=== PATIENT | male | born 1950 | race Caucasian/White ===

== ENCOUNTER 2020-12-31 10:11 | Emergency (ER) | payer OTHER ==
[2020-12-31 12:33] LABS: Protime INR 1.15
[2020-12-31 12:42] LABS: Absolute Lymphocytes (CBC) 0.6 K/uL (0.7-4.9); Basophils % 0.8 % (0-1.3); Hematocrit 31.6 % (39.6-49.0); Lymphocytes % 12.5 % (15.3-44.8); MPV 8.3 fL (7.6-11.3); RBC Red Blood Cell Count 3.65 M/uL (4.33-5.43)
[2020-12-31 12:46] LABS: ALT/SGPT 16 U/L (12-78); AST/SGOT 12 U/L (15-37); Albumin 3.3 g/dL (3.4-5.0); Alkaline Phosphatase 45 U/L (45-117); BUN Blood Urea Nitrogen 21 mg/dL (7-18); Bicarbonate 25 mmol/L (21-32); Bilirubin Direct 0.1 mg/dL (0-0.2); Bilirubin Total 0.5 mg/dL (0.2-1.0); Glucose Level 92 mg/dL (74-106); NT PRO-BNP 280 pg/mL (<125); Potassium 5.2 mmol/L (3.5-5.1); Protein, Total 6.1 g/dL (6.4-8.2); Sodium Level 135 mmol/L (136-145); Troponin (Emerg Dept Use Only) < 0.02 ng/mL (0.0-0.045)
[2020-12-31] MEDS ORDERED: NA CHLORIDE 0.9% 1,000 ML ONE (13:29)
--- NOTE | 2020-12-31 13:40 | RAD REPORT ---
EXAM DESCRIPTION: RAD - Chest Single View - 12/31/2020 1:28 pm CLINICAL HISTORY: CHEST PAIN Chest pain. COMPARISON: Chest Single View dated 01/04/2017; CHEST SINGLE VIEW dated 09/22/2014 FINDINGS: Portable technique limits examination quality. The lungs are grossly clear. The heart is normal in size. No displaced fractures. IMPRESSION: No acute intrathoracic process suspected.
--- NOTE | 2020-12-31 14:52 | ER ---
Nurse's Notes [facility] Name: Thong Mar Age: 70 yrs Sex: Male : 1950 Arrival Date: 12/31/2020 Time: 10:14 Bed 10 Private MD: Diagnosis: Syncope Near;Bradycardia, unspecified;Hyperkalemia;Low back pain-CHRONIC Presentation: 12/31 11:05 Chief complaint: EMS states: Toned out for back pain and generalized weakness, pt was jl7 walking and laid down because his back was hurting. BP 122/78; HR 64. Coronavirus screen: Vaccine status: Patient reports receiving the 2nd dose of the covid vaccine. Ebola Screen: No symptoms or risks identified at this time. Initial Sepsis Screen: Does the patient meet any 2 criteria? No. Patient's initial sepsis screen is negative. Does the patient have a suspected source of infection? No. Patient's initial sepsis screen is negative. Risk Assessment: Do you want to hurt yourself or someone else? Patient reports no desire to harm self or others. Onset of symptoms is unknown. 11:05 Method Of Arrival: EMS: [facility] 7 11:05 Acuity: GAYATRI 3 jl7 11:05 Care prior to arrival: None. jl7 12:06 Acuity: GAYATRI 2 jl7 Triage Assessment: 11:08 General: Appears in no apparent distress. uncomfortable, Behavior is calm, cooperative, jl7 appropriate for age. Pain: Complains of pain in low back area Pain currently is 10 out of 10 on a pain scale. EENT: Oral mucosa is moist. Poor dentition noted. Neuro: Level of Consciousness is awake, alert, obeys commands, Oriented to person, place, time. Cardiovascular: Denies chest pain, Patient's skin is warm and dry. Rhythm is regular. Respiratory: Airway is patent Respiratory effort is even, unlabored, Respiratory pattern is regular, symmetrical. Derm: Skin is dry, Skin is pale, Skin temperature is cool. Historical: - Allergies: 11:08 No Known Allergies; jl7 - Home Meds: 11:08 gabapentin oral [Active]; jl7 - PMHx: 11:08 hypotension; Chronic back pain; jl7 - Immunization history:: Adult Immunizations unknown, Client reports receiving the 2nd dose of the Covid vaccine. - Social history:: Smoking status: Patient denies any tobacco usage or history of. - Family history:: not pertinent. Screenin:20 Abuse screen: Denies threats or abuse. Nutritional screening: No deficits noted. vg1 Nutritional screening: No deficits noted. Tuberculosis screening: No symptoms or risk factors identified. Fall Risk No fall in past 12 months (0 pts). No secondary diagnosis (0 pts). IV access (20 points). Ambulatory Aid- Crutches/Cane/Walker (15 pts). Gait- Weak (10 pts.). Mental Status- Oriented to own ability (0 pts). Total Alvarez Fall Scale indicates High Risk Score (45 or more points). Fall prevention measures have been instituted. Side Rails Up X 2 Placed Close to Nursing Station. Assessment: 12:18 General: Appears in no apparent distress. comfortable, Behavior is calm, cooperative. vg1 Pain: Complains of pain in right arm and left arm and back Pain currently is 10 out of 10 on a pain scale. Quality of pain is described as aching. Neuro: Level of Consciousness is awake, alert, obeys commands, Oriented to person, place, time, situation, Reports dizziness. Cardiovascular: Patient's skin is warm and dry. Respiratory: Airway is patent Respiratory effort is even, unlabored. GI: Reports constipation, bloody stool, nausea, pt states has one BM once a week and occasionally will notice blood in stool. States has to take a laxative to help go to the restroom. : No signs and/or symptoms were reported regarding the genitourinary system. EENT: Lid(s) pale. Derm: Skin is intact, Skin is pale. Musculoskeletal: Circulation, motion, and sensation intact. 13:11 Reassessment: Patient appears in no apparent distress at this time. No changes from vg1 previously documented assessment. Patient and/or family updated on plan of care and expected duration. Pain level reassessed. Patient is alert, oriented x 3, equal unlabored respirations, skin warm/dry/pink. 16:40 Reassessment: Patient appears in no apparent distress at this time. Patient and/or vg1 family updated on plan of care and expected duration. Pain level reassessed. Patient is alert, oriented x 3, equal unlabored respirations, skin warm/dry/pink. Patient denies pain at this time. 17:42 Reassessment: Patient appears in no apparent distress at this time. Patient and/or vg1 family updated on plan of care and expected duration. Pain level reassessed. Pt resting with eyes closed. Vital Signs: 11:05 BP 90 / 67; Pulse 45; Resp 17; Temp 97.8; Pulse Ox 100% on R/A; Weight 61.23 kg (R); jl7 Height 5 ft. 11 in. (180.34 cm); Pain 10/10; 12:00 BP 138 / 100; Pulse 36; Resp 14; Pulse Ox 100% ; vg1 12:06 Pulse 35; jl7 12:56 BP 129 / 70; Pulse 36; Resp 16; Pulse Ox 100% on R/A; ss 13:00 BP 125 / 69; Pulse 37; Resp 14; Pulse Ox 99% ; vg1 13:15 BP 121 / 72; Pulse 37; Resp 16; Pulse Ox 100% on R/A; vg1 13:30 BP 122 / 65; Pulse 38; Resp 16; Pulse Ox 100% on R/A; vg1 14:00 BP 130 / 58; Pulse 37; Resp 14; Pulse Ox 100% on R/A; vg1 14:30 BP 138 / 64; Pulse 37; Resp 14; Pulse Ox 100% on R/A; vg1 15:00 BP 126 / 72; Pulse 37; Resp 14; Pulse Ox 100% on R/A; vg1 15:30 BP 124 / 70; Pulse 38; Resp 14; Pulse Ox 100% on R/A; vg1 16:00 BP 117 / 54; Pulse 54; Resp 14; Pulse Ox 100% on R/A; vg1 16:30 BP 111 / 61; Pulse 53; Resp 14; Pulse Ox 98% on R/A; vg1 17:30 BP 118 / 67; Pulse 45; Resp 16; Pulse Ox 98% on R/A; vg1 11:05 Body Mass Index 18.83 (61.23 kg, 180.34 cm) jl7 ED Course: 10:14 Patient arrived in ED. rg4 11:08 Triage completed. jl7 11:08 Arm band placed on right wrist. jl7 11:20 Patient placed in waiting room, Patient notified of wait time. jl7 12:03 Initial lab(s) drawn, by me, sent to lab. Inserted saline lock: 20 gauge in right vg1 forearm, using aseptic technique. Blood collected. 12:17 Fatimah Argueta, RN is Primary Nurse. vg1 12:20 Patient has correct armband on for positive identification. Bed in low position. Call vg1 light in reach. Side rails up X2. clinical research monitor on. Pulse ox on. NIBP on. 12:20 No provider procedures requiring assistance completed. vg1 12:58 Bin Cornelius MD is Attending Physician. [facility] 13:21 Inserted saline lock: 18 gauge in left forearm, using aseptic technique. Blood ds4 collected. 13:28 XRAY Chest (1 view) In Process Unspecified. EDMS 14:49 Bernabe Kaiser DO is Hospitalizing Provider. [facility] 19:54 Patient transferred, IV remains in place. vg1 Administered Medications: 13:21 Drug: NS 0.9% 1000 ml Route: IV; Rate: 125 ml/hr; Site: right forearm; vg1 19:54 Follow up: IV Status: Infusion continued upon transfer vg1 15:25 Drug: Albuterol 5 mg Route: Inhalation; vg1 15:30 Drug: Kayexalate (polystyrene) 45 grams Route: PO; vg1 19:07 Follow up: Response: No adverse reaction vg1 Outcome: 14:51 Decision to Hospitalize by Provider. joseph 16:10 ER care complete, transfer ordered by . [facility] 19:54 Transferred by ground EMS to [facility]. vg1 19:54 Condition: stable 19:54 Instructed on the need for transfer. 20:02 Patient left the ED. vg1 Signatures: Dispatcher [employer] EDSD Bin Cornelius MD MD cha Smirch, Shelby RN RN Milton Cantu ds4 Ludy Argueta rg4 Prema Gamboa RN RN jl7 Fatimah Argueta, RN RN vg1 Corrections: (The following items were deleted from the chart) 13:45 13:10 BP 125 / 69; Pulse 37bpm; Resp 14bpm; Pulse Ox 99%; vg1 vg1
--- NOTE | 2020-12-31 14:52 | EDPHYS ---
Physician Documentation [facility] Name: Thong Mar Age: 70 yrs Sex: Male : 1950 Arrival Date: 12/31/2020 Time: 10:14 Bed 10 Private MD: ED Physician Bin Cornelius HPI: 12/31 14:36 This 70 yrs old Male presents to ER via EMS with complaints of Weakness. joseph 14:36 The patient presents with a history of irregular heart beat. Context: The symptoms joseph occur with light activity. Onset: The symptoms/episode began/occurred just prior to arrival. Duration: The patient or guardian reports multiple episodes, with no pattern. Modifying factors: The symptoms are aggravated by nothing. The symptoms are alleviated by nothing. The patient presents with pain that is acute. The symptoms are located in the low back. The pain does not radiate. Historical: - Allergies: 11:08 No Known Allergies; jl7 - Home Meds: 11:08 gabapentin oral [Active]; jl7 - PMHx: 11:08 hypotension; Chronic back pain; jl7 - Immunization history:: Adult Immunizations unknown, Client reports receiving the 2nd dose of the Covid vaccine. - Social history:: Smoking status: Patient denies any tobacco usage or history of. - Family history:: not pertinent. ROS: 14:36 Constitutional: Negative for fever, chills, and weight loss, Eyes: Negative for injury, josehp pain, redness, and discharge, ENT: Negative for injury, pain, and discharge, Neck: Negative for injury, pain, and swelling, Respiratory: Negative for shortness of breath, cough, wheezing, and pleuritic chest pain, Abdomen/GI: Negative for abdominal pain, nausea, vomiting, diarrhea, and constipation, : Negative for injury, bleeding, discharge, and swelling, MS/Extremity: Negative for injury and deformity, Skin: Negative for injury, rash, and discoloration, Neuro: Negative for headache, weakness, numbness, tingling, and seizure, Psych: Negative for depression, anxiety, suicide ideation, homicidal ideation, and hallucinations, Allergy/Immunology: Negative for hives, rash, and allergies, Endocrine: Negative for neck swelling, polydipsia, polyuria, polyphagia, and marked weight changes, Hematologic/Lymphatic: Negative for swollen nodes, abnormal bleeding, and unusual bruising. 14:36 Cardiovascular: Positive for palpitations. 14:36 Back: Positive for decreased range of motion, 3 yrs no different. Exam: 14:36 Constitutional: This is a well developed, well nourished patient who is awake, alert, joseph and in no acute distress. Head/Face: Normocephalic, atraumatic. Eyes: Pupils equal round and reactive to light, extra-ocular motions intact. Lids and lashes normal. Conjunctiva and sclera are non-icteric and not injected. Cornea within normal limits. Periorbital areas with no swelling, redness, or edema. ENT: Nares patent. No nasal discharge, no septal abnormalities noted. Tympanic membranes are normal and external auditory canals are clear. Oropharynx with no redness, swelling, or masses, exudates, or evidence of obstruction, uvula midline. Mucous membranes moist. Neck: Trachea midline, no thyromegaly or masses palpated, and no cervical lymphadenopathy. Supple, full range of motion without nuchal rigidity, or vertebral point tenderness. No Meningismus. Chest/axilla: Normal chest wall appearance and motion. Nontender with no deformity. No lesions are appreciated. Respiratory: Lungs have equal breath sounds bilaterally, clear to auscultation and percussion. No rales, rhonchi or wheezes noted. No increased work of breathing, no retractions or nasal flaring. Abdomen/GI: Soft, non-tender, with normal bowel sounds. No distension or tympany. No guarding or rebound. No evidence of tenderness throughout. Male : Normal genitalia with no discharge or lesions. Skin: Warm, dry with normal turgor. Normal color with no rashes, no lesions, and no evidence of cellulitis. MS/ Extremity: Pulses equal, no cyanosis. Neurovascular intact. Full, normal range of motion. Neuro: Awake and alert, GCS 15, oriented to person, place, time, and situation. Cranial nerves II-XII grossly intact. Motor strength 5/5 in all extremities. Sensory grossly intact. Cerebellar exam normal. Normal gait. Psych: Awake, alert, with orientation to person, place and time. Behavior, mood, and affect are within normal limits. 14:36 Cardiovascular: Rate: bradycardic, Rhythm: regular, Pulses: Pulses are 4+ in bilateral radial, brachial, femoral, popliteal, posterior tibial and and dorsalis pedis arteries.. Heart sounds: normal, murmur, rub, gallop, Edema: is not appreciated, JVD: is not appreciated, Bilateral blood pressure: is equal. 14:51 ECG was reviewed by the Attending Physician. joseph 14:51 ECG was reviewed by the Attending Physician. [facility] Vital Signs: 11:05 BP 90 / 67; Pulse 45; Resp 17; Temp 97.8; Pulse Ox 100% on R/A; Weight 61.23 kg (R); jl7 Height 5 ft. 11 in. (180.34 cm); Pain 10/10; 12:00 BP 138 / 100; Pulse 36; Resp 14; Pulse Ox 100% ; vg1 12:06 Pulse 35; jl7 12:56 BP 129 / 70; Pulse 36; Resp 16; Pulse Ox 100% on R/A; ss 13:00 BP 125 / 69; Pulse 37; Resp 14; Pulse Ox 99% ; vg1 13:15 BP 121 / 72; Pulse 37; Resp 16; Pulse Ox 100% on R/A; vg1 13:30 BP 122 / 65; Pulse 38; Resp 16; Pulse Ox 100% on R/A; vg1 14:00 BP 130 / 58; Pulse 37; Resp 14; Pulse Ox 100% on R/A; vg1 14:30 BP 138 / 64; Pulse 37; Resp 14; Pulse Ox 100% on R/A; vg1 15:00 BP 126 / 72; Pulse 37; Resp 14; Pulse Ox 100% on R/A; vg1 15:30 BP 124 / 70; Pulse 38; Resp 14; Pulse Ox 100% on R/A; vg1 16:00 BP 117 / 54; Pulse 54; Resp 14; Pulse Ox 100% on R/A; vg1 16:30 BP 111 / 61; Pulse 53; Resp 14; Pulse Ox 98% on R/A; vg1 17:30 BP 118 / 67; Pulse 45; Resp 16; Pulse Ox 98% on R/A; vg1 11:05 Body Mass Index 18.83 (61.23 kg, 180.34 cm) 7 MDM: 12:58 Patient medically screened. joseph 14:40 Differential diagnosis: arrythmia, dehydration, Cholelithiasis chronic back pain, joseph Fatigue Joint Injury Osteoarthritis Peptic Ulcer Pyelonephritis. Data reviewed: vital signs, nurses notes, EMS record, lab test result(s), EKG, radiologic studies, plain films. Data interpreted: air sampling and monitoring: rate is 38 beats/min, rhythm is regular, Pulse oximetry: on room air is 100 %. Test interpretation: by ED physician or midlevel provider: ECG, plain radiologic studies. Counseling: I had a detailed discussion with the patient and/or guardian regarding: the historical points, exam findings, and any diagnostic results supporting the discharge/admit diagnosis, lab results. 12/31 12:06 Order name: Basic Metabolic Panel; Complete Time: 12:58 ss 12/31 12:06 Order name: CBC with Diff; Complete Time: 12:58 ss 12/31 12:06 Order name: LFT's; Complete Time: 12:58 ss 12/31 12:06 Order name: Magnesium; Complete Time: 12:58 ss 12/31 12:06 Order name: NT PRO-BNP; Complete Time: 12:58 ss 12/31 12:06 Order name: PT-INR; Complete Time: 12:58 ss 12/31 12:06 Order name: Troponin (emerg Dept Use Only); Complete Time: 12:58 ss 12/31 12:06 Order name: XRAY Chest (1 view); Complete Time: 14:34 ss 12/31 12:06 Order name: Type And Screen; Complete Time: 14:41 ss 12/31 13:01 Order name: Urine Culture [facility] 12/31 14:38 Order name: ABO/RH no charge; Complete Time: 14:41 EDMS 12/31 15:44 Order name: Urine Dipstick-Ancillary; Complete Time: 16:07 EDMS 12/31 17:18 Order name: SARS-COV-2 RT PCR; Complete Time: 17:57 EDMS 12/31 12:06 Order name: EKG; Complete Time: 12:06 ss 12/31 12:06 Order name: Cardiac monitoring; Complete Time: 12:21 ss 12/31 12:06 Order name: EKG - Nurse/Tech; Complete Time: 12:06 ss 12/31 12:06 Order name: IV Saline Lock; Complete Time: 12:21 ss 12/31 12:06 Order name: Labs collected and sent; Complete Time: 12:21 ss 12/31 12:06 Order name: O2 Per Protocol; Complete Time: 12:16 ss 12/31 12:06 Order name: O2 Sat Monitoring; Complete Time: 12:17 ss 12/31 13:01 Order name: Urine Dipstick-Ancillary (obtain specimen); Complete Time: 16:20 joseph EC:51 Rate is 35 beats/min. Rhythm is regular. QRS [place] is Normal. [place] interval is normal. QRS joseph interval is normal. QT interval is normal. No Q waves. T waves are Normal. No ST changes noted. Clinical impression: Sinus bradycardia and No evidence of ischemia. Interpreted by me. Reviewed by me. 14:51 Rate is 39 beats/min. Rhythm is regular. QRS [place] is Normal. [place] interval is normal. QRS joseph interval is normal. QT interval is normal. No Q waves. T waves are Normal. No ST changes noted. Clinical impression: Sinus bradycardia and No evidence of ischemia. Interpreted by me. Reviewed by me. Administered Medications: 13:21 Drug: NS 0.9% 1000 ml Route: IV; Rate: 125 ml/hr; Site: right forearm; vg1 19:54 Follow up: IV Status: Infusion continued upon transfer vg1 15:25 Drug: Albuterol 5 mg Route: Inhalation; vg1 15:30 Drug: Kayexalate (polystyrene) 45 grams Route: PO; vg1 19:07 Follow up: Response: No adverse reaction vg1 Disposition Summary: 12/31/20 16:10 Transfer Ordered Transfer Location: [facility] joseph Reason: Higher level of care joseph Condition: Fair(12/31/20 16:10) joseph Problem: new(12/31/20 16:10) joseph Symptoms: have improved(12/31/20 16:10) joseph Accepting Physician: TO [facility](12/31/20 20:02) vg1 Diagnosis - Syncope Near(12/31/20 16:10) joseph - Bradycardia, unspecified(12/31/20 16:10) joseph - Hyperkalemia joseph - Low back pain - CHRONIC(12/31/20 16:11) joseph Forms: - Medication Reconciliation Form joseph - SBAR form joseph Signatures: Dispatcher [employer] Bin Aguiar MD MD cha Smirch, Shelby, RN RN ss Prema Gamboa RN RN jl7 Fatimah Argueta RN RN vg1 Corrections: (The following items were deleted from the chart) 16: 14:51 Observation joseph joseph 16: 14:51 PrezaBernabe johnson joseph joseph 16: 14:51 Telemetry/MedSurg (observation) joseph joseph 16: 14:51 Fair joseph joseph 16: 14:51 new joseph joseph 16: 14:51 have improved joseph joseph 16: 14:51 Standard joseph joseph 16: 14:51 joseph joseph 16: 14:51 Bradycardia, unspecified joseph joseph 16: 14:51 Low back pain - chronic joseph joseph 16: 14:51 Weakness joseph joseph 16: 14:51 Syncope Near joseph joseph 16:11 16:10 TO [facility] joseph joseph 16:18 15:01 CORONAVIRUS+MR.LAB.BRZ ordered. EDMS EDMS 20:02 16:11 TO [facility] vg1
[2020-12-31] MEDS ORDERED: SOD POLYSTYREN SUL 15 GM/60 ML UCUP ONE (15:39)
[2020-12-31] MEDS ORDERED: ALBUTEROL INHALER 60 PUFF/8 GM IH ONE (15:39)
[2020-12-31 15:44] LABS: Urine Blood Negative (Negative); Urine Glucose Negative (Negative); Urine Protein Negative (Negative); Urine pH 5.5 (5.0-7.0)
[2020-12-31 20:43] VITALS: TEMP 97.8
[2020-12-31 20:58] VITALS: O2SAT 98
[2020-12-31 20:59] VITALS: BP 118/67
--- NOTE | 2021-01-01 11:07 | EKG ---
Test Date: 2020-12-31 Test Time: 14:42:29 Motor Scooter Repairer: JEANMARIE MEASUREMENT RESULTS: Intervals: Rate: 39 [place]: QRSD: 78 QT: 502 QTc: 404 [place]: P: [place]: QRS: 37 T: 72 INTERPRETIVE STATEMENTS: Junctional bradycardia Abnormal ECG Compared to ECG 12/31/2020 12:03:04 Sinus bradycardia no longer present Electronically Signed On 01-01-21 11:05:40 CDT by Evaristo Shirley
== END 2020-12-31 20:02 | disposition short-term general hospital (02) ==
LOC: ER 10:11
DX: R00.1 Bradycardia, unspecified (principal); E87.5 Hyperkalemia; M54.5 Low back pain; I95.9 Hypotension, unspecified; Z20.822 Contact with and (suspected) exposure to COVID-19
CPT/HCPCS: 96361; 93005 ×2; 87088; 85025; 87086; 80048; 36415; 86900; 83735; 86850; 85610; 86901; 80076; 81003; 84484; 83880; 71045; 96360; 99285; U0003; J7030

== ENCOUNTER 2021-01-28 11:58 | Emergency (ER) | payer OTHER ==
[2021-01-28 12:23] LABS: Absolute Lymphocytes (CBC) 0.6 K/uL (0.7-4.9); Basophils % 0.3 % (0-1.3); Hematocrit 30.1 % (39.6-49.0); Lymphocytes % 8.7 % (15.3-44.8); MPV 7.5 fL (7.6-11.3); RBC Red Blood Cell Count 3.36 M/uL (4.33-5.43)
[2021-01-28 12:26] LABS: Protime INR 1.09
[2021-01-28 12:45] LABS: BUN Blood Urea Nitrogen 37 mg/dL (7-18); Bicarbonate 30 mmol/L (21-32); Glucose Level 111 mg/dL (74-106); Potassium 4.4 mmol/L (3.5-5.1); Sodium Level 136 mmol/L (136-145)
--- NOTE | 2021-01-28 13:24 | RAD REPORT ---
EXAM DESCRIPTION: RAD - Pelvis - 01/28/2021 1:13 pm CLINICAL HISTORY: Pelvic pain status post injury FINDINGS: A subcapital mildly to moderately displaced fracture right femur. No dislocation
--- NOTE | 2021-01-28 13:25 | RAD REPORT ---
EXAM DESCRIPTION: RAD - Hip Right 2 View - 01/28/2021 1:21 pm CLINICAL HISTORY: Right hip pain FINDINGS: A subcapital mildly to moderately displaced fracture right femur. No dislocation
[2021-01-28] MEDS ORDERED: MORPHINE 2 MG/ML SYR ONE ×3 (13:33→15:27)
[2021-01-28] MEDS ORDERED: ONDANSETRON 4 MG/2 ML VIAL ONE (13:34)
--- NOTE | 2021-01-28 14:11 | ER ---
Nurse's Notes [facility] Name: Thong Mar Age: 70 yrs Sex: Male : 1950 Arrival Date: 01/28/2021 Time: 12:02 Bed 17 Private MD: Diagnosis: Fracture of unspecified part of neck of right femur-Subcapital Presentation: 01/28 12:04 Chief complaint: EMS states: patient fell while getting mail this morning. Coronavirus es2 screen: Vaccine status:. Ebola Screen: Patient negative for fever greater than or equal to 101.5 degrees Fahrenheit, and additional compatible Ebola Virus Disease symptoms Patient denies exposure to infectious person. Patient denies travel to an Ebola-affected area in the 21 days before illness onset. No symptoms or risks identified at this time. Initial Sepsis Screen: Does the patient meet any 2 criteria? No. Patient's initial sepsis screen is negative. Does the patient have a suspected source of infection? No. Patient's initial sepsis screen is negative. Risk Assessment: Do you want to hurt yourself or someone else? Patient reports no desire to harm self or others. Onset of symptoms was January 28, 2021. 12:04 Method Of Arrival: EMS: [facility] es2 12:04 Acuity: GAYATRI 3 es2 Triage Assessment: 12:08 General: Appears well nourished, Behavior is calm, cooperative, appropriate for age. es2 Pain: Denies pain. EENT: No signs and/or symptoms were reported regarding the EENT system. Neuro: Level of Consciousness is awake, alert, obeys commands, Oriented to person, place, time, situation, Appropriate for age Speech is normal. Cardiovascular: Patient's skin is warm and dry. Respiratory: Airway is patent Respiratory effort is even, unlabored, Respiratory pattern is regular, symmetrical. GI: No signs and/or symptoms were reported involving the gastrointestinal system. : No signs and/or symptoms were reported regarding the genitourinary system. Derm: No signs and/or symptoms reported regarding the dermatologic system. Musculoskeletal: Reports discomfort and not being able to walk due to R hip. Historical: - Allergies: 12:06 No Known Allergies; es2 - Home Meds: 12:05 gabapentin 300 mg oral cap 1 cap daily [Active]; es2 12:06 indomethacin 50 mg Oral cap 1 cap as needed [Active]; Ginette Back and Body 500-32.5 mg es2 oral tab as needed [Active]; - PMHx: 12:05 chronic back pain; hypotension; pacemaker; es2 - Immunization history:: Adult Immunizations up to date. - Social history:: Smoking status: Patient denies any tobacco usage or history of. - Family history:: not pertinent. - Hospitalizations: : No recent hospitalization is reported. Screenin:12 Abuse screen: Denies threats or abuse. Denies injuries from another. Nutritional es2 screening: No deficits noted. Tuberculosis screening: No symptoms or risk factors identified. Fall Risk Fall in past 12 months (25 points). IV access (20 points). Mental Status- Oriented to own ability (0 pts). Assessment: 12:11 Reassessment: Patient is alert, oriented x 3, equal unlabored respirations, skin es2 warm/dry/pink. Patient denies pain at this time. General: Appears Behavior is calm, cooperative, appropriate for age. Pain: Denies pain. Neuro: Level of Consciousness is awake, alert, obeys commands, Oriented to person, place, time, situation, Appropriate for age Speech is normal. Cardiovascular: Patient's skin is warm and dry. Respiratory: Airway is patent Respiratory effort is even, unlabored, Respiratory pattern is regular, symmetrical. GI: No signs and/or symptoms were reported involving the gastrointestinal system. : No signs and/or symptoms were reported regarding the genitourinary system. EENT: No signs and/or symptoms were reported regarding the EENT system. Derm: No signs and/or symptoms reported regarding the dermatologic system. 14:44 Reassessment: Patient and/or family updated on plan of care and expected duration. Pain ch5 level reassessed. Patient is alert, oriented x 3, equal unlabored respirations, skin warm/dry/pink. Pt resting in room, aware of transfer, awaiting transportation. Vital Signs: 12:04 BP 108 / 73; Pulse 80; Resp 18; Temp 98.2; Pulse Ox 95% on R/A; es2 14:44 BP 152 / 84; Pulse 70; Resp 17; Pulse Ox 96% on R/A; ch5 ED Course: 12:02 Patient arrived in ED. ch5 12:02 Graf, Shahrzad, RN is Primary Nurse. es2 12:04 Emory Anna MD is Attending Physician. rn 12:05 Triage completed. es2 12:11 Arm band placed on. es2 12:12 Patient has correct armband on for positive identification. Bed in low position. Call es2 light in reach. Side rails up X2. 12:12 Basic Metabolic Panel Sent. es2 12:13 Inserted saline lock: 20 gauge in right forearm, using aseptic technique. Blood es2 collected. 13:14 XRAY Pelvis In Process Unspecified. EDMS 13:21 XRAY Hip RIGHT 2 view In Process Unspecified. EDMS 14:44 CBC with Diff Sent. ch5 Administered Medications: 13:13 Drug: morphine 2 mg Route: IVP; Site: right forearm; ch5 14:45 Follow up: Response: No adverse reaction ch5 13:14 Drug: Zofran (Ondansetron) 4 mg Route: IVP; Site: right forearm; ch5 14:45 Follow up: Response: No adverse reaction ch5 13:20 Drug: morphine 2 mg Route: IVP; Site: right forearm; ch5 14:45 Follow up: Response: No adverse reaction ch5 15:05 Drug: morphine 2 mg {Note: Rass 0.} Route: IVP; Site: right forearm; ch5 15:05 Follow up: Response: No adverse reaction ch5 Outcome: 14:10 ER care complete, transfer ordered by . rn 15:14 Patient left the ED. ch5 Signatures: Dispatcher [employer] Emory Briseno MD MD rn Heath, Christopher, RN RN ch5 Shahrzad Graf RN RN es2
--- NOTE | 2021-01-28 14:11 | EDPHYS ---
Physician Documentation [facility] Name: Thong Mar Age: 70 yrs Sex: Male : 1950 Arrival Date: 01/28/2021 Time: 12:02 Bed 17 Private MD: ED Physician Emory Anna HPI: 01/28 13:12 This 70 yrs old Male presents to ER via EMS with complaints of Fall Injury, rn Hip Pain. 13:12 Details of fall: The patient fell from an upright position, while standing. Onset: The rn symptoms/episode began/occurred just prior to arrival. Associated injuries: The patient sustained Right hip. Severity of symptoms: At their worst the symptoms were moderate, in the emergency department the symptoms are unchanged. The patient has not experienced similar symptoms in the past. The patient has not recently seen a physician. Patient reports getting mail when tripped, fell onto her right hip, reports isolated injury to right hip and thigh. Denies taking any blood thinners. No head injury or loss of consciousness. Remembers all events. Reports remained on ground until somebody came by to help him.. Historical: - Allergies: 12:06 No Known Allergies; es2 - Home Meds: 12:05 gabapentin 300 mg oral cap 1 cap daily [Active]; es2 12:06 indomethacin 50 mg Oral cap 1 cap as needed [Active]; Ginette Back and Body 500-32.5 mg es2 oral tab as needed [Active]; - PMHx: 12:05 chronic back pain; hypotension; pacemaker; es2 - Immunization history:: Adult Immunizations up to date. - Social history:: Smoking status: Patient denies any tobacco usage or history of. - Family history:: not pertinent. - Hospitalizations: : No recent hospitalization is reported. ROS: 13:12 Constitutional: Negative for fever, chills, and weight loss, Eyes: Negative for injury, rn pain, redness, and discharge, Neck: Negative for injury, pain, and swelling, Cardiovascular: Negative for chest pain, palpitations, and edema, Respiratory: Negative for shortness of breath, cough, wheezing, and pleuritic chest pain, Abdomen/GI: Negative for abdominal pain, nausea, vomiting, diarrhea, and constipation, Back: Negative for injury and pain, : Negative for injury, bleeding, discharge, and swelling, MS/Extremity: Positive for right hip injury and pain Skin: Negative for injury, rash, and discoloration, Neuro: Negative for headache, weakness, numbness, tingling, and seizure. Exam: 13:12 Constitutional: This is a well developed, well nourished patient who is awake, alert, rn and in no acute distress. Head/Face: Normocephalic, atraumatic. Eyes: Periorbital areas with no swelling, redness, or edema. Cardiovascular: Irregular rhythm, regular rate. No pulse deficits. Respiratory: No increased work of breathing, no retractions or nasal flaring. Abdomen/GI: Soft, non-tender Skin: Warm, dry, no laceration MS/ Extremity: Pulses equal, no cyanosis. Full range of motion left leg. Painful range of motion with tenderness proximal right leg near hip. Neuro: Awake and alert, GCS 15, oriented to person, place, time, and situation. Cranial nerves II-XII grossly intact. Motor strength 5/5 in all extremities. Sensory grossly intact. Vital Signs: 12:04 BP 108 / 73; Pulse 80; Resp 18; Temp 98.2; Pulse Ox 95% on R/A; es2 14:44 BP 152 / 84; Pulse 70; Resp 17; Pulse Ox 96% on R/A; ch5 MDM: 12:04 Patient medically screened. rn 14:06 Differential diagnosis: contusion, fracture, sprain, strain. Data reviewed: vital rn signs, nurses notes, lab test result(s), EKG, radiologic studies, plain films, and as a result, I will admit patient. Test interpretation: by ED physician or midlevel provider: plain radiologic studies, X-ray right hip shows a subcapital femoral fracture on the right side. Counseling: I had a detailed discussion with the patient and/or guardian regarding: the historical points, exam findings, and any diagnostic results supporting the discharge/admit diagnosis, radiology results, the need for outpatient follow up, to return to the emergency department if symptoms worsen or persist or if there are any questions or concerns that arise at home. Response to treatment: the patient's symptoms have mildly improved after treatment, and as a result, I will admit patient. 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 Will have to transfer for subcapital right femoral fracture. Patient's pain improved. Initiated transfer to [facility].. 01/28 12:04 Order name: CBC with Diff rn 01/28 12:04 Order name: Basic Metabolic Panel rn 01/28 12:04 Order name: Protime (+inr); Complete Time: 13:35 rn 01/28 12:04 Order name: Ptt, Activated; Complete Time: 13:35 rn 01/28 12:05 Order name: CBC with Automated Diff; Complete Time: 13:35 EDMS 01/28 12:05 Order name: Basic Metabolic Panel; Complete Time: 13:35 EDMS 01/28 12:04 Order name: IV Start; Complete Time: 12:12 rn 01/28 12:04 Order name: XRAY Hip RIGHT 2 view; Complete Time: 13:35 rn 01/28 12:04 Order name: EKG; Complete Time: 12:05 rn 01/28 12:04 Order name: XRAY Pelvis; Complete Time: 13:35 rn 01/28 12:04 Order name: EKG - Nurse/Tech; Complete Time: 12:23 rn Administered Medications: 13:13 Drug: morphine 2 mg Route: IVP; Site: right forearm; ch5 14:45 Follow up: Response: No adverse reaction ch5 13:14 Drug: Zofran (Ondansetron) 4 mg Route: IVP; Site: right forearm; ch5 14:45 Follow up: Response: No adverse reaction ch5 13:20 Drug: morphine 2 mg Route: IVP; Site: right forearm; ch5 14:45 Follow up: Response: No adverse reaction ch5 15:05 Drug: morphine 2 mg {Note: Rass 0.} Route: IVP; Site: right forearm; ch5 15:05 Follow up: Response: No adverse reaction ch5 Disposition Summary: 01/28/21 14:10 Transfer Ordered Transfer Location: [facility] rn Reason: Higher level of care rn Condition: Stable rn Problem: new rn Symptoms: have improved rn Accepting Physician: Dr. Saleh(01/28/21 15:14) ch5 Diagnosis - Fracture of unspecified part of neck of right femur - Subcapital rn Forms: - Medication Reconciliation Form rn - SBAR form rn Signatures: Dispatcher [employer] EDCA Emory Anna MD MD rn Heath, Christopher RN RN ch5 Shahrzad Graf RN RN es2 Corrections: (The following items were deleted from the chart) 13:15 13:12 Constitutional: Negative for fever, chills, and weight loss, Eyes: Negative for rn injury, pain, redness, and discharge, Neck: Negative for injury, pain, and swelling, Cardiovascular: Negative for chest pain, palpitations, and edema, Respiratory: Negative for shortness of breath, cough, wheezing, and pleuritic chest pain, Abdomen/GI: Negative for abdominal pain, nausea, vomiting, diarrhea, and constipation, Back: Negative for injury and pain, : Negative for injury, bleeding, discharge, and swelling, MS/Extremity: Positive for right hip injury and pain Skin: Negative for injury, rash, and discoloration, Neuro: Negative for headache, weakness, numbness, tingling, and seizure, rn 13:16 13:12 Constitutional: This is a well developed, well nourished patient who is awake, rn alert, and in no acute distress. rn 15:14 14:10 Dr. Saleh rn ch5
[2021-01-28 15:20] VITALS: TEMP 98.2
[2021-01-28 15:21] VITALS: BP 152/84; O2SAT 96
--- NOTE | 2021-01-29 10:42 | EKG ---
Test Date: 2021-01-28 Test Time: 12:19:06 Warranty Clerk: Tena Ayala MEASUREMENT RESULTS: Intervals: Rate: 82 IN: QRSD: 146 QT: 450 QTc: 525 [place]: P: IN: QRS: -81 T: 98 INTERPRETIVE STATEMENTS: Wide QRS rhythm with frequent atrial-paced complexes and premature supraventricular complexes in a pattern of bigeminy Left axis deviation Right bundle branch block Possible Lateral infarct, age undetermined Inferior infarct, age undetermined Abnormal ECG Compared to ECG 12/31/2020 14:42:29 Uncertain supraventricular rhythm now present Atrial premature complex(es) now present Left-axis deviation now present Right bundle-branch block now present Myocardial infarct finding now present Electronically Signed On 01-29-21 10:40:01 CDT by Evaristo Shirley
== END 2021-01-28 15:14 | disposition short-term general hospital (02) ==
LOC: ER 11:58
DX: S72.011A Unspecified intracapsular fracture of right femur, initial encounter for closed fracture (principal); W01.0XXA Fall on same level from slipping, tripping and stumbling without subsequent striking against object, initial encounter; I95.9 Hypotension, unspecified; Z95.0 Presence of cardiac pacemaker
CPT/HCPCS: 93005; 85025; 80048; 36415; 85610; 85730; 72170; 73502; 96375; 96374; 99284; J2270 ×3; J2405

== ENCOUNTER 2021-05-09 13:37 | Emergency (ER) | payer OTHER, SELFPAY ==
--- OUTSIDE RECORDS SUMMARY | 2021-05-09 13:48 | XMS REPORT | Continuity of Care Document ---
:1950 Author Organization [facility] t Address [address] [place] [address] Care Team Providers Name Role Phone No Primary Care Physician Unavailable LISBET Attending Clinician Unavailable JADE Attending Clinician Unavailable Lacy OJEDA Attending Clinician Unavailable Dora Sutton MD Attending Clinician Lacy Ojeda MD Attending Clinician Ernestina QUAN Attending Clinician Nara Loving MD Attending Clinician Raffi Mead MD Attending Clinician Vanessa Gupta MD Attending Clinician Poncho Esquivel MD Attending Clinician Joshua QUAN Attending Clinician Lacy OJEDA Admitting Clinician Unavailable NARA LOVING Admitting Clinician Unavailable Payers Payer Name Policy Type Policy Number Effective Date Expiration Date S clifford MEDICARE PART A [id number] 2015 2015 AND B 00:00:00 00:00:00 MEDICARE PART A [id number] 2015 00:00:00 Problems Condition Condition Condition Status Onset Resolution Last Treating Co mments Source Name Details Category Date Date Treatment Clinician Date Other Other Disease Active 2020-05 [place] fracture fracture 05-03 Health of head of head 00:00: and neck and neck 00 of right of right femur, femur, initial initial encounter encounter for closed for closed fracture fracture 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 01-11 [facility] - malnutriti malnutriti 00:00: Me dical on on Center MDT DDD MDT DDD Disease Active [facility] pacemaker pacemaker 01-05 [facility] - implant:9::00: Me dical 11/18 Center Chronic Chronic Disease Active [facility] fatigue fatigue 01-01 [facility] Anemia Anemia Disease Active [facility] Junctional Junctional Disease Active [facility] rhythm rhythm 01-01 [facility] - 00:[facility]: [facility] [place] Chronotrop Chronotrop Disease Active [facility] ic ic 01-01 [facility] - incompeten incompeten 00:00: Me dical ce [place] Cachectic Cachectic Disease Active [facility] 01[facility]01 [facility] - [facility]: [facility] [place] Bradycardi Bradycardi Disease Active [facility] a a 12-31 [facility] - 00:00: Medical 00 Center Allergies, Adverse Reactions, Alerts Allergy Allergy Status Severity Reaction(s) Onset Inactive Treating Comm ents Source Name Type Date Date Clinician NKA Allergy Active ENCCLR 01-28 11:57: 41 NO KNOWN Allergy Active [facility] Social History Social Habit Start Date Stop Date Quantity Comments Source Exposure to Not sure [facility] SARS-CoV-2 (event) Tobacco use and 2021-01-02 2021-01-[address] [facility] [facility] - exposure 00:00:00 00:00:00 Medical Center Sex Assigned At [birth year] [place] [facility] 00:[facility]:00 00:00:00 Smoking Status Start Date Stop Date Source Tobacco smoking [facility] consumption unknown Former smoker 2021-01-02 00:00:00 2021-01-[address] [facility] Medications Ordered Filled Start Stop Current Ordering Indication Dosage Frequency Signature Comments Components Source Medication Medication Date Date Medication? Clinician (SIG) Name Name folic acid 2021- 1mg QD Take [address] [facility] [address] (FOLVITE) 1 01-16 tablet (1 Nu kes - MG tablet 00:00: 23:59 mg total) Me dical 00 :00 by mouth Center daily. multivitami 2021- No 1{tbl} QD Take [address] n 01-16 tablet by [facility] - (THERAGRAN) 00:00: 23:59 mouth Medi osiel tablet 00 :00 daily. Center pantoprazol Yes 40mg Q.5D Take [address] [facility] e 01-15 tablet (40 [facility] - (PROTONIX) 00:00: mg total) Me dical 40 MG 00 by mouth 2 Center tablet (two) times daily. fludrocorti 2021- No .1mg QD Take [address] sone 01-15 tablet [facility] - (FLORINEF) 00:00: 23:59 (0.1 mg Med ical 0.1 mg 00 :00 total) by Center tablet mouth daily. midodrine 2020- No 10mg [id number] Take [address] (PROAMATINE 01-15 [id number] tablet (10 [facility] - ) 10 MG 00:00: 23:59 3D mg total) Medi osiel tablet 00 :00 by mouth 3 Center (three) times daily for 30 days. Vital Signs Vital Name Observation Time Observation Value Comments Source WEIGHT 2021-01-15 06:48:00 59.603 kg WEIGHT 2021-01-13 04:41:00 59.149 kg WEIGHT 2021-01-12 04:45:00 59.24 kg WEIGHT 2021-01-10 05:23:00 58.741 kg HEIGHT 2021-01-09 03:58:00 177 cm WEIGHT 2021-01-03 06:00:00 60.3 kg HEIGHT 2020-12-31 21:54:00 177.8 cm WEIGHT 2020-12-31 21:54:00 61.644 kg WEIGHT 2021-01-15 06:48:00 59.603 kg WEIGHT 2021-01-13 04:41:00 59.149 kg WEIGHT 2021-01-12 04:45:00 59.24 kg WEIGHT 2021-01-10 05:23:00 58.741 kg HEIGHT 2021-01-09 03:58:00 177 cm WEIGHT 2021-01-03 06:00:00 60.3 kg HEIGHT 2020-12-31 21:54:00 177.8 cm WEIGHT 2020-12-31 21:54:00 61.644 kg Systolic blood 2021-01-15 15:18:00 140 mm[Hg] [facility] Diastolic blood 2021-01-15 15:18:00 65 mm[Hg] [facility] Heart rate 2021-01-15 15:18:00 60 /min [facility] Body temperature 2021-01-15 15:18:00 36.67 Jacqueline [facility] Respiratory rate 2021-01-15 15:18:00 21 /min [facility] Oxygen saturation in 2021-01-15 15:18:00 97 /min [facility] Arterial blood by Medical Ce nter Pulse oximetry Body weight 2021-01-15 06:48:00 59.603 kg [facility] BMI 2021-01-15 06:48:00 19.02 kg/m2 [facility] Body height 2021-01-09 03:58:00 177 cm [facility] Procedures Procedure Date / Time Performing Clinician Source Performed ABORH, MANUAL 2021-01-15 06:40:00 Sheila Poe [facility] TYPE AND SCREEN, AUTOMATED 2021-01-15 05:55:00 Nasim Middleton [facility] BASIC METABOLIC PANEL (7) 2021-01-15 05:50:00 Tyler Do [facility] CALCIUM, IONIZED 2021-01-15 05:50:00 Ernestina [facility] PHOSPHORUS 2021-01-15 05:50:00 Tyler Do [facility] CBC W/PLT COUNT & AUTO 2021-01-15 05:50:00 Tyler Do CH I [facility] MAGNESIUM 2021-01-15 05:50:00 [facility] W/[facility]T [facility] & AUTO 2021-01-15 05:50:00 Tyler Do [facility] REPORT OF PROCEDURE - 2021-01-14 09:21:27 Mariela Esquivel [facility] REPORT OF PROCEDURE - 2021-01-14 09:17:52 Mariela Esquivel [facility] TISSUE EXAM 2021-01-14 08:29:00 Sheikh Mariela [facility] CBC W/PLT COUNT & AUTO 2021-01-14 08:07:00 [facility] BASIC METABOLIC PANEL (7) 2021-01-14 08:07:00 [facility] PROTHROMBIN TIME/INR 2021-01-14 08:07:00 [facility] CBC W/PLT COUNT & AUTO 2021-01-14 08:07:00 [facility] UPPER ENDOSCOPY,BIOPSY 2021-01-14 08:07:00 Mariela Esquivel [facility] COLONOSCOPY 2021-01-14 08:07:00 Mariela Esquivel [facility] ECG 12-LEAD 2021-01-12 06:47:48 Jose [facility] ECG 12-LEAD 2021-01-11 09:52:47 Jose [facility] ECG 12-LEAD 2021-01-11 09:52:47 Unknown, Hl7 [facility] BASIC METABOLIC PANEL (7) 2021-01-11 05:09:00 Ernestina [facility] CALCIUM, IONIZED 2021-01-11 05:09:00 Ernestina [facility] PHOSPHORUS 2021-01-11 05:09:00 Ernestina [facility] CBC W/PLT COUNT & AUTO 2021-01-11 05:09:00 Tyler Do [facility] MAGNESIUM 2021-01-11 05:09:00 Tyler Do [facility] PERIPHERAL BLOOD SMEAR - 2021-01-11 05:09:00 Mike [facility] - PATHOLOGIST REVIEW [facility] CBC W/PLT COUNT & AUTO 2021-01-11 05:09:00 Tyler Do [facility] BASIC METABOLIC PANEL (7) 2021-01-10 05:44:00 [facility]ED 2021-01-10 05:44:00 Tyler Do [facility] PHOSPHORUS 2021-01-10 05:44:00 [facility] W/PLT COUNT & AUTO 2021-01-10 05:44:00 Tyler Do [facility] MAGNESIUM 2021-01-10 05:44:00 [facility] CBC W/PLT COUNT & AUTO 2021-01-10 05:44:00 Tyler Do [facility] ECG 12-LEAD 2021-01-10 05:12:05 Jose [facility] ECG 12-LEAD 2021-01-10 05:12:05 Unknown, Hl7 [facility] ECG 12-LEAD 2021-01-09 07:11:44 Jose [facility] BASIC METABOLIC PANEL (7) 2021-01-09 06:58:00 [facility]ED 2021-01-09 06:58:00 [facility] 2021-01-09 06:58:00 [facility] CBC W/PLT COUNT & AUTO 2021-01-09 06:58:00 Tyler Do [facility] MAGNESIUM 2021-01-09 06:58:00 [facility] CBC W/PLT COUNT & AUTO 2021-01-09 06:58:00 Tyler Do [facility] XR CHEST 1 VIEW PORTABLE / 2021-01-09 05:34:[address] [facility] SARS-COV2/RT-PCR ([facility] & 2021-01-08 21:44:00 [facility] hospitalPonchoT[facility]St[facility] - REF [facility]) [facility] BASIC METABOLIC PANEL (7) 2021-01-08 05:27:00 [facility]CI[facility], [facility]ON[facility]ED 2021-01-08 05:27:00 [facility] PHOSPHORUS 2021-01-08 05:27:00 [facility] CBC W/PLT COUNT & AUTO 2021-01-08 05:27:00 Tyler Do [facility] MAGNESIUM 2021-01-08 05:27:00 [facility] W/[facility]T COUNT & AUTO 2021-01-08 05:27:00 Tyler Do [facility] CORTISOL 2021-01-07 11:57:00 Tyler Do [facility] ECG 12-LEAD 2021-01-07 07:05:52 Jose [facility] ECG 12-LEAD 2021-01-07 07:05:52 Unknown, Hl7 [facility] BASIC METABOLIC PANEL (7) 2021-01-07 04:26:00 Ernestina [facility] CALCIUM, IONIZED 2021-01-07 04:26:00 [facility] 2021-01-07 04:26:00 Tyler Do [facility] CBC W/PLT COUNT & AUTO 2021-01-07 04:26:00 Tyler Do [facility] MAGNESIUM 2021-01-07 04:26:00 Tyler Do [facility] CBC W/PLT COUNT & AUTO 2021-01-07 04:26:00 Tyler Do [facility] MAGNESIUM 2021-01-06 21:42:00 Laure [facility] POTASSIUM 2021-01-06 21:42:00 Laure [facility] CBC W/PLT COUNT & AUTO 2021-01-06 03:57:00 Poncho Alegre Bishnu [facility] BASIC METABOLIC PANEL (7) 2021-01-06 03:57:00 CodeyPoncho guerrero [facility] MAGNESIUM 2021-01-06 03:57:00 CodeyPoncho [facility] CBC W/PLT COUNT & AUTO 2021-01-06 03:57:00 Poncho Alegreammed [facility] PACEMAKER GENERATOR W/ 2021-01-05 11:33:00 Donald Lewis [facility] - ATRIAL & VENTRICULAR LEADS Medic al Center INSERTION ECG 12-LEAD 2021-01-05 05:45:[address] [facility] ECG 12-LEAD 2021-01-05 05:45:24 Unknown, Hl7 [facility] CBC W/PLT COUNT & AUTO 2021-01-05 02:47:00 [facility] BASIC METABOLIC PANEL (7) 2021-01-05 02:47:00 Sunil Reilly CH, I [facility] MAGNESIUM 2021-01-05 02:47:00 Sunil Reilly [facility] PT/APTT 2021-01-05 02:47:00 Sunil Reilly [facility] CBC W/PLT COUNT & AUTO 2021-01-05 02:47:00 [facility] MR ABDOMEN WITH & WITHOUT 2021-01-04 10:27:00 Tyler Do [facility] IV CONTRAST [facility] ECG 12-LEAD 2021-01-04 05:36:21 Jesusgabriel [facility] ECG 12-LEAD 2021-01-04 05:36:21 Unknown, Hl7 Doctor [facility] COMPREHENSIVE METABOLIC 2021-01-04 05:36:[address] [facility] CALCIUM, IONIZED 2021-01-04 05:36:00 Tyler Do [facility] PHOSPHORUS 2021-01-04 05:36:00 [facility] W/PLT COUNT & AUTO 2021-01-04 05:36:00 Tyler Do [facility] MAGNESIUM 2021-01-04 05:36:00 [facility] CBC W/PLT COUNT & AUTO 2021-01-04 05:36:00 Tyler Do [facility] CARCINOEMBRYONIC ANTIGEN 2021-01-03 14:11:00 Wily, [facility] (CEA) [facility] PSA 2021-01-03 14:11:00 Wily, [facility] CARBOHYDRATE ANTIGEN 19-9 2021-01-03 14:11:00 Wily, Ritodh [facility] (CA 19-9) [facility] ALPHA FETOPROTEIN (AFP), 2021-01-03 14:11:00 Wily [facility] TUMOR MARKER [facility] ECG 12-LEAD 2021-01-03 05:42:46 Jose [facility] ECG 12-LEAD 2021-01-03 05:42:46 Unknown, Hl7 [facility] COMPREHENSIVE METABOLIC 2021-01-03 02:54:[address] [facility] CALCIUM, IONIZED 2021-01-03 02:54:00 Tyler Do [facility] PHOSPHORUS 2021-01-03 02:54:00 [facility] CBC W/PLT COUNT & AUTO 2021-01-03 02:54:00 Tyler Do [facility] MAGNESIUM 2021-01-03 02:54:00 Tyler Do [facility] CBC W/PLT COUNT & AUTO 2021-01-03 02:54:00 Tyler Do [facility] CT ABDOMEN/PELVIS WITH IV 2021-01-02 17:44:00 [facility]ST [facility] IV CONTRAST 2021-01-02 17:44:00 [facility] COMPREHENSIVE METABOLIC 2021-01-02 09:02:[address] [facility] HEMOGLOBIN A1C 2021-01-02 09:02:00 Ernestina [facility] TSH/FREE T4 IF INDICATED 2021-01-02 09:02:00 [facility] CALCIUM, IONIZED 2021-01-02 09:02:00 Tyler Do [facility] PHOSPHORUS 2021-01-02 09:02:00 [facility] IRON, TIBC, % SAT. (WITHOUT 2021-01-02 09:02:00 Poncho [facility] kaushik [facility] FERRITIN) [facility] FERRITIN 2021-01-02 09:02:00 Poncho Alegre [facility] ECG 12-LEAD 2021-01-01 21:43:39 Mike [facility] ECG 12-LEAD 2021-01-01 21:43:39 Unknown, Hl7 [facility] PREALBUMIN 2021-01-01 11:07:00 Tyler Do [facility] 2D ECHO W/ DOPPLER 2021-01-01 09:31:24 Mireya Loving [facility] (CW/PW/COLOR) [facility] TSH/FREE T4 IF INDICATED 2021-01-01 06:59:00 Mireya Loving [facility] IRON, TIBC, % SAT. (WITHOUT 2021-01-01 06:59:00 Cruz Do [facility] VITAMIN B12 AND FOLATE 2021-01-01 06:59:00 Tyler Do [facility] VITAMIN D, 25-HYDROXY 2021-01-01 06:59:00 Tyler Do [facility] HIGH SENSITIVITY TROPONIN I 2021-01-01 03:46:00 [facility] BASIC METABOLIC PANEL (7) 2021-01-01 03:46:00 Mireya Loving [facility] HEPATIC FUNCTION PANEL 2021-01-01 03:46:00 Inder [facility] LIPID PANEL 2021-01-01 03:46:00 Inder [facility] MAGNESIUM 2021-01-01 03:46:00 [facility]T [facility] & AUTO 2021-01-01 03:46:00 [facility] DIFFERENTIAL [facility] CBC W/PLT COUNT & AUTO 2021-01-01 03:46:00 Inder [facility] DIFFERENTIAL [facility] HIGH SENSITIVITY TROPONIN I 2021-01-01 00:15:00 Inder [facility] ARRYTHMIA IMPLANT REPORT - 2020-12-31 00:00:00 Alessia [facility] CARDIAC CATH REPORT - SCAN 2020-12-31 00:00:00 Provider, Default [facility] REPORT OF PROCEDURE - 2020-12-31 00:00:00 Provider, Default [facility] - ENDOSCOPY SCAN Scanning [facility] Plan of Care Planned Activity Planned Date Details Comments Source Future Scheduled 2031-01-[address] [facility] - Test 00:00:00 [facility] colon (procedure) [code = [id number]] Future Scheduled 2020-12-30 INFLUENZA VACCINE (#1) [facility] Test 00:00:00 [code = INFLUENZA Medical Ce nter VACCINE (#1)] Future Scheduled 2020-05-[address] [facility] - Test 00:00:00 (12+) [code = Medical Center DEPRESSION SCREENING (12+)] Future Scheduled 2020-05-01 FALLS RISK SCREENING [facility] - Test 00:00:00 [code = FALLS RISK Medical C enter SCREENING] Future Scheduled 2015-12-26 PNEUMOCOCCAL 65+ YRS [facility] - Test 00:00:00 (1 of 1 - Medical Center [id number] PCV13) [code = PNEUMOCOCCAL 65+ YRS (1 of 1 - [id number] PCV13)] Future Scheduled 2000 SHINGLES VACCINES ([address] [facility] - Test 00:00:00 of 2) [code = SHINGLES Medic al Center VACCINES (1 of 2)] Future Scheduled 1969 DTAP/TDAP/TD VACCINES [facility] - Test 00:00:00 (1 - Tdap) [code = Medical C enter DTAP/TDAP/TD VACCINES (1 - Tdap)] Future Scheduled 1968 HEPATITIS C SCREENING [facility] - Test 00:00:00 [code = HEPATITIS C Medical Center SCREENING] Future Scheduled 1962 COVID-19 VACCINE (1) [facility] - Test 00:00:00 [code = COVID-[address] VACCINE (1)] Encounters Start End Encounter Admission Attending Care Care Encounter Source Date/Time Date/Time Type Type Clinicians Facility Department ID 2021-04-30 Outpatient [facility] [id number] [place] 01:04:18 [facility] 2021-04-01 Outpatient [facility] [id number] [place] 12:32:15 Health 2021-03-01 Outpatient [facility] [id number] [place] 08:01:28 Health 2021-02-22 Outpatient JADE [facility] [id number] [place] 15:19:54 [facility] 2021-02-07 Inpatient ER LINH OJEDA Cardiology [id number] [facility] 11:08:57 REGINA 2021-02-04 Outpatient READMISSIO ENCCLR ENCCLR [id number] ENCCLR 12:46:29 N 2021-04-01 2021-04-01 Office SONU Sutton [id number] [place] 12:15:00 14:16:16 Visit Nabor YEPEZ [id number] [facility] [id number] 2020-12-31 2021-01-15 Hospital ER Regina Ojeda Lacy [facility] [id number] 21:44:00 18:24:00 Encounter Tyler Do [facility] 2021-01-14 2021-01-14 Anesthesia Ricky Mead [facility] [id number] 08:17:00 09:16:00 Event Cora Gupta [facility] 2021-01-14 2021-01-14 Surgery , [facility] [id number] 08:00:00 09:00:00 Mariela [facility] 2021-01-05 2021-01-05 Surgery Joshua, [facility] [id number] 16:21:00 19:21:[address] [facility] 2021-01-02 2021-01-02 Travel [facility] [id number] [facility] 00[facility]:00 [facility] 2021-01-01 2021-01-01 Outpatient [facility] [id number] [facility] 00:00:00 23:59:00 Ese 2021-01-01 2021-01-01 Orders [facility] [id number] 00:00:00 00:00:[address] [facility] Results Test Description Test Time Test Comments Results Result Comments Source Tissue Exam 2021-01-20 11:01:56 Test Item Value Reference Range Interpretation Comme nts Case Report (test code = 104) Surgical Pathology Report Case: [id number] Authorizing Provider: Mariela Esquivel MD Collected: 01/14/2021 08:29 AM Ordering Location: [address] Received: 01/14/2021 11:35 AM Service Pathologist: Hue Izaguirre MD Specimens: A) - Duodenum, duodenum bx B) - Biopsy, Gastric, random gastric bx C) - Gastric, gastric lesion bx DIAGNOSIS (test code = 3220) i9ogkBEcPVUcj6gyVKRbeMNmGyHcShSpJwJuWo pc dWMxIHtccnRmMVxlcGljOTYwMVxhbnNpXHNwbHRw J1AafdgxREzrYF0jDQ3csPhjzQVigDLnYNZhAsDx w6vwc152zWObs2heSLFFueigeHt4kDhfO53es5J0 YgmiO3utVCUuWJfyvnYzjfO5JPKhwQQhBWllkqJj ORanvuShfyRlJzr4QBA5iRkgMIPaeimfTbJ6RGgi RJGkyzedOIw8XFwlGIHtbRL1UXQsdMAiU8UxAPYc ZJ6pzbh4KHP1IAhaZAUoIrG1BFJotIRyQVHqlYvj SFdjh856IRQ4OsNsYHTksoGfcYhvjW7qGfUiOSkh TQHnR8IkEIXzYAVKN0LDEyPQGKBYGX2QM2l4UDMr ugJkJQKwSIWONA6RMP7KURAYXONCA6YmJ0wEJITN GHNEXYUgPDBBQOXGNQWSNeOTBWFZHVMYP8LRRTok JSJPF8OPTySYZBJAGLkBWHOkPZFPOEkLNFUZFYFD SVLslujuBuVpfHCcHORvZDmnEqIfE7RVMCONKMay D5HcKFMpZ8UjTPFQX8PXHXItBALRWCHsCwC9JLBe tecwJgRiQLEiOUqwLuBhGDneNoMkKSjBB0CUZDUe C6dABoAKFnJDSwTbVL1RGqJOHKZWENFZEJIiVuPn OZBUX2MLMVuLMRcsYq9QQE5FYVHfDHtUELORVSUV VUReRO6LMKBPDQDSCYIJRGZKBN8PQWgwKmEfVbyw DIQyF3BdVUScPYPzC9ZcPT2wA9HwCXQcG0VkOT0G O1MNAFLXGIAQWdVIIAvWA98RRDJLVVTiLLkHR3SX SH3DK7VQVDAPZvIZULYSUPWNFPwJWOKBJNIWRIIV AQPGMnkaSsYhYvivZWLuQBUoFELoT7LeTC4yL6Xa ICBORUdBVElWRVxjZjIgIEZPUlxjZjAgIFxjZjIg PX4AQQIJIU2ZWOJNNVSNJQuIY4zMKGYjZVSkFGOw QnLwUXErSWNANbcpQhPtHFJCCPFQTHSIEKRgW4Kp WJZQGpypNmPhNW2WIMhJLtKIE9agN1EhMQ7xzZQf TMLmpuZIZaRKGTESIiaIMCsEO7sNAgSgUUFJQ4WQ RXfcVAMbUEQiCW5sC8AAMGZZNgZWNnEOSY4hABzM SLJREHMJA7HyE0uJOFKPMVDMNO6IFYGNT6HISZuQ TVsgVMHPY4WFHRQJENDMZALJLSMNVY7YWYClYJRt ftXoYXGhW5EiST1lU0SwMNYCQWyJKJbHSVhiNoZz TJUVIixfKjSiJYfoXuAkDB0OZXAVWE0ENYVXLLEH AOkWR8kLJFHyXGOnVUWkOiMmPTSpSJVBByutKbRw ULVFMEGXBGYWQWBcH8SpNIGMHinkVsRaGP0KRIjP SiFMG8ojJ6CwSF2dzTNrkZavzaGzEUrbp4BpJFgl HSImDG8naBzaIFMyHY3jEOMgE3oayO2lkyj9AoVr WELrTeF5RZDiqvP7Qdr3JEPzRZvfv9req3HsVSYm VIb5rKcaGlFeYQGya5cfcuFjDdDtHJTfFMNdVTYr gAYwI820e6kvy4hxueUrdPI5PYPsIOC9ZZlpudHa upM4KBnpcGOiXcY2USodikWzGVtajsBxtzKuNvt6 HJSbH106YMP6kWipd8cnINA2OZKsNANrZaZmAa1f sTJcU863HMYxPLDPAUGwhUr7RCNeykNzbrOdoIGU b470L623k9xvLEXcdnSuuZkXulcrw2jhX878WVNe rLCxczWiUnEcNXFuzUNivZA2IEKrHT9kekptLPob QBuyBONvvcI2VWLhjCJiC2VeJBVhWQ5hojyrWSK7 TLohLWDoFKO5HgSmLVYgw7Zgatp5LqRfbc5wvz59 HSF5y2EeoMuaMUT5SJV1KvEcOt2qfNYuNIKvLK3k MnFrqVLiTXDcgx80dCwyOLmeVZY5UVLqbmNgt5Cx q1wvYqUqqlZpV7dwV7QcWHLdTXTkBTKfHfVqlaTu x7Pbe8JbwFUvyGn1u7rfDEVkLVVlmXokx3zzKYE8 ZQFytRBeV6ewsO4eZWEhPS3goumaw7cnOTmmNSkh XWXekPC5xzJ9IWJcjBIpQ5XebD0nTUTdYIlcINDj thl6QkBsFm8xvLQvlQzfTGycComrZCtdWUTlcqJg bnRccGduZGVjXHBsYWluXHBsYWluXGYwXGZzMjRc cWxcbGFuZzEwMzNcaGljaFxmMVxkYmNoXGYxXGxv T1wzVhGaYqKhLsy8FBUchJApXLGxAjc6KVRqfJMi NVBArTkbmP2qSMDeiGwjvI1gsRN7UWEbfwUloWCO mE1fPHQPyB7wDfQ0TACdHek6QKT0ZTStrJEyhG4= COMMENT (test code = 3359) x9vtgXLmMOXbbFH5EcAoJLHmv1hhn4ZggVSatYKe OOxqzLGkfeChhe18fHP1zS44AM8cBXOqBdD2UMBw euZ2Etf0ADGaAJAgvAKpX394a0xnl3pbzrDrnHS2 uMnuRMMniousJcC3GPsuCNKcjplrAAd7GKrrQLEi dRG5YBMhaGSdA6OwOLDaOO8eaed7OXM3WOewGBBn SbK4VSVswYMrNTAivJzkHIgvp153RHK2UyYhCUGv yjRezYctbZ7lCtZpOBTQqpOkc3WqxGwdJGLceN7u dCByZXZpZXdlZFxwYXJccGFyZFxwYXJ9 CPT Code(s) (test code = 0818) d8kgwUNrDLZgiLM8KeZjAYAbo1hue7SqyRZa cGFy KOlpvARuqrWyof12uIH4sI89PK6yZXJuWcP1FIVh ghR3Ycc0GJAyHSHyrORmN033u2yqq9prkpCggJY9 rQraUWOkdyhfPsW7QOeaBEDexjjrFWm8RBjiRNJn sZG3YVSedIXoS9KoBNMnPI8uwum5NZG1WMixRTNy XbR6KJKfpNGbSJYrjJxmECbvb414DVZ8DtVwOFLg vmAofPfigC7sTnHmKIY8XGGtVOXBP2wnKWAsTDwu MTJYMlxwYXJ9 CLINICAL HISTORY (test code = 3356) s6adgEXvBUHdxYX1GcNsFSSvz0fkt7M sdHBncGFy TIedvIMciiKzqv26lQO4zZ81ZP5bIFHbCnF6CFOy aeJ1Yzt4WPNjJIBefJSlQ959i3qxr9xrcpTbtHX9 LIMjNZAwR7LlBH4nYRIfoFZiS87izZIaSNK2DXJd XGPedCFnUQAqVXV9HKRnuZWsL8ouRJNqUJ4cpyxe NQsqEBmpWIHstVR9WSJxtHNmD0TjYFNqDBvfBCEm ziq8WrMaYj2kiKEcaAkuNSypEZBaASgbZJshkWHa iEeqBAyufIZfsueyumJkKQXoQOSXty6dBXObGesd hBRlU8jtWI1zkKxrRZApqm6= SPECIMEN SOURCE (test code = 3377) i4bmcZPbZJTmpFB3ZsYnXKBxz3vse9Zs dHBncGFy NWlitEBobuLocw31aDQ3nO61HG5lWNIhCgI4WMZo ihI2Xqb4XHWpNZFdvOPnP919d2xbq6qpksJjfLG1 mNnnRXCffxmhTlL8MZaePMWofouxFPl1CCylXQOs vTS7YYLzdHKxO1ObYMXlTL0wrgz2VNX9MXhgXUNk AmY4WYQflTEfJULmgClrCLhug434VOE6EiAnWZRw ooJrpBqwbS7wUaOaWNLXHqFcOXPiHHBdmL6ytPup LGEJMqYtL3JslQTkX0sjjC7mYFNoSLXRWAR3awxg XHBhcn0= GROSS DESCRIPTION (test code = 3366) r1fppZZkOHUorUGeNrPrOMBgEFEdb8 lcZGVmbGFu [file] N8GyuUavpleuMPUpKPnEGHiYS0MBTQacFGY7 MICROSCOPIC DESCRIPTION (test code = w2nbdKUaPGRpoES7FfKxHBVug6dgl4 BsdHBncGFy 3371) RHhwvXJkkpTjvm30wPG6mQ17GQ3vKFBhTmC3ETGr mwA5Hrp5QNIqVHBlcITdX679g5fxy1qctzKnwMC4 bYtuSRUzljhcBjP9PDdjABXpitfhLQq2THqqPSFu hFP9MBTjgAAuU5DyEHTxTB8slhl4DCA7MReeVBRk DgN2FBEkfBBqKQIznUqsRRxch291OTU2RrYmNBJh ptYgaYffmY8aSiHuEQAWLRHQC0MJETUwAPVmfn2= SPECIAL STUDIES (test code = 3376) g3qmeDCsDCHho5qpLRNqyDNnVmPcOvNp ZnRuYmpc lKPrCOlflyJlZWaap6GjA5JoPmJqZOagtfFnBSDz QezkidsfQIKbCRB0wrTkZQOnYZluCIBaNMslNz0e yGNtnJezKxJbLNPmh8ucblHWpmniqNv8y4zgKCBt SnD8dMMjQSpnZ4ppomOpaQTjQ9XtcCXnuGw2g3yj KwJdDjQ5dNGpMXcqG8ixcoDskNLdZXVfCXp5hW11 UEBxrD1teKQgXHspkvGhTeI4DHrvTUDkIkU9NYIi qPIsILEzQ0abAMMzYTokSWTaCHomvBHqPFX6bUsd o8J9bCUrhJGfpTkkAlJiHhLyJgABl4MoSDe6xZft W3JtOACkZzY2cAMuNPXjWTplQRGtPUOcleE7xUjc jwKxf71lpVLsIZPcYPOiBnQtgHhsPAFwBRVMi0Tk mRmnMKJ8dLp6bPgmLiyyMPU5Thp9OX1zut60rbg7 iDjcNHTvlblcWoL4YJsySNTamzlgWDk4CTzbZHKb yRU6FNVzgXYqQ4XuGMQuFN1pgdr9TFC8WWyxURFr WnP2FJUqmVBsOPEbbXicKIavk414BQK6DwYbNI4l U8Dzx8I6mL2jcICrVKUahTHyBpObJIGaox8qcJYg YQzaz7AaVES0ahG6xTAqwXSjDZQtFO97Joyzg0Px Iuoji1XwD50skSR9SFhwl2rrVY1aMsF9oePcSRtp w6wzkC5mZpS1EVoxHO1fXR3wJYRagG8ozfogZDWa NwZyiikiUHHmbNtcxwZwZb1axGyzWZP5GMcaR6jl jN0wVoF3QUzjU3hjuN3hAAi9VSasgUC9UXKynO0h EQ1qxkaqq2weLZqhDJqxYEVsrdQ2mfL0IVVvfEQb M5JeqT3dPMLhUR0pouhjw0lyULX7IDwqTTDxBAN8 HdUkSUOlc6Lexru0RyCtl1FreAPgJXosH64oj171 TAOvevAcE3selWIbwefueCGcaparUIgygcD7GDIa XHBsYWluXGYxXGZzMjJcbGFuZzEwMzNcaGljaFxm HDrsOuTiOPYpKPjqV1vyMlVkH6GcLRRkXvUhMMfe KKgzgLXdhABdpWT0sR4xKP6rYTPfhHCaH1UcHBXk ykMyeXDkRLR8zNLgbVRfFT7tLAimqDXkb8tls4Wq A7gslYvxhBX6ND6vQBJzAMPvJGykq5IpeG3gFdch wTNxgyvrUWwllkPtNKmpethmNZKtUNrhT9ehJmFu RCBiqDjlSKcsi9EiFVAlONSrLnxkckRpJYc9hbXl MPLtzhsbVRJsxKpqyB5sZbKxEgOjQzljTH2fVVCm D1bvhIIxJXIdQYQkR2edOmCxpW8ewFobLFxxEcYy PrVxJrRXr896cx9dRGNheVSgamHVhCOxpV5mQPhu VIrbJQcmsEUkGSurb3edFXQyv1s9cOFwKQSeedOg r8kuIObybkYvCPPofMZbrZHyRPEsw86cEDifgDly hMocNBJze0FblIzaw7NeNaUbJKmqy1YsK78gdIRq iNJybQgpPOIqkvBcSJJlm58yr3zbXXOvGbW6aJWj yVG1nNGxtGFgw7PtyTlhGFOlv9nhKHYyjn2tqvqd pOTtn8QenH9ryzqmISxtfFKiwyWqAPCxj5l4wKIl KLXfVRSbRLboeYz8UXDst173eo6cimO6nBVzHMZ0 YWlsYWJsZSBhcmUgZXZhbHVhdGVkXHBsYWluXGYx XGZzMjJcbGFuZzEwMzNcaGljaFxmMVxkYmNoXGYx KZkgN0ipTfIxE5NnMQLvDxEmxQTpD0jraMNiFOBz YWluXGYxXGZzMjJcbGFuZzEwMzNcaGljaFxmMVxk NvLvEPUzIOiwD1xuArYrB3UaECFnFgPkHHmvmCDr inadWXntedYzUIbwoachIEIhEKbhG2pfPuRbJERh tZbpLHneh2WvIFRsZWPjWdwrldLvHJb7uuAvTTAc gcntkZSzgxihQNpfkkKvYLpxxbdkUQZrXIhkF8cb [file] FqiuGRS4lX== [id number] 11:01:56Surgical Pathology Report Case: [id number] Authorizing Provider: Mariela Esquivel MD Collected: 01/14/2021 08:29 AM Ordering Location: [address] Received: 01/14/2021 11:35 AM Service Pathologist: Hue Izaguirre MD Specimens: A) - Duodenum, duodenum bx B) -Biopsy, Gastric, random gastric bx C) - Gastric, gastric lesion bx A. DUODENUM, BIOPSY:- DUODENAL MUCOSA WITH PEPTIC DUODENITIS WITH FOCALLY PRESERVED VILLOUS ARCHITECTUREB. STOMACH, BIOPSY: - GASTRIC OXYNTIC AND ANTRAL- TYPE MUCOSA WITH FOVEOLAR HYPERPLASIA AND REACTIVE CHANGE. - NEGATIVE FOR HELICOBACTER PYLORI ORGANISMS BY WARTHIN STARRY STAIN. - NEGATIVE FOR INTESTINAL METAPLASIA, OR DYSPLASIA OR MALIGNANCY.C. GASTRIC LESION , BIOPSY - GASTRIC ANTRUM TYPE MUCOSA WITH SITE OF ULCER WITH MARKED REACTIVE CHANGES - NEGATIVE FOR INTESTINAL METAPLASIA, OR DYSPLASIA OR MALIGNANCY. Signing Pathologist Direct Phone Line: [phone] signed by Hue Izaguirre MD on 01/20/2021 at 11:01 AMEndoscopic report [id number] deficiency anemiaA. DuodenumB. GastricC. GastricA. Received in formalin labeled the patient's name, accession number and "duodenum" are 4 beltrán soft tissue fragments measuring up to 0.2 cm in greatest dimension which are filtered and submitted in toto in A1.B. Received in formalin labeled the patient's name, accession number and "gastric biopsy" are 2 beltrán soft tissue fragments measuring up to 0.2 cm in greatest dimension which are filtered and submitted in toto in B1.C. Received in formalin labeled the patient's name,accession number and "gastric lesion" are 2 beltrán soft tissue fragments measuring up to 0.3 cm in greatest dimension which are filtered and submitted in toto in C1.CRISSY Vo HT (ASCP)PERFORMED.The interpretation of this case included the use of immunohistochemistry or special stains.Control Slides Examined: In-house known positive controls were evaluated along with the test tissue. These control slides run alongside of the patients sample show appropriate staining. Internal positive and negative controls when available are evaluated Immunohistochemistry technical testing was performed at [facility], Pathology Laboratory where it was developed and its performance characteristics were determined. It has not been cleared or approved by the U.S. Food and Drug Administration. The FDA has determined that such clearance or approval is not necessary. The test is used forclinical purposes. It should not be regarded as investigational or for research. This laboratory is certified under the Clinical Laboratory Improvement Amendments of 1988 (CLIA-88) as qualified to perform high complexity clinical laboratory testing.[id number] 07:15:27 Test Item Value Reference Range Interpretation Comments Phosphorus (test code = 3.6 mg/dL 2.3-4.7 2777-1) TOSHIA (test code = TOSHIA) Gel Coat Sprayer ID - ZAC John Lab Interpretation (test Normal code = 56304-1) [facility] Test Item Value Reference Range Interpretation Comments PHOSPHORUS (BEAKER) (test code = 3.6 mg/dL 2.3-4.7 604) Gel Coat Sprayer ID - ZAC [id number] 07:15:26 Test Item Value Reference Range Interpretation Comments Magnesium (test code = 2.1 mg/dL 1.6-2.6 15365-1) TOSHIA (test code = TOSHIA) Gel Coat Sprayer ID - ZAC John Lab Interpretation (test Normal code = 27083-1) [facility] 07:15:26 Test Item Value Reference Range Interpretation Comments MAGNESIUM (BEAKER) (test code = 2.1 mg/dL 1.6-2.6 627) Gel Coat Sprayer ID - ZAC GBasic Metabolic [id number] 07:15:25 Test Item Value Reference Range Interpretation Comments Sodium (test code = 140 meq/L 801-032 1656-2) Potassium (test 4.2 meq/L 3.5-5.1 code = 2823-3) Chloride (test code 106 meq/L 98-107 = 2075-0) CO2 (test code = 27 meq/L 22-29 2027-9) BUN (test code = 18 mg/dL 7- 3094-0) Creatinine (test 0.83 mg/dL 0.57-1.25 code = 2160-0) Glucose (test code 88 mg/dL 70-105 = 2345-7) Calcium (test code 9.1 mg/dL 8.4-10.2 = 34950-3) EGFR (test code = 92 mL/min/1.73 [place] [address]-9) NOT ACCURATE CREATININE CLEARANCE IN PREDICTING GLOMERULAR FILTRATION RATE . ESTIMATED GFR I S NOT APPLICABLE FOR DIALYSIS PATIEN TS. TOSHIA (test code = Gel Coat Sprayer ID - TOSHIA) ZAC [facility] [id number] 07:15:25 Test Item Value Reference Range Interpretation Comments SODIUM (BEAKER) 140 meq/L 136-145 (test code = 381) POTASSIUM (BEAKER) 4.2 meq/L 3.5-5.1 (test code = 379) CHLORIDE (BEAKER) 106 meq/L 98-107 (test code = 382) CO2 (BEAKER) (test 27 meq/L 22-29 code = 355) BLOOD UREA NITROGEN 18 mg/dL 7-21 (BEAKER) (test code = 354) CREATININE (BEAKER) 0.83 mg/dL 0.57-1.25 (test code = 358) GLUCOSE RANDOM 88 mg/dL 70-105 (BEAKER) (test code = 652) CALCIUM (BEAKER) 9.1 mg/dL 8.4-10.2 (test code = 697) EGFR (BEAKER) (test 92 mL/min/1.73 ESTIMA CHRYSTAL GFR IS code = 1092) sq m NOT ACCURATE CREATININE CLEARANCE IN PREDICTING GLOMERULAR FILTRATION RATE . ESTIMATED GFR I S NOT APPLICABLE FOR DIALYSIS PATIEN TS. Gel Coat Sprayer ID - ZAC CHAMBERLAIN, [id number] 07:07:00 Test Item Value Reference Range Interpretation Comments ABO Grouping (test code = 2588) A Rh Factor (test code = 2589) NEG [facility] screen, [id number] 06:42:00 Test Item Value Reference Range Interpretation Comments ABO/RH AUTOMATED (BEAKER) (test A NEGATIVE code = 2260) Ab Scrn (test code = 890-4) NEGATIVE [facility] count + automated [id number] 06:31:53 Test Item Value Reference Range Interpretation Comments WBC (test code = 6690-2) 11.0 See_Comment H [A utomated message] The system [employer] generated this result transmitted ref erence range: 3.5 - 10 .5 K/L. The refe rence range was not u sed to interpret this result as normal/abnor mal. RBC (test code = 789-8) 3.07 See_Comment L [Au tomated message] The system [employer] generated this result transmitted ref erence range: 4.63 - 6 .08 M/L. The refe rence range was not u sed to interpret this result as normal/abnor mal. MCHC (test code = 786-4) 32.5 See_Comment L [A utomated message] The system [employer] generated this result transmitted ref erence range: 32.3 - 3 6.5 GM/DL. The refe rence range was not u sed to interpret this result as normal/abnor mal. Hematocrit (test code = 28.0 % 40.1-51.0 L 4544-3) MCV (test code = 787-2) 91.2 fL 79.0-92.2 MCH (test code = 785-6) 29.6 pg 25.7-32.2 RDW (test code = 788-0) 14.0 % 11.6-14.4 Platelets (test code = 156 See_Comment [Aut omated message] 777-3) The system [employer] generated this result transmitted ref erence range: 150 - 45 0 K/CU MM. The referen ce range was not u sed to interpret this result as normal/abnor mal. MPV (test code = 9.4 fL 9.4-12.4 74037-3) nRBC (test code = 413) 0 See_Comment [Aut omated message] The system [employer] generated this result transmitted ref erence range: 0 - 0 /1 00 WBC. The refere nce range was not u sed to interpret this result as normal/abnor mal. % Neutros (test code = 82 % 429) % Lymphs (test code = 10 % 430) % Monos (test code = 7 % 431) % Eos (test code = 432) 0 % % Baso (test code = 437) 0 % # Neutros (test code = 9.04 See_Comment H [Aut omated message] 670) The system [employer] generated this result transmitted ref erence range: 1.78 - 5 .38 K/L. The refe rence range was not u sed to interpret this result as normal/abnor mal. # Lymphs (test code = 1.04 See_Comment L [Auto mated message] 414) The system [employer] generated this result transmitted ref erence range: 1.32 - 3 .57 K/L. The refe rence range was not u sed to interpret this result as normal/abnor mal. # Monos (test code = 0.77 See_Comment [Autom ated message] 415) The system [employer] generated this result transmitted ref erence range: 0.30 - 0 .82 K/L. The refe rence range was not u sed to interpret this result as normal/abnor mal. # Eos (test code = 416) 0.04 See_Comment [Au tomated message] The system [employer] generated this result transmitted ref erence range: 0.04 - 0 .54 K/L. The refe rence range was not u sed to interpret this result as normal/abnor mal. # Baso (test code = 417) 0.03 See_Comment [A utomated message] The system [employer] generated this result transmitted ref erence range: 0.01 - 0 .08 K/L. The refe rence range was not u sed to interpret this result as normal/abnor mal. Immature 1 % 0-1 Granulocytes-Relative (test code = 2801) Lab Interpretation (test Abnormal code = 70158-9) [facility] W/PLT COUNT & AUTO [id number] 06:31:53 Test Item Value Reference Range Interpretation Comments WHITE BLOOD CELL COUNT (BEAKER) 11.0 K/ L 3.5-10.5 H (test code = 775) RED BLOOD CELL COUNT (BEAKER) 3.07 M/ L 4.63-6.08 L (test code = 761) HEMOGLOBIN (BEAKER) (test code = 9.1 GM/DL 13.7-17.5 L 410) HEMATOCRIT (BEAKER) (test code = 28.0 % 40.1-51.0 L 411) MEAN CORPUSCULAR VOLUME (BEAKER) 91.2 fL 79.0-92.2 (test code = 753) MEAN CORPUSCULAR HEMOGLOBIN 29.6 pg 25.7-32.2 (BEAKER) (test code = 751) MEAN CORPUSCULAR HEMOGLOBIN CONC 32.5 GM/DL 32.3-36.5 (BEAKER) (test code = 752) RED CELL DISTRIBUTION WIDTH 14.0 % 11.6-14.4 (BEAKER) (test code = 412) PLATELET COUNT (BEAKER) (test 156 K/CU MM 150-450 code = 756) MEAN PLATELET VOLUME (BEAKER) 9.4 fL 9.4-12.4 (test code = 754) NUCLEATED RED BLOOD CELLS 0 /100 WBC 0-0 (BEAKER) (test code = 413) NEUTROPHILS RELATIVE PERCENT 82 % (BEAKER) (test code = 429) LYMPHOCYTES RELATIVE PERCENT 10 % (BEAKER) (test code = 430) MONOCYTES RELATIVE PERCENT 7 % (BEAKER) (test code = 431) EOSINOPHILS RELATIVE PERCENT 0 % (BEAKER) (test code = 432) BASOPHILS RELATIVE PERCENT 0 % (BEAKER) (test code = 437) NEUTROPHILS ABSOLUTE COUNT 9.04 K/ L 1.78-5.38 H (BEAKER) (test code = 670) LYMPHOCYTES ABSOLUTE COUNT 1.04 K/ L 1.32-3.57 L (BEAKER) (test code = 414) MONOCYTES ABSOLUTE COUNT (BEAKER) 0.77 K/ L 0.30-0.82 (test code = 415) EOSINOPHILS ABSOLUTE COUNT 0.04 K/ L 0.04-0.54 (BEAKER) (test code = 416) BASOPHILS ABSOLUTE COUNT (BEAKER) 0.03 K/ L 0.01-0.08 (test code = 417) IMMATURE GRANULOCYTES-RELATIVE 1 % 0-1 PERCENT (BEAKER) (test code = 2801) Calcium, [id number] 06:13:10 Test Item Value Reference Range Interpretation Comments Calcium, Ion (test code = 1993-) 1.22 mmol/L 1.12-1.27 pH, Blood (test code = 67382-7) 7.43 [facility] [id number] 06:13:10 Test Item Value Reference Range Interpretation Comments CALCIUM IONIZED (BEAKER) (test 1.22 mmol/L 1.12-1.27 code = 698) PH, BLOOD (BEAKER) (test code = 7.43 1810) BASIC METABOLIC [id number] 08:44:41 Test Item Value Reference Range Interpretation Comments SODIUM (BEAKER) 138 meq/L 136-145 (test code = 381) POTASSIUM (BEAKER) 4.0 meq/L 3.5-5.1 (test code = 379) CHLORIDE (BEAKER) 104 meq/L 98-107 (test code = 382) CO2 (BEAKER) (test 27 meq/L 22-29 code = 355) BLOOD UREA NITROGEN 13 mg/dL 7-21 (BEAKER) (test code = 354) CREATININE (BEAKER) 0.76 mg/dL 0.57-1.25 (test code = 358) GLUCOSE RANDOM 85 mg/dL 70-105 (BEAKER) (test code = 652) CALCIUM (BEAKER) 9.1 mg/dL 8.4-10.2 (test code = 697) EGFR (BEAKER) (test 101 mL/min/1.73 ESTIM ATED GFR IS code = 1092) sq m NOT ACCURATE CREATININE CLEARANCE IN PREDICTING GLOMERULAR FILTRATION RATE . ESTIMATED GFR I S NOT APPLICABLE FOR DIALYSIS PATISANGEETHA TS. Gel Coat Sprayer ID - BSProthrombin time/[id number] 08:31:17 Test Item Value Reference Interpretation Comments Range Protime (test code = 13.9 See_Comment [Autom ated 5902-2) message] The system which generated this result transmitted reference range : 11.9 - 14.2 seconds. The reference range was not used to interpret this result as normal/abnormal . INR (test code = 1.09 See_Comment [Automated 9751-6) message] The system which generated this result transmitted reference range : <=5.90. The reference range was not used to interpret this result as normal/abnormal . TOSHIA (test code = RECOMMENDED TOSHIA) COUMADIN/WARFARIN INR THERAPY RANGESSTANDARD DOSE: 2.0 - 3.0 Includes: PROPHYLAXIS for venous thrombosis, systemic embolization; TREATMENT for venous thrombosis and/or pulmonary embolus.HIGH RISK: Target INR is 2.5-3.5 for patients with mechanical heart valves. Lab Interpretation Normal (test code = 08759-8) [facility]/[id number] 08:31:17 Test Item Value Reference Range Interpretation Comments PROTIME (BEAKER) 13.9 seconds 11.9-14.2 (test code = 759) INR (BEAKER) (test 1.09 See_Comment [Automat ed message] code = 370) The system [employer] generated this result transmitted ref erence range: <=5.90. The reference range was not used to int erpret this result as normal/abnormal . RECOMMENDED COUMADIN/WARFARIN INR THERAPY RANGESSTANDARD DOSE: 2.0 - 3.0 Includes: PROPHYLAXIS forvenous thrombosis, systemic embolization; TREATMENT for venous thrombosis and/or pulmonary embolus.HIGH RISK: Target INR is 2.5-3.5 for patients with mechanical heart valves.CBC W/PLT COUNT & AUTO DIFFERENTIAL 2021-01-14 08:24:36 Test Item Value Reference Range Interpretation Comments WHITE BLOOD CELL COUNT (BEAKER) 3.3 K/ L 3.5-10.5 L (test code = 775) RED BLOOD CELL COUNT (BEAKER) 3.10 M/ L 4.63-6.08 L (test code = 761) HEMOGLOBIN (BEAKER) (test code = 8.9 GM/DL 13.7-17.5 L 410) HEMATOCRIT (BEAKER) (test code = 27.9 % 40.1-51.0 L 411) MEAN CORPUSCULAR VOLUME (BEAKER) 90.0 fL 79.0-92.2 (test code = 753) MEAN CORPUSCULAR HEMOGLOBIN 28.7 pg 25.7-32.2 (BEAKER) (test code = 751) MEAN CORPUSCULAR HEMOGLOBIN CONC 31.9 GM/DL 32.3-36.5 L (BEAKER) (test code = 752) RED CELL DISTRIBUTION WIDTH 13.8 % 11.6-14.4 (BEAKER) (test code = 412) PLATELET COUNT (BEAKER) (test 156 K/CU MM 150-450 code = 756) MEAN PLATELET VOLUME (BEAKER) 9.3 fL 9.4-12.4 L (test code = 754) NUCLEATED RED BLOOD CELLS 0 /100 WBC 0-0 (BEAKER) (test code = 413) NEUTROPHILS RELATIVE PERCENT 60 % (BEAKER) (test code = 429) LYMPHOCYTES RELATIVE PERCENT 26 % (BEAKER) (test code = 430) MONOCYTES RELATIVE PERCENT 10 % (BEAKER) (test code = 431) EOSINOPHILS RELATIVE PERCENT 3 % (BEAKER) (test code = 432) BASOPHILS RELATIVE PERCENT 0 % (BEAKER) (test code = 437) NEUTROPHILS ABSOLUTE COUNT 1.98 K/ L 1.78-5.38 (BEAKER) (test code = 670) LYMPHOCYTES ABSOLUTE COUNT 0.87 K/ L 1.32-3.57 L (BEAKER) (test code = 414) MONOCYTES ABSOLUTE COUNT (BEAKER) 0.33 K/ L 0.30-0.82 (test code = 415) EOSINOPHILS ABSOLUTE COUNT 0.10 K/ L 0.04-0.54 (BEAKER) (test code = 416) BASOPHILS ABSOLUTE COUNT (BEAKER) 0.01 K/ L 0.01-0.08 (test code = 417) IMMATURE GRANULOCYTES-RELATIVE 1 % 0-1 PERCENT (BEAKER) (test code = 2801) Peripheral Blood Smear - Path [id number] 15:02:56 Test Item Value Reference Range Interpretation Comments Pathologist Review Normocytic normochromic (test code = 2640) anemia. WBCs include predominantly mature granulocytes. No blasts seen. Platelets are adequate with unremarkable morphologic features, no clumping/satellitism seen. Pathologist: (test Paty Peña code = 2849) Terry Nuñez [facility] - PATHOLOGIST REVIEW 2021-01-11 15:02:56 Test Item Value Reference Range Interpretation Comments PERIPHERAL SMR REVIEW Normocytic normochromic (BEAKER) (test code = anemia. WBCs include 2640) predominantly mature granulocytes. No blasts seen. Platelets are adequate with unremarkable morphologic features, no clumping/satellitism seen. [id number] Paty Peña (BEAKER) (test code = Terry Nuñez 6359) [id number] 06:14:56 Test Item Value Reference Range Interpretation Comments PHOSPHORUS (BEAKER) (test code = 3.3 mg/dL 2.3-4.7 604) Gel Coat Sprayer ID - PILINK [id number] 06:14:55 Test Item Value Reference Range Interpretation Comments MAGNESIUM (BEAKER) (test code = 2.4 mg/dL 1.6-2.6 627) Gel Coat Sprayer ID - PIAYA LBASIC METABOLIC [id number] 06:14:54 Test Item Value Reference Range Interpretation Comments SODIUM (BEAKER) 136 meq/L 136-145 (test code = 381) POTASSIUM (BEAKER) 4.2 meq/L 3.5-5.1 (test code = 379) CHLORIDE (BEAKER) 103 meq/L 98-107 (test code = 382) CO2 (BEAKER) (test 26 meq/L 22-29 code = 355) BLOOD UREA NITROGEN 22 mg/dL 7-21 H (BEAKER) (test code = 354) CREATININE (BEAKER) 0.77 mg/dL 0.57-1.25 (test code = 358) GLUCOSE RANDOM 87 mg/dL 70-105 (BEAKER) (test code = 652) CALCIUM (BEAKER) 9.1 mg/dL 8.4-10.2 (test code = 697) EGFR (BEAKER) (test 100 mL/min/1.73 ESTIM ATED GFR IS code = 1092) sq m NOT ACCURATE CREATININE CLEARANCE IN PREDICTING GLOMERULAR FILTRATION RATE . ESTIMATED GFR I S NOT APPLICABLE FOR DIALYSIS PATIEN TS. Gel Coat Sprayer ID - PIAYA LCBC W/PLT COUNT & AUTO [id number] 05:59:49 Test Item Value Reference Range Interpretation Comments WHITE BLOOD CELL COUNT (BEAKER) 4.2 K/ L 3.5-10.5 (test code = 775) RED BLOOD CELL COUNT (BEAKER) 3.15 M/ L 4.63-6.08 L (test code = 761) HEMOGLOBIN (BEAKER) (test code = 9.0 GM/DL 13.7-17.5 L 410) HEMATOCRIT (BEAKER) (test code = 28.5 % 40.1-51.0 L 411) MEAN CORPUSCULAR VOLUME (BEAKER) 90.5 fL 79.0-92.2 (test code = 753) MEAN CORPUSCULAR HEMOGLOBIN 28.6 pg 25.7-32.2 (BEAKER) (test code = 751) MEAN CORPUSCULAR HEMOGLOBIN CONC 31.6 GM/DL 32.3-36.5 L (BEAKER) (test code = 752) RED CELL DISTRIBUTION WIDTH 13.2 % 11.6-14.4 (BEAKER) (test code = 412) PLATELET COUNT (BEAKER) (test 163 K/CU MM 150-450 code = 756) MEAN PLATELET VOLUME (BEAKER) 9.6 fL 9.4-12.4 (test code = 754) NUCLEATED RED BLOOD CELLS 0 /100 WBC 0-0 (BEAKER) (test code = 413) NEUTROPHILS RELATIVE PERCENT 55 % (BEAKER) (test code = 429) LYMPHOCYTES RELATIVE PERCENT 28 % (BEAKER) (test code = 430) MONOCYTES RELATIVE PERCENT 13 % (BEAKER) (test code = 431) EOSINOPHILS RELATIVE PERCENT 3 % (BEAKER) (test code = 432) BASOPHILS RELATIVE PERCENT 1 % (BEAKER) (test code = 437) NEUTROPHILS ABSOLUTE COUNT 2.28 K/ L 1.78-5.38 (BEAKER) (test code = 670) LYMPHOCYTES ABSOLUTE COUNT 1.18 K/ L 1.32-3.57 L (BEAKER) (test code = 414) MONOCYTES ABSOLUTE COUNT (BEAKER) 0.53 K/ L 0.30-0.82 (test code = 415) EOSINOPHILS ABSOLUTE COUNT 0.12 K/ L 0.04-0.54 (BEAKER) (test code = 416) BASOPHILS ABSOLUTE COUNT (BEAKER) 0.04 K/ L 0.01-0.08 (test code = 417) IMMATURE GRANULOCYTES-RELATIVE 1 % 0-1 PERCENT (BEAKER) (test code = 2801) CALCIUM, [id number] 05:38:55 Test Item Value Reference Range Interpretation Comments CALCIUM IONIZED (BEAKER) (test 1.20 mmol/L 1.12-1.27 code = 698) PH, BLOOD (BEAKER) (test code = 7.41 1810) CALCIUM, [id number] 08:14:24 Test Item Value Reference Range Interpretation Comments CALCIUM IONIZED (BEAKER) (test 1.17 mmol/L 1.12-1.27 code = 698) PH, BLOOD (BEAKER) (test code = 7.39 1810) [id number] 07:26:57 Test Item Value Reference Range Interpretation Comments MAGNESIUM (BEAKER) (test code = 2.3 mg/dL 1.6-2.6 627) Gel Coat Sprayer MAGDALENE CANALES [id number] 07:26:57 Test Item Value Reference Range Interpretation Comments PHOSPHORUS (BEAKER) (test code = 2.6 mg/dL 2.3-4.7 604) Gel Coat Sprayer MAGDALENE CANALES FBASIC METABOLIC [id number] 07:26:56 Test Item Value Reference Range Interpretation Comments SODIUM (BEAKER) 136 meq/L 136-145 (test code = 381) POTASSIUM (BEAKER) 4.2 meq/L 3.5-5.1 (test code = 379) CHLORIDE (BEAKER) 101 meq/L 98-107 (test code = 382) CO2 (BEAKER) (test 26 meq/L 22-29 code = 355) BLOOD UREA NITROGEN 23 mg/dL 7-21 H (BEAKER) (test code = 354) CREATININE (BEAKER) 0.75 mg/dL 0.57-1.25 (test code = 358) GLUCOSE RANDOM 80 mg/dL 70-105 (BEAKER) (test code = 652) CALCIUM (BEAKER) 9.0 mg/dL 8.4-10.2 (test code = 697) EGFR (BEAKER) (test 103 mL/min/1.73 ESTIM ATED GFR IS code = 1092) sq m NOT ACCURATE CREATININE CLEARANCE IN PREDICTING GLOMERULAR FILTRATION RATE . ESTIMATED GFR I S NOT APPLICABLE FOR DIALYSIS PATIEN TS. Gel Coat Sprayer ID - [place] [facility] W/PLT COUNT & AUTO [id number] 06:33:08 Test Item Value Reference Range Interpretation Comments WHITE BLOOD CELL COUNT (BEAKER) 4.9 K/ L 3.5-10.5 (test code = 775) RED BLOOD CELL COUNT (BEAKER) 3.17 M/ L 4.63-6.08 L (test code = 761) HEMOGLOBIN (BEAKER) (test code = 9.3 GM/DL 13.7-17.5 L 410) HEMATOCRIT (BEAKER) (test code = 28.1 % 40.1-51.0 L 411) MEAN CORPUSCULAR VOLUME (BEAKER) 88.6 fL 79.0-92.2 (test code = 753) MEAN CORPUSCULAR HEMOGLOBIN 29.3 pg 25.7-32.2 (BEAKER) (test code = 751) MEAN CORPUSCULAR HEMOGLOBIN CONC 33.1 GM/DL 32.3-36.5 (BEAKER) (test code = 752) RED CELL DISTRIBUTION WIDTH 12.9 % 11.6-14.4 (BEAKER) (test code = 412) PLATELET COUNT (BEAKER) (test 159 K/CU MM 150-450 code = 756) MEAN PLATELET VOLUME (BEAKER) 9.8 fL 9.4-12.4 (test code = 754) NUCLEATED RED BLOOD CELLS 0 /100 WBC 0-0 (BEAKER) (test code = 413) NEUTROPHILS RELATIVE PERCENT 63 % (BEAKER) (test code = 429) LYMPHOCYTES RELATIVE PERCENT 20 % (BEAKER) (test code = 430) MONOCYTES RELATIVE PERCENT 14 % (BEAKER) (test code = 431) EOSINOPHILS RELATIVE PERCENT 2 % (BEAKER) (test code = 432) BASOPHILS RELATIVE PERCENT 1 % (BEAKER) (test code = 437) NEUTROPHILS ABSOLUTE COUNT 3.09 K/ L 1.78-5.38 (BEAKER) (test code = 670) LYMPHOCYTES ABSOLUTE COUNT 0.97 K/ L 1.32-3.57 L (BEAKER) (test code = 414) MONOCYTES ABSOLUTE COUNT (BEAKER) 0.68 K/ L 0.30-0.82 (test code = 415) EOSINOPHILS ABSOLUTE COUNT 0.10 K/ L 0.04-0.54 (BEAKER) (test code = 416) BASOPHILS ABSOLUTE COUNT (BEAKER) 0.04 K/ L 0.01-0.08 (test code = 417) IMMATURE GRANULOCYTES-RELATIVE 0 % 0-1 PERCENT (BEAKER) (test code = 2801) BASIC METABOLIC [id number] 08:10:33 Test Item Value Reference Range Interpretation Comments SODIUM (BEAKER) 136 meq/L 136-145 (test code = 381) POTASSIUM (BEAKER) 3.9 meq/L 3.5-5.1 (test code = 379) CHLORIDE (BEAKER) 101 meq/L 98-107 (test code = 382) CO2 (BEAKER) (test 28 meq/L 22-29 code = 355) BLOOD UREA NITROGEN 21 mg/dL 7-21 (BEAKER) (test code = 354) CREATININE (BEAKER) 0.77 mg/dL 0.57-1.25 (test code = 358) GLUCOSE RANDOM 86 mg/dL 70-105 (BEAKER) (test code = 652) CALCIUM (BEAKER) 9.3 mg/dL 8.4-10.2 (test code = 697) EGFR (BEAKER) (test 100 mL/min/1.73 ESTIM ATED GFR IS code = 1092) sq m NOT ACCURATE CREATININE CLEARANCE IN PREDICTING GLOMERULAR FILTRATION RATE . ESTIMATED GFR I S NOT APPLICABLE FOR DIALYSIS PATIEN TS. Gel Coat Sprayer ID - EMERSONOperator ID - SELVIN MSARS-CoV2/RT-PCR (Asymptomatic ONLY) 2021-01-09 07:58:02 Test Item Value Reference Range Interpretation Comments SARS-COV2/RT-PCR Negative Not Detected, (test code = Negative, See 07811-0) external report for linked test SARS[place]COV-2 [place] [facility] (test code = 56551-9) TOSHIA (test code = Negative result for this TOSHIA) test determines that SARS-CoV-2 RNA was not present in the specimen above the Limit of Detection (LOD). However, Negative results do not preclude SARS-CoV-2 infection and should not be used as the sole basis for treatment or patient management decisions. Negative results must be combined with clinical observations, patient history, and epidemiological information. A false negative result may occur if a specimen is improperly collected, transported or handled. A false negative result should be considered if patient's recent exposures or clinical presentation indicate that COVID-19 (SARS-CoV-2) is likely and diagnostic tests for other causes of illness are negative. Re-testing should be considered in cases of suspected false negatives. The limit of detection for this assay is 800 copies/mL. This SARS CoV-2 test is a real-time RT-PCR test intended for the qualitative detection of nucleic acid from SARS-CoV-2 in a nasopharyngeal swab specimen collected from individuals suspected of COVID-19 by their healthcare provider. This test has not been Food and Drug Administration (FDA) cleared or approved. This is a modified version of an approved Emergency Use Authorization (EUA) and is in the process of review by the FDA. Once authorized by the FDA, the issued EUA will be effective until the declaration that circumstances exist justifying the authorization of the emergency use of in vitro diagnostic tests for detection and/or diagnosis of COVID-19 is terminated under Section 564(b)(2) of the Act or the EUA is revoked under Section 564(g) of the Act. Fact Sheet for Healthcare Providers:https://www.[employer] idel[employer]/sites/default/f ying/product/documents/F act_Sheet_HC_Providers_L rdt_BWNN-MuS-4.pdf Fact Sheet for Healthcare Patients:https://www.frederick del.com/sites/default/fi les/product/documents/Fa ct_Sheet_Patients_Lyra_S ARS-CoV-2.pdf Performing Laboratory:[facility], [place] [address] [place], [place] [address]COV2/RT-PCR ([facility])2021-01-09 07:58:02 Test Item Value Reference Range Interpretation Comments SARS-COV2/RT-PCR (test Negative Not Detected, Negative, code = 3276457) See external report for linked test SARS-COV-[address] [facility] (test code = 6435214) Negative result for this test determines that SARS-CoV-2 RNA was not present in the specimen above the Limit of Detection (LOD). However, Negative results do not preclude SARS-CoV-2 infection and should not be used as the sole basis for treatment or patient management decisions. Negative results mustbe combined with clinical observations, patient history, and epidemiological information. A false negative result may occur if a specimen is improperly collected, transported or handled. A false negative result should be considered if patient's recent exposures or clinical presentation indicate that COVID-19 (SARS-CoV-2) is likely and diagnostic tests for other causes of illness are negative. Re-testing should be considered in cases of suspected false negatives.The limit of detection for this assay is 800 copies/mL.This SARS CoV-2 test is a real-time RT-PCR test intended for the qualitative detection of nucleic acid from SARS-CoV-2 in a nasopharyngeal swab specimen collected from individuals susp ected of COVID-19 by their healthcare provider.This test has not been Food and Drug Administration (FDA) cleared or approved. This is a modified version of an approved Emergency Use Authorization (EUA) and is in the process of review by the FDA. Once authorized by the FDA, the issued EUA will be effective until the declaration that circumstances exist justifying the authorization of the emergency use of in vitro diagnostic tests for detection and/or diagnosis of COVID-19 is terminated under Section 564(b)(2) of the Act or the EUA is revoked under Section 564(g) of the Act.Fact Sheet for Healthcare Providers:https://www.[employer]/sites/default/files/product/documents/Fact_Shee c_XM_Wiekgelbi_Qanv_KHEC-KkK-8.pdfFact Sheet for Healthcare Patients:https://www.[employer].com/sites/default/files/product/ documents/Dxyz_Gksky_Wloowovu_Rbes_FLJP-KaV-8.pdfPerforming Laboratory:[facility], [place] [id number] 07:35:51 Test Item Value Reference Range Interpretation Comments PHOSPHORUS (BEAKER) (test code = 3.2 mg/dL 2.3-4.7 604) Gel Coat Sprayer ID - [id number] 07:35:50 Test Item Value Reference Range Interpretation Comments MAGNESIUM (BEAKER) (test code = 2.5 mg/dL 1.6-2.6 627) Gel Coat Sprayer ID - EMERSONCBC W/PLT COUNT & AUTO [id number] 07:18:03 Test Item Value Reference Range Interpretation Comments WHITE BLOOD CELL COUNT (BEAKER) 4.6 K/ L 3.5-10.5 (test code = 775) RED BLOOD CELL COUNT (BEAKER) 3.66 M/ L 4.63-6.08 L (test code = 761) HEMOGLOBIN (BEAKER) (test code = 10.5 GM/DL 13.7-17.5 L 410) HEMATOCRIT (BEAKER) (test code = 32.6 % 40.1-51.0 L 411) MEAN CORPUSCULAR VOLUME (BEAKER) 89.1 fL 79.0-92.2 (test code = 753) MEAN CORPUSCULAR HEMOGLOBIN 28.7 pg 25.7-32.2 (BEAKER) (test code = 751) MEAN CORPUSCULAR HEMOGLOBIN CONC 32.2 GM/DL 32.3-36.5 L (BEAKER) (test code = 752) RED CELL DISTRIBUTION WIDTH 12.7 % 11.6-14.4 (BEAKER) (test code = 412) PLATELET COUNT (BEAKER) (test 147 K/CU MM 150-450 L code = 756) MEAN PLATELET VOLUME (BEAKER) 9.8 fL 9.4-12.4 (test code = 754) NUCLEATED RED BLOOD CELLS 0 /100 WBC 0-0 (BEAKER) (test code = 413) NEUTROPHILS RELATIVE PERCENT 58 % (BEAKER) (test code = 429) LYMPHOCYTES RELATIVE PERCENT 27 % (BEAKER) (test code = 430) MONOCYTES RELATIVE PERCENT 12 % (BEAKER) (test code = 431) EOSINOPHILS RELATIVE PERCENT 3 % (BEAKER) (test code = 432) BASOPHILS RELATIVE PERCENT 1 % (BEAKER) (test code = 437) NEUTROPHILS ABSOLUTE COUNT 2.64 K/ L 1.78-5.38 (BEAKER) (test code = 670) LYMPHOCYTES ABSOLUTE COUNT 1.21 K/ L 1.32-3.57 L (BEAKER) (test code = 414) MONOCYTES ABSOLUTE COUNT (BEAKER) 0.53 K/ L 0.30-0.82 (test code = 415) EOSINOPHILS ABSOLUTE COUNT 0.12 K/ L 0.04-0.54 (BEAKER) (test code = 416) BASOPHILS ABSOLUTE COUNT (BEAKER) 0.04 K/ L 0.01-0.08 (test code = 417) IMMATURE GRANULOCYTES-RELATIVE 0 % 0-1 PERCENT (BEAKER) (test code = 2801) CALCIUM, [id number] 07:16:42 Test Item Value Reference Range Interpretation Comments CALCIUM IONIZED (BEAKER) (test 1.21 mmol/L 1.12-1.27 code = 698) PH, BLOOD (BEAKER) (test code = 7.36 1810) RAD, CHEST, 1 VIEW, NON [id number] 06:23:00Reason for exam:->CIED ImplantationShould this be performed at the bedside?->Yes [facility] 1950 Sex: MFINAL REPORT RAD, CHEST, 1 VIEW, NON DEPT INDICATION: CIED Implantat ion COMPARISON: None FINDINGS: Portable frontal view of the chest. IMPRESSION: Support Lines: Pacer device Lungs and pleura: Lungs are predominantly clear. No significant pneumothorax. Heart and mediastinum: Normal contours. Additional findings: None. Signed: Yesy [place] Verified Date/Time: 01/09/2021 06:23:09 CALCIUM, [id number] 06:37:00 Test Item Value Reference Range Interpretation Comments CALCIUM IONIZED (BEAKER) (test 1.21 mmol/L 1.12-1.27 code = 698) PH, BLOOD (BEAKER) (test code = 7.42 1810) BASIC METABOLIC [id number] 06:26:00 Test Item Value Reference Range Interpretation Comments SODIUM (BEAKER) 136 meq/L 136-145 (test code = 381) POTASSIUM (BEAKER) 4.1 meq/L 3.5-5.1 (test code = 379) CHLORIDE (BEAKER) 102 meq/L 98-107 (test code = 382) CO2 (BEAKER) (test 28 meq/L 22-29 code = 355) BLOOD UREA NITROGEN 18 mg/dL 7-21 (BEAKER) (test code = 354) CREATININE (BEAKER) 0.81 mg/dL 0.57-1.25 (test code = 358) GLUCOSE RANDOM 94 mg/dL 70-105 (BEAKER) (test code = 652) CALCIUM (BEAKER) 8.9 mg/dL 8.4-10.2 (test code = 697) EGFR (BEAKER) (test 94 mL/min/1.73 ESTIMA CHRYSTAL GFR IS code = 1092) sq m NOT ACCURATE CREATININE CLEARANCE IN PREDICTING GLOMERULAR FILTRATION RATE . ESTIMATED GFR I S NOT APPLICABLE FOR DIALYSIS PATIEN TS. Gel Coat Sprayer ID - YA [id number] 06:26:00 Test Item Value Reference Range Interpretation Comments MAGNESIUM (BEAKER) (test code = 2.6 mg/dL 1.6-2.6 627) Gel Coat Sprayer ID - YA [id number] 06:26:00 Test Item Value Reference Range Interpretation Comments PHOSPHORUS (BEAKER) (test code = 2.9 mg/dL 2.3-4.7 604) Gel Coat Sprayer ID - YA LCBC W/PLT COUNT & AUTO [id number] 06:01:00 Test Item Value Reference Range Interpretation Comments WHITE BLOOD CELL COUNT (BEAKER) 4.6 K/ L 3.5-10.5 (test code = 775) RED BLOOD CELL COUNT (BEAKER) 3.43 M/ L 4.63-6.08 L (test code = 761) HEMOGLOBIN (BEAKER) (test code = 9.9 GM/DL 13.7-17.5 L 410) HEMATOCRIT (BEAKER) (test code = 29.9 % 40.1-51.0 L 411) MEAN CORPUSCULAR VOLUME (BEAKER) 87.2 fL 79.0-92.2 (test code = 753) MEAN CORPUSCULAR HEMOGLOBIN 28.9 pg 25.7-32.2 (BEAKER) (test code = 751) MEAN CORPUSCULAR HEMOGLOBIN CONC 33.1 GM/DL 32.3-36.5 (BEAKER) (test code = 752) RED CELL DISTRIBUTION WIDTH 12.5 % 11.6-14.4 (BEAKER) (test code = 412) PLATELET COUNT (BEAKER) (test 137 K/CU MM 150-450 L code = 756) MEAN PLATELET VOLUME (BEAKER) 10.0 fL 9.4-12.4 (test code = 754) NUCLEATED RED BLOOD CELLS 0 /100 WBC 0-0 (BEAKER) (test code = 413) NEUTROPHILS RELATIVE PERCENT 62 % (BEAKER) (test code = 429) LYMPHOCYTES RELATIVE PERCENT 22 % (BEAKER) (test code = 430) MONOCYTES RELATIVE PERCENT 14 % (BEAKER) (test code = 431) EOSINOPHILS RELATIVE PERCENT 1 % (BEAKER) (test code = 432) BASOPHILS RELATIVE PERCENT 0 % (BEAKER) (test code = 437) NEUTROPHILS ABSOLUTE COUNT 2.83 K/ L 1.78-5.38 (BEAKER) (test code = 670) LYMPHOCYTES ABSOLUTE COUNT 0.99 K/ L 1.32-3.57 L (BEAKER) (test code = 414) MONOCYTES ABSOLUTE COUNT (BEAKER) 0.63 K/ L 0.30-0.82 (test code = 415) EOSINOPHILS ABSOLUTE COUNT 0.06 K/ L 0.04-0.54 (BEAKER) (test code = 416) BASOPHILS ABSOLUTE COUNT (BEAKER) 0.02 K/ L 0.01-0.08 (test code = 417) IMMATURE GRANULOCYTES-RELATIVE 0 % 0-1 PERCENT (BEAKER) (test code = 2801) [id number] 12:55:00 Test Item Value Reference Range Interpretation Comments Cortisol, Total (test code 22.8 ug/dL 3.7-19.4 H = 2755) TOSHIA (test code = TOSHIA) Gel Coat Sprayer ID Lety CANALES F Lab Interpretation (test Abnormal code = 83358-8) [facility] Test Item Value Reference Range Interpretation Comments CORTISOL, TOTAL (BEAKER) (test 22.8 ug/dL 3.7-19.4 H code = 2755) Gel Coat Sprayer ID Lety CANALES FCALCIUM, [id number] 05:22:00 Test Item Value Reference Range Interpretation Comments CALCIUM IONIZED (BEAKER) (test 1.22 mmol/L 1.12-1.27 code = 698) PH, BLOOD (BEAKER) (test code = 7.39 1810) [id number] 05:08:00 Test Item Value Reference Range Interpretation Comments MAGNESIUM (BEAKER) 1.9 mg/dL 1.6-2.6 Specimen moderately (test code = 627) hemolyzed Gel Coat Sprayer ID Lety MONTALVO [id number] 05:08:00 Test Item Value Reference Range Interpretation Comments PHOSPHORUS (BEAKER) 2.8 mg/dL 2.3-4.7 Specimen moderately (test code = 604) hemolyzed Gel Coat Sprayer ID Lety MONTALVO MBASIC METABOLIC [id number] 05:08:00 Test Item Value Reference Range Interpretation Comments SODIUM (BEAKER) 133 meq/L 136-145 L (test code = 381) POTASSIUM (BEAKER) 4.5 meq/L 3.5-5.1 Specimen moderately (test code = 379) hemolyzed CHLORIDE (BEAKER) 101 meq/L 98-107 (test code = 382) CO2 (BEAKER) (test 24 meq/L 22-29 code = 355) BLOOD UREA NITROGEN 18 mg/dL 7-21 (BEAKER) (test code = 354) CREATININE (BEAKER) 0.80 mg/dL 0.57-1.25 Specimen moderately (test code = 358) hemolyzed GLUCOSE RANDOM 93 mg/dL 70-105 (BEAKER) (test code = 652) CALCIUM (BEAKER) 9.0 mg/dL 8.4-10.2 (test code = 697) EGFR (BEAKER) (test 96 mL/min/1.73 ESTIMA CHRYSTAL GFR IS code = 1092) sq m NOT ACCURATE CREATININE CLEARANCE IN PREDICTING GLOMERULAR FILTRATION RATE . ESTIMATED GFR I S NOT APPLICABLE FOR DIALYSIS PATIEN TS. Gel Coat Sprayer ID - SELVIN MCBC W/PLT COUNT & AUTO [id number] 04:40:00 Test Item Value Reference Range Interpretation Comments WHITE BLOOD CELL COUNT (BEAKER) 4.8 K/ L 3.5-10.5 (test code = 775) RED BLOOD CELL COUNT (BEAKER) 3.71 M/ L 4.63-6.08 L (test code = 761) HEMOGLOBIN (BEAKER) (test code = 10.8 GM/DL 13.7-17.5 L 410) HEMATOCRIT (BEAKER) (test code = 32.4 % 40.1-51.0 L 411) MEAN CORPUSCULAR VOLUME (BEAKER) 87.3 fL 79.0-92.2 (test code = 753) MEAN CORPUSCULAR HEMOGLOBIN 29.1 pg 25.7-32.2 (BEAKER) (test code = 751) MEAN CORPUSCULAR HEMOGLOBIN CONC 33.3 GM/DL 32.3-36.5 (BEAKER) (test code = 752) RED CELL DISTRIBUTION WIDTH 12.4 % 11.6-14.4 (BEAKER) (test code = 412) PLATELET COUNT (BEAKER) (test 179 K/CU MM 150-450 code = 756) MEAN PLATELET VOLUME (BEAKER) 9.8 fL 9.4-12.4 (test code = 754) NUCLEATED RED BLOOD CELLS 0 /100 WBC 0-0 (BEAKER) (test code = 413) NEUTROPHILS RELATIVE PERCENT 68 % (BEAKER) (test code = 429) LYMPHOCYTES RELATIVE PERCENT 19 % (BEAKER) (test code = 430) MONOCYTES RELATIVE PERCENT 12 % (BEAKER) (test code = 431) EOSINOPHILS RELATIVE PERCENT 1 % (BEAKER) (test code = 432) BASOPHILS RELATIVE PERCENT 1 % (BEAKER) (test code = 437) NEUTROPHILS ABSOLUTE COUNT 3.22 K/ L 1.78-5.38 (BEAKER) (test code = 670) LYMPHOCYTES ABSOLUTE COUNT 0.91 K/ L 1.32-3.57 L (BEAKER) (test code = 414) MONOCYTES ABSOLUTE COUNT (BEAKER) 0.55 K/ L 0.30-0.82 (test code = 415) EOSINOPHILS ABSOLUTE COUNT 0.05 K/ L 0.04-0.54 (BEAKER) (test code = 416) BASOPHILS ABSOLUTE COUNT (BEAKER) 0.03 K/ L 0.01-0.08 (test code = 417) IMMATURE GRANULOCYTES-RELATIVE 0 % 0-1 PERCENT (BEAKER) (test code = 2801) [id number] 22:14:00 Test Item Value Reference Range Interpretation Comments Potassium (test code = 4.2 meq/L 3.5-5.1 2823-3) TOSHIA (test code = TOSHIA) Gel Coat Sprayer ID - CDP Lab Interpretation (test Normal code = 18671-3) [facility]:14:00 Test Item Value Reference Range Interpretation Comments MAGNESIUM (BEAKER) (test code = 1.9 mg/dL 1.6-2.6 627) Gel Coat Sprayer ID - [id number] 22:14:00 Test Item Value Reference Range Interpretation Comments POTASSIUM (BEAKER) (test code = 4.2 meq/L 3.5-5.1 379) Gel Coat Sprayer ID - CDPCarbohydrate antigen 19-9 (CA 19-9)2021-01-06 14:01:00 Test Item Value Reference Range Interpretation Comments CA 19-9 12 U/mL <34 This test was (test code = performed using the 25070-8) Siemens Chemiluminescen t method.Values o btained from different assay methods cannot be used interchangeably .CA19-9 levels, regardl ess of value, should n ot be interpreted as absoluteevidenc e of the presence or abs ence of disease. TOSHIA (test Performing Lab code = TOSHIA) [facility] [address] [place] [address] Atul Iyer MD, PhD, WILFREDO [facility]ABOLIC [id number] 04:48:00 Test Item Value Reference Range Interpretation Comments SODIUM (BEAKER) 134 meq/L 136-145 L (test code = 381) POTASSIUM (BEAKER) 4.5 meq/L 3.5-5.1 (test code = 379) CHLORIDE (BEAKER) 104 meq/L 98-107 (test code = 382) CO2 (BEAKER) (test 24 meq/L 22-29 code = 355) BLOOD UREA NITROGEN 19 mg/dL 7-21 (BEAKER) (test code = 354) CREATININE (BEAKER) 0.72 mg/dL 0.57-1.25 (test code = 358) GLUCOSE RANDOM 83 mg/dL 70-105 (BEAKER) (test code = 652) CALCIUM (BEAKER) 9.0 mg/dL 8.4-10.2 (test code = 697) EGFR (BEAKER) (test 108 mL/min/1.73 ESTIM ATED GFR IS code = 1092) sq m NOT ACCURATE CREATININE CLEARANCE IN PREDICTING GLOMERULAR FILTRATION RATE . ESTIMATED GFR I S NOT APPLICABLE FOR DIALYSIS PATIEN TS. Gel Coat Sprayer ID - PIAYA [id number] 04:48:00 Test Item Value Reference Range Interpretation Comments MAGNESIUM (BEAKER) (test code = 2.1 mg/dL 1.6-2.6 627) Gel Coat Sprayer ID - PIAYA LCBC W/PLT COUNT & AUTO [id number] 04:20:00 Test Item Value Reference Range Interpretation Comments WHITE BLOOD CELL COUNT (BEAKER) 5.3 K/ L 3.5-10.5 (test code = 775) RED BLOOD CELL COUNT (BEAKER) 3.75 M/ L 4.63-6.08 L (test code = 761) HEMOGLOBIN (BEAKER) (test code = 10.7 GM/DL 13.7-17.5 L 410) HEMATOCRIT (BEAKER) (test code = 32.7 % 40.1-51.0 L 411) MEAN CORPUSCULAR VOLUME (BEAKER) 87.2 fL 79.0-92.2 (test code = 753) MEAN CORPUSCULAR HEMOGLOBIN 28.5 pg 25.7-32.2 (BEAKER) (test code = 751) MEAN CORPUSCULAR HEMOGLOBIN CONC 32.7 GM/DL 32.3-36.5 (BEAKER) (test code = 752) RED CELL DISTRIBUTION WIDTH 12.6 % 11.6-14.4 (BEAKER) (test code = 412) PLATELET COUNT (BEAKER) (test 150 K/CU MM 150-450 code = 756) MEAN PLATELET VOLUME (BEAKER) 9.4 fL 9.4-12.4 (test code = 754) NUCLEATED RED BLOOD CELLS 0 /100 WBC 0-0 (BEAKER) (test code = 413) NEUTROPHILS RELATIVE PERCENT 71 % (BEAKER) (test code = 429) LYMPHOCYTES RELATIVE PERCENT 17 % (BEAKER) (test code = 430) MONOCYTES RELATIVE PERCENT 10 % (BEAKER) (test code = 431) EOSINOPHILS RELATIVE PERCENT 1 % (BEAKER) (test code = 432) BASOPHILS RELATIVE PERCENT 0 % (BEAKER) (test code = 437) NEUTROPHILS ABSOLUTE COUNT 3.74 K/ L 1.78-5.38 (BEAKER) (test code = 670) LYMPHOCYTES ABSOLUTE COUNT 0.90 K/ L 1.32-3.57 L (BEAKER) (test code = 414) MONOCYTES ABSOLUTE COUNT (BEAKER) 0.55 K/ L 0.30-0.82 (test code = 415) EOSINOPHILS ABSOLUTE COUNT 0.05 K/ L 0.04-0.54 (BEAKER) (test code = 416) BASOPHILS ABSOLUTE COUNT (BEAKER) 0.02 K/ L 0.01-0.08 (test code = 417) IMMATURE GRANULOCYTES-RELATIVE 0 % 0-1 PERCENT (BEAKER) (test code = 2801) BASIC METABOLIC [id number] 03:41:00 Test Item Value Reference Range Interpretation Comments SODIUM (BEAKER) 138 meq/L 136-145 (test code = 381) POTASSIUM (BEAKER) 4.8 meq/L 3.5-5.1 (test code = 379) CHLORIDE (BEAKER) 102 meq/L 98-107 (test code = 382) CO2 (BEAKER) (test 26 meq/L 22-29 code = 355) BLOOD UREA NITROGEN 21 mg/dL 7-21 (BEAKER) (test code = 354) CREATININE (BEAKER) 0.91 mg/dL 0.57-1.25 (test code = 358) GLUCOSE RANDOM 99 mg/dL 70-105 (BEAKER) (test code = 652) CALCIUM (BEAKER) 9.3 mg/dL 8.4-10.2 (test code = 697) EGFR (BEAKER) (test 82 mL/min/1.73 ESTIMA CHRYSTAL GFR IS code = 1092) sq m NOT ACCURATE CREATININE CLEARANCE IN PREDICTING GLOMERULAR FILTRATION RATE . ESTIMATED GFR I S NOT APPLICABLE FOR DIALYSIS PATIEN TS. Gel Coat Sprayer ID - PILINK [id number] 03:41:00 Test Item Value Reference Range Interpretation Comments MAGNESIUM (BEAKER) (test code = 1.8 mg/dL 1.6-2.6 627) Gel Coat Sprayer ID - YA [id number] 03:21:00 Test Item Value Reference Interpretation Comments Range Protime (test code = 14.4 See_Comment H [Autom ated 5902-2) message] The system which generated this result transmitted reference range : 11.9 - 14.2 seconds. The reference range was not used to interpret this result as normal/abnormal . INR (test code = 1.14 See_Comment [Automated 6021-6) message] The system which generated this result transmitted reference range : <=5.90. The reference range was not used to interpret this result as normal/abnormal . PTT (test code = 51.9 See_Comment H [Automated 86224-8) message] The system which generated this result transmitted reference range : 22.5 - 36.0 seconds. The reference range was not used to interpret this result as normal/abnormal . TOSHIA (test code = RECOMMENDED TOSHIA) COUMADIN/WARFARIN INR THERAPY RANGESSTANDARD DOSE: 2.0 - 3.0 Includes: PROPHYLAXIS for venous thrombosis, systemic embolization; TREATMENT for venous thrombosis and/or pulmonary embolus.HIGH RISK: Target INR is 2.5-3.5 for patients with mechanical heart valves. Lab Interpretation Abnormal (test code = 70628-7) [id number] 03:21:00 Test Item Value Reference Range Interpretation Comments PROTIME (BEAKER) (test 14.4 seconds 11.9-14.2 H code = 759) INR (BEAKER) (test 1.14 See_Comment [Automat ed code = 370) message] The sy stem which generated this result transmitted reference range : <=5.90. The reference range was not used to interpret this result as normal/abnormal . PARTIAL THROMBOPLASTIN 51.9 seconds 22.5-36.0 H TIME (BEAKER) (test code = 760) RECOMMENDED COUMADIN/WARFARIN INR THERAPY RANGESSTANDARD DOSE: 2.0 - 3.0 Includes: PROPHYLAXIS forvenous thrombosis, systemic embolization; TREATMENT for venous thrombosis and/or pulmonary embolus.HIGH RISK: Target INR is 2.5-3.5 for patients with mechanical heart valves.CBC W/PLT COUNT & AUTO DIFFERENTIAL 2021-01-05 02:58:00 Test Item Value Reference Range Interpretation Comments WHITE BLOOD CELL COUNT (BEAKER) 5.1 K/ L 3.5-10.5 (test code = 775) RED BLOOD CELL COUNT (BEAKER) 3.93 M/ L 4.63-6.08 L (test code = 761) HEMOGLOBIN (BEAKER) (test code = 11.2 GM/DL 13.7-17.5 L 410) HEMATOCRIT (BEAKER) (test code = 34.5 % 40.1-51.0 L 411) MEAN CORPUSCULAR VOLUME (BEAKER) 87.8 fL 79.0-92.2 (test code = 753) MEAN CORPUSCULAR HEMOGLOBIN 28.5 pg 25.7-32.2 (BEAKER) (test code = 751) MEAN CORPUSCULAR HEMOGLOBIN CONC 32.5 GM/DL 32.3-36.5 (BEAKER) (test code = 752) RED CELL DISTRIBUTION WIDTH 12.5 % 11.6-14.4 (BEAKER) (test code = 412) PLATELET COUNT (BEAKER) (test 175 K/CU MM 150-450 code = 756) MEAN PLATELET VOLUME (BEAKER) 9.4 fL 9.4-12.4 (test code = 754) NUCLEATED RED BLOOD CELLS 0 /100 WBC 0-0 (BEAKER) (test code = 413) NEUTROPHILS RELATIVE PERCENT 71 % (BEAKER) (test code = 429) LYMPHOCYTES RELATIVE PERCENT 19 % (BEAKER) (test code = 430) MONOCYTES RELATIVE PERCENT 8 % (BEAKER) (test code = 431) EOSINOPHILS RELATIVE PERCENT 1 % (BEAKER) (test code = 432) BASOPHILS RELATIVE PERCENT 1 % (BEAKER) (test code = 437) NEUTROPHILS ABSOLUTE COUNT 3.61 K/ L 1.78-5.38 (BEAKER) (test code = 670) LYMPHOCYTES ABSOLUTE COUNT 0.99 K/ L 1.32-3.57 L (BEAKER) (test code = 414) MONOCYTES ABSOLUTE COUNT (BEAKER) 0.40 K/ L 0.30-0.82 (test code = 415) EOSINOPHILS ABSOLUTE COUNT 0.06 K/ L 0.04-0.54 (BEAKER) (test code = 416) BASOPHILS ABSOLUTE COUNT (BEAKER) 0.03 K/ L 0.01-0.08 (test code = 417) IMMATURE GRANULOCYTES-RELATIVE 0 % 0-1 PERCENT (BEAKER) (test code = 2801) MR, ABDOMEN, [id number] 13:16:00Unlisted Reason for Exam - Click Yes and Enter Reason Below->No [facility]ADILL[facility] : 1950 Sex: MFINAL REPORT TECHNIQUE: MRI of the abdomen WITHOUT and WITH intraven ous contrast. INDICATION: Liver mass. COMPARISON: CT 01/02/2021. FINDINGS: LOWER THORAX: Unremarkable. LIVER: No hepatic signal abnormality. 2 cm T2 hyperintense mass in the dome of the liver which demonstrates discontinuous peripheral nodular enhancement which continues to fill centrally on the delayed images.. No additional hepatic masses are identified.. BILIARY: Gallbladder is unremarkable. No biliary ductal dilatation or filling defect.SPLEEN: No splenomegaly.PANCREAS: No focal masses or ductal dilatation. ADRENALS: No adrenal nodules.KIDNEYS/URETERS: No hydronephrosis or solid mass lesions. PER ITONEUM/RETROPERITONEUM: Trace free fluid..LYMPH NODES: No lymphadenopathy.VESSELS: Atherosclerotic changes in the abdominal aorta. No evidence of aneurysmal dilation. Portal vein, splenic vein and superior mesenteric vein are patent.. GI TRACT: No distention or wall thickening. BONES AND SOFT TISSUES: Unremarkable. IMPRESSION:2 cm benign hepatic hemangioma in the dome of the liver. Trace ascites. Signed: Gerard Chiort Verified Date/Time: 01/04/2021 13:16:41 Reading Location: [facility] C013Y CT Body Reading Room Comprehensive metabolic [id number] 06:54:00 Test Item Value Reference Range Interpretation Comments Protein, Total (test 5.6 See_Comment L Specime n slightly code = 2885-2) hemolyzed [Automated message] The system which generated this result transmit chrystal reference range : 6.0 - 8.3 gm/dL . The reference range was not u sed to interpret th is result as normal/abnormal . Albumin (test code = 3.2 g/dL 3.5-5.0 L Specime n slightly 59778-2) hemolyzed Alkaline Phosphatase 41 U/L 40-150 (test code = 6768-6) Total Bilirubin (test 0.4 mg/dL 0.2-1.2 Specim en slightly code = 1975-2) hemolyzed Sodium (test code = 136 meq/L 406-848 7848-2) Potassium (test code 4.4 meq/L 3.5-5.1 Specime n slightly = 2823-3) hemolyzed Chloride (test code = 104 meq/L 98-107 5-0) CO2 (test code = 26 meq/L 22-29 2027-9) BUN (test code = 17 mg/dL 7-21 3094-0) Creatinine (test code 0.70 mg/dL 0.57-1.25 Specim en slightly = 2160-0) hemolyzed Glucose (test code = 91 mg/dL 70-105 2345-7) Calcium (test code = 9.0 mg/dL 8.4-10.2 69970-4) AST (test code = 19 U/L 5-34 Specimen sl ightly 1920-8) hemolyzed ALT (test code = 10 U/L 6-55 Specimen sl ightly 1742-6) hemolyzed EGFR (test code = 111 mL/min/1.73 [place] [address]-2) NOT ACCURATE CREATININE CLEARANCE IN PREDICTING GLOMERULAR FILTRATION RATE . ESTIMATED GFR I S NOT APPLICABLE FOR DIALYSIS PATIEN TS. TOSHIA (test code = TOSHIA) Gel Coat Sprayer ID - COREY W Lab Interpretation Abnormal (test code = 58983-2) [facility] 06[facility]54:00 Test Item Value Reference Range Interpretation Comments MAGNESIUM (BEAKER) 1.9 mg/dL 1.6-2.6 Specimen slightly (test code = 627) hemolyzed Gel Coat Sprayer ID - COREY [id number] 06:54:00 Test Item Value Reference Range Interpretation Comments PHOSPHORUS (BEAKER) 2.9 mg/dL 2.3-4.7 Specimen slightly (test code = 604) hemolyzed Gel Coat Sprayer ID - COREY WCOMPREHENSIVE METABOLIC [id number] 06:54:00 Test Item Value Reference Range Interpretation Comments TOTAL PROTEIN 5.6 gm/dL 6.0-8.3 L Specimen sligh tly (BEAKER) (test code = hemoly zed 770) ALBUMIN (BEAKER) 3.2 g/dL 3.5-5.0 L Specimen sl ightly (test code = 1145) hemolyzed ALKALINE PHOSPHATASE 41 U/L 40-150 (BEAKER) (test code = 346) BILIRUBIN TOTAL 0.4 mg/dL 0.2-1.2 Specimen sli ghtly (BEAKER) (test code = hemoly zed 377) SODIUM (BEAKER) (test 136 meq/L 136-145 code = 381) POTASSIUM (BEAKER) 4.4 meq/L 3.5-5.1 Specimen slightly (test code = 379) hemolyzed CHLORIDE (BEAKER) 104 meq/L 98-107 (test code = 382) CO2 (BEAKER) (test 26 meq/L 22-29 code = 355) BLOOD UREA NITROGEN 17 mg/dL 7-21 (BEAKER) (test code = 354) CREATININE (BEAKER) 0.70 mg/dL 0.57-1.25 Specimen slightly (test code = 358) hemolyzed GLUCOSE RANDOM 91 mg/dL 70-105 (BEAKER) (test code = 652) CALCIUM (BEAKER) 9.0 mg/dL 8.4-10.2 (test code = 697) AST (SGOT) (BEAKER) 19 U/L 5-34 Specimen slightly (test code = 353) hemolyzed ALT (SGPT) (BEAKER) 10 U/L 6-55 Specimen slightly (test code = 347) hemolyzed EGFR (BEAKER) (test 111 ESTIMATE D GFR IS code = 1092) mL/min/1.73 sq NOT ACCURA TE m CREATININE CLEARANCE IN PREDICTING GLOMERULAR FILTRATION RATE . ESTIMATED GFR I S NOT APPLICABLE FOR DIALYSIS PATIEN TS. Gel Coat Sprayer ID - COREY WCALCIUM, [id number] 06:05:00 Test Item Value Reference Range Interpretation Comments CALCIUM IONIZED (BEAKER) (test 1.20 mmol/L 1.12-1.27 code = 698) PH, BLOOD (BEAKER) (test code = 7.38 1810) CBC W/PLT COUNT & AUTO [id number] 05:59:00 Test Item Value Reference Range Interpretation Comments WHITE BLOOD CELL COUNT (BEAKER) 4.8 K/ L 3.5-10.5 (test code = 775) RED BLOOD CELL COUNT (BEAKER) 3.68 M/ L 4.63-6.08 L (test code = 761) HEMOGLOBIN (BEAKER) (test code = 10.5 GM/DL 13.7-17.5 L 410) HEMATOCRIT (BEAKER) (test code = 32.6 % 40.1-51.0 L 411) MEAN CORPUSCULAR VOLUME (BEAKER) 88.6 fL 79.0-92.2 (test code = 753) MEAN CORPUSCULAR HEMOGLOBIN 28.5 pg 25.7-32.2 (BEAKER) (test code = 751) MEAN CORPUSCULAR HEMOGLOBIN CONC 32.2 GM/DL 32.3-36.5 L (BEAKER) (test code = 752) RED CELL DISTRIBUTION WIDTH 12.5 % 11.6-14.4 (BEAKER) (test code = 412) PLATELET COUNT (BEAKER) (test 170 K/CU MM 150-450 code = 756) MEAN PLATELET VOLUME (BEAKER) 9.6 fL 9.4-12.4 (test code = 754) NUCLEATED RED BLOOD CELLS 0 /100 WBC 0-0 (BEAKER) (test code = 413) NEUTROPHILS RELATIVE PERCENT 68 % (BEAKER) (test code = 429) LYMPHOCYTES RELATIVE PERCENT 20 % (BEAKER) (test code = 430) MONOCYTES RELATIVE PERCENT 9 % (BEAKER) (test code = 431) EOSINOPHILS RELATIVE PERCENT 2 % (BEAKER) (test code = 432) BASOPHILS RELATIVE PERCENT 0 % (BEAKER) (test code = 437) NEUTROPHILS ABSOLUTE COUNT 3.23 K/ L 1.78-5.38 (BEAKER) (test code = 670) LYMPHOCYTES ABSOLUTE COUNT 0.95 K/ L 1.32-3.57 L (BEAKER) (test code = 414) MONOCYTES ABSOLUTE COUNT (BEAKER) 0.44 K/ L 0.30-0.82 (test code = 415) EOSINOPHILS ABSOLUTE COUNT 0.11 K/ L 0.04-0.54 (BEAKER) (test code = 416) BASOPHILS ABSOLUTE COUNT (BEAKER) 0.02 K/ L 0.01-0.08 (test code = 417) IMMATURE GRANULOCYTES-RELATIVE 0 % 0-1 PERCENT (BEAKER) (test code = 2801) Carcinoembryonic Antigen (CEA)2021-01-03 15:05:00 Test Item Value Reference Range Interpretation Comments CEA, SERUM (test code = 1.3 ng/mL 0.0-5.0 2038-09) TOSHIA (test code = TOSHIA) Gel Coat Sprayer ID - AAHAMID Lab Interpretation (test Normal code = 34620-7) [facility] Test Item Value Reference Range Interpretation Comments PSA (test code = 2857-1) 2.4 ng/mL 0.0-4.0 TOSHIA (test code = TOSHIA) Gel Coat Sprayer ID - AAHAMID Lab Interpretation (test Normal code = 39197-2) [facility] tumor [id number] 15:05:00 Test Item Value Reference Range Interpretation Comments Alpha-Fetoprotein (test 2.7 ng/mL <10.0 code = 1834-1) TOSHIA (test code = TOSHIA) Gel Coat Sprayer ID - AAHAMID Lab Interpretation (test Normal code = 32613-1) [facility] 15:05:00 Test Item Value Reference Range Interpretation Comments PROSTATE SPECIFIC ANTIGEN (BEAKER) 2.4 ng/mL 0.0-4.0 (test code = 844) Gel Coat Sprayer ID - AAHAMIDCARCINOEMBRYONIC ANTIGEN (CEA)2021-01-03 15:05:00 Test Item Value Reference Range Interpretation Comments CARCINOEMBRYONIC ANTIGEN (BEAKER) 1.3 ng/mL 0.0-5.0 (test code = 685) Gel Coat Sprayer ID - ALHAJIIDALPHA FETOPROTEIN (AFP), TUMOR [id number] 15:05:00 Test Item Value Reference Range Interpretation Comments ALPHA-FETOPROTEIN (BEAKER) (test 2.7 ng/mL <10.0 code = 1094) Gel Coat Sprayer ID - AAVINICIUSIDCOMPREHENSIVE METABOLIC [id number] 03:30:00 Test Item Value Reference Range Interpretation Comments TOTAL PROTEIN 5.7 gm/dL 6.0-8.3 L (BEAKER) (test code = 770) ALBUMIN (BEAKER) 3.3 g/dL 3.5-5.0 L (test code = 1145) ALKALINE PHOSPHATASE 44 U/L 40-150 (BEAKER) (test code = 346) BILIRUBIN TOTAL 0.5 mg/dL 0.2-1.2 (BEAKER) (test code = 377) SODIUM (BEAKER) (test 138 meq/L 136-145 code = 381) POTASSIUM (BEAKER) 4.3 meq/L 3.5-5.1 (test code = 379) CHLORIDE (BEAKER) 103 meq/L 98-107 (test code = 382) CO2 (BEAKER) (test 26 meq/L 22-29 code = 355) BLOOD UREA NITROGEN 21 mg/dL 7-21 (BEAKER) (test code = 354) CREATININE (BEAKER) 0.84 mg/dL 0.57-1.25 (test code = 358) GLUCOSE RANDOM 144 mg/dL 70-105 H (BEAKER) (test code = 652) CALCIUM (BEAKER) 8.9 mg/dL 8.4-10.2 (test code = 697) AST (SGOT) (BEAKER) 18 U/L 5-34 (test code = 353) ALT (SGPT) (BEAKER) 11 U/L 6-55 (test code = 347) EGFR (BEAKER) (test 90 mL/min/1.73 ESTIMA CHRYSTAL GFR IS code = 1092) sq m NOT ACCURATE CREATININE CLEARANCE IN PREDICTING GLOMERULAR FILTRATION RATE . ESTIMATED GFR I S NOT APPLICABLE FOR DIALYSIS PATIEN TS. Gel Coat Sprayer ID - COREY [id number] 03:30:00 Test Item Value Reference Range Interpretation Comments MAGNESIUM (BEAKER) (test code = 2.2 mg/dL 1.6-2.6 627) Gel Coat Sprayer ID Lety NICOLE [id number] 03:30:00 Test Item Value Reference Range Interpretation Comments PHOSPHORUS (BEAKER) (test code = 3.1 mg/dL 2.3-4.7 604) Gel Coat Sprayer ID Lety NICOLE WCBC W/PLT COUNT & AUTO [id number] 03:05:00 Test Item Value Reference Range Interpretation Comments WHITE BLOOD CELL COUNT (BEAKER) 5.2 K/ L 3.5-10.5 (test code = 775) RED BLOOD CELL COUNT (BEAKER) 3.60 M/ L 4.63-6.08 L (test code = 761) HEMOGLOBIN (BEAKER) (test code = 10.4 GM/DL 13.7-17.5 L 410) HEMATOCRIT (BEAKER) (test code = 32.1 % 40.1-51.0 L 411) MEAN CORPUSCULAR VOLUME (BEAKER) 89.2 fL 79.0-92.2 (test code = 753) MEAN CORPUSCULAR HEMOGLOBIN 28.9 pg 25.7-32.2 (BEAKER) (test code = 751) MEAN CORPUSCULAR HEMOGLOBIN CONC 32.4 GM/DL 32.3-36.5 (BEAKER) (test code = 752) RED CELL DISTRIBUTION WIDTH 12.7 % 11.6-14.4 (BEAKER) (test code = 412) PLATELET COUNT (BEAKER) (test 166 K/CU MM 150-450 code = 756) MEAN PLATELET VOLUME (BEAKER) 10.0 fL 9.4-12.4 (test code = 754) NUCLEATED RED BLOOD CELLS 0 /100 WBC 0-0 (BEAKER) (test code = 413) NEUTROPHILS RELATIVE PERCENT 73 % (BEAKER) (test code = 429) LYMPHOCYTES RELATIVE PERCENT 16 % (BEAKER) (test code = 430) MONOCYTES RELATIVE PERCENT 9 % (BEAKER) (test code = 431) EOSINOPHILS RELATIVE PERCENT 2 % (BEAKER) (test code = 432) BASOPHILS RELATIVE PERCENT 0 % (BEAKER) (test code = 437) NEUTROPHILS ABSOLUTE COUNT 3.78 K/ L 1.78-5.38 (BEAKER) (test code = 670) LYMPHOCYTES ABSOLUTE COUNT 0.83 K/ L 1.32-3.57 L (BEAKER) (test code = 414) MONOCYTES ABSOLUTE COUNT (BEAKER) 0.46 K/ L 0.30-0.82 (test code = 415) EOSINOPHILS ABSOLUTE COUNT 0.09 K/ L 0.04-0.54 (BEAKER) (test code = 416) BASOPHILS ABSOLUTE COUNT (BEAKER) 0.02 K/ L 0.01-0.08 (test code = 417) IMMATURE GRANULOCYTES-RELATIVE 0 % 0-1 PERCENT (BEAKER) (test code = 2801) CALCIUM, [id number] 03:02:00 Test Item Value Reference Range Interpretation Comments CALCIUM IONIZED (BEAKER) (test 1.15 mmol/L 1.12-1.27 code = 698) PH, BLOOD (BEAKER) (test code = 7.42 1810) CT, [id number] 18:18:00Unlisted Reason for Exam - Click Yes and Enter Reason Below->YesUnlisted Reason for Exam->unexplained weight lossWill this procedure require oral contrast?->Yes [facility] 1950 Sex: MFINAL REPORT TECHNIQUE: CT of the chest, abdomen, and pelvis WITH in travenous contrast and WITH oral contrast. Dose modulation, iterative reconstruction, and/or weight-based adjustment of the mA/kV was utilized to reduce the radiation dose to as low as reasonably achievable. INDICATION: Unlisted Reason for Examunexplained weight loss COMPARISON: None. FINDINGS: LINES/TUBES: None. LUNGS AND AIRWAYS: Central airways are patent. There is bibasilar atelectasis..PLEURA: The pleural spaces are clear.HEART AND MEDIASTINUM: The visualized thyroid gland is normal. No significant mediastinal, hilar, or axillary lymphadenopathy. The heart and pericardium are within normal limits. HEPATOBILIARY: 1.8 cm hypoattenuating mass in the dome of the liver.. Gallbladder is unremarkable. No biliary ductal dilatation.SPLEEN: No splenomegaly.PANCREAS: No focal masses or ductal dilatation. ADRENALS: No adrenal nodules.KIDNEYS/URETERS: No hydronephrosis, stones, or solid mass lesions.PELVIC ORGANS/BLADDER: Dependent hyperdense material layering within the urinary bladder. PERITONEUM/RETROPERITONEUM: Small volume free intraperitoneal fluid. No focal fluid collection to.LYMPH NODES: No lymphadenopathy.VESSELS: Atherosclerotic changes throughout the abdominal aorta and branch vessels. No evidence of aneurysmal dilation.. GI TRACT: No distention or wall thickening. Appendix is normal. BONES AND SOFT TISSUES: Degenerative changes in the spine. No suspicious osseous lesion.. IMPRESSION:Indeterminate hypodense mass in the dome of the right hepatic lobe. Further evaluation with liver mass protocol MRI is suggested for characterization. Small volume ascites. Numerous layering bladder calculi. No acute intrathoracic abnormality. Signed: Gerard Chi MDReport Verified Date/Time: 01/02/2021 18:18:23 Reading Location: [facility] C013Y CT Body Reading Room CT, CHEST, WITH [id number] 18:18:00 Unlisted Reason for Exam - Click Yes and Enter Reason Below->YesUnlisted Reason for Exam->unexplained weight loss [facility] : 1950 Sex: MFINAL REPORT TECHNIQUE: CT of the chest, abdomen, and pelvis WITH in travenous contrast and WITH oral contrast. Dose modulation, iterative reconstruction, and/or weight-based adjustment of the mA/kV was utilized to reduce the radiation dose to as low as reasonably achievable. INDICATION: Unlisted Reason for Examunexplained weight loss COMPARISON: None. FINDINGS: LINES/TUBES: None. LUNGS AND AIRWAYS: Central airways are patent. There is bibasilar atelectasis..PLEURA: The pleural spaces are clear.HEART AND MEDIASTINUM: The visualized thyroid gland is normal. No significant mediastinal, hilar, or axillary lymphadenopathy. The heart and pericardium are within normal limits. HEPATOBILIARY: 1.8 cm hypoattenuating mass in the dome of the liver.. Gallbladder is unremarkable. No biliary ductal dilatation.SPLEEN: No splenomegaly.PANCREAS: No focal masses or ductal dilatation. ADRENALS: No adrenal nodules.KIDNEYS/URETERS: No hydronephrosis, stones, or solid mass lesions.PELVIC ORGANS/BLADDER: Dependent hyperdense material layering within the urinary bladder. PERITONEUM/RETROPERITONEUM: Small volume free intraperitoneal fluid. No focal fluid collection to.LYMPH NODES: No lymphadenopathy.VESSELS: Atherosclerotic changes throughout the abdominal aorta and branch vessels. No evidence of aneurysmal dilation.. GI TRACT: No distention or wall thickening. Appendix is normal. BONES AND SOFT TISSUES: Degenerative changes in the spine. No suspicious osseous lesion.. IMPRESSION:Indeterminate hypodense mass in the dome of the right hepatic lobe. Further evaluation with liver mass protocol MRI is suggested for characterization. Small volume ascites. Numerous layering bladder calculi. No acute intrathoracic abnormality. Signed: Gerard Chi MDReport Verified Date/Time: 01/02/2021 18:18:23 Reading Location: [facility] B1 C013Y CT Body Reading Room Hemoglobin [id number] 10:43:00 Test Item Value Reference Range Interpretation Comments Hemoglobin A1C (test code = 4548-4) 6.0 % 4.3-6.1 Lab Interpretation (test code = Normal 31693-3) [facility] [id number] 10:43:00 Test Item Value Reference Range Interpretation Comments HEMOGLOBIN A1C (BEAKER) (test code = 6.0 % 4.3-6.1 368) [id number] 09:48:00 Test Item Value Reference Range Interpretation Comments Ferritin (test code = 47.27 ng/mL 5.00-275.00 2276-4) TOSHIA (test code = TOSHIA) Gel Coat Sprayer ID - SELVIN M Lab Interpretation (test Normal code = 16448-0) [facility] T4 If [id number] 09:48:00 Test Item Value Reference Range Interpretation Comments TSH (test code = 0.509 See_Comment [Automated 21858-9) message] The system which generated this result transmit chrystal reference range : 0.350 - 4.940 uIU/mL. The reference range was not used to interpret this result as normal/abnormal . TOSHIA (test code = TOSHIA) Gel Coat Sprayer ID Lety Meeks Lab Interpretation Normal (test code = 07134-9) [facility]ERR[facility]IN2021-[facility] 09:48:00 Test Item Value Reference Range Interpretation Comments FERRITIN (BEAKER) (test code = 47.27 ng/mL 5.00-275.00 361) Gel Coat Sprayer ID - SELVIN MTSH/FREE T4 IF [id number] 09:48:00 Test Item Value Reference Range Interpretation Comments THYROID STIMULATING HORMONE 0.509 uIU/mL 0.350-4.940 (BEAKER) (test code = 772) Gel Coat Sprayer ID - SELVIN MCOMPREHENSIVE METABOLIC [id number] 09:28:00 Test Item Value Reference Range Interpretation Comments TOTAL PROTEIN 5.4 gm/dL 6.0-8.3 L Specimen sligh tly (BEAKER) (test code = hemoly zed 770) ALBUMIN (BEAKER) 3.1 g/dL 3.5-5.0 L Specimen sl ightly (test code = 1145) hemolyzed ALKALINE PHOSPHATASE 40 U/L 40-150 (BEAKER) (test code = 346) BILIRUBIN TOTAL 0.4 mg/dL 0.2-1.2 Specimen sli ghtly (BEAKER) (test code = hemoly zed 377) SODIUM (BEAKER) (test 140 meq/L 136-145 code = 381) POTASSIUM (BEAKER) 4.5 meq/L 3.5-5.1 Specimen slightly (test code = 379) hemolyzed CHLORIDE (BEAKER) 105 meq/L 98-107 (test code = 382) CO2 (BEAKER) (test 28 meq/L 22-29 code = 355) BLOOD UREA NITROGEN 25 mg/dL 7-21 H (BEAKER) (test code = 354) CREATININE (BEAKER) 0.86 mg/dL 0.57-1.25 Specimen slightly (test code = 358) hemolyzed GLUCOSE RANDOM 117 mg/dL 70-105 H (BEAKER) (test code = 652) CALCIUM (BEAKER) 8.6 mg/dL 8.4-10.2 (test code = 697) AST (SGOT) (BEAKER) 19 U/L 5-34 Specimen slightly (test code = 353) hemolyzed ALT (SGPT) (BEAKER) 12 U/L 6-55 Specimen slightly (test code = 347) hemolyzed EGFR (BEAKER) (test 88 mL/min/1.73 ESTIMA CHRYSTAL GFR IS code = 1092) sq m NOT ACCURATE CREATININE CLEARANCE IN PREDICTING GLOMERULAR FILTRATION RATE . ESTIMATED GFR I S NOT APPLICABLE FOR DIALYSIS PATIEN TS. Gel Coat Sprayer ID - SELVIN [id number] 09:28:00 Test Item Value Reference Range Interpretation Comments PHOSPHORUS (BEAKER) 3.7 mg/dL 2.3-4.7 Specimen slightly (test code = 604) hemolyzed Gel Coat Sprayer ID Lety Thompson, TIBC, % sat. (without ferritin)2021-01-02 09:27:00 Test Item Value Reference Range Interpretation Comments Iron (test code = 2498-4) 32.0 ug/dL 40.0-160.0 L TIBC (test code = 2500-7) 270 ug/dL 250-450 Iron % Saturation (test 12 % 20-55 L code = 2502-3) TOSHIA (test code = TOSHIA) Gel Coat Sprayer ID - SELVIN Meeks Lab Interpretation (test Abnormal code = 55218-4) [facility], TIBC, % SAT. (WITHOUT FERRITIN)2021-01-02 09:27:00 Test Item Value Reference Range Interpretation Comments IRON (BEAKER) (test code = 547) 32.0 ug/dL 40.0-160.0 L TOTAL IRON BINDING CAPACITY 270 ug/dL 250-450 (BEAKER) (test code = 769) IRON % SATURATION (2) (BEAKER) 12 % 20-55 L (test code = 2590) Gel Coat Sprayer ID - SELVIN MCALCIUM, [id number] 09:10:00 Test Item Value Reference Range Interpretation Comments CALCIUM IONIZED (BEAKER) (test 1.12 mmol/L 1.12-1.27 code = 698) PH, BLOOD (BEAKER) (test code = 7.39 1810) Vitamin D, 25-[id number] 17:52:00 Test Item Value Reference Range Interpretation Comments Vitamin D 25-Hydroxy 7.7 ng/mL 6.6-49.9 (test code = 2764) TOSHIA (test code = TOSHIA) Effective 02/08/2017: Reference Range ChangeNew: 6.6-49.9 ng/mL Previous: 13.0-47.8 ng/mL Recommended Vitamin D Target Range: 30.0-40.0 ng/mLOperator ID - DB Lab Interpretation (test Normal code = 72681-4) [facility]IT[facility]IN D, [id number] 17:52:00 Test Item Value Reference Range Interpretation Comments VITAMIN D 25-OH (BEAKER) (test code 7.7 ng/mL 6.6-49.9 = 2764) Effective 02/08/2017: Reference Range ChangeNew: 6.6-49.9 ng/mL Previous: 13.0-47.8 ng/mLRecommended Vitamin D Target Range: 30.0-40.0 ng/mLOperator ID - DBVitamin B12 and [id number] 16:56:00 Test Item Value Reference Range Interpretation Comments Vitamin B12 (test 280 pg/mL 213-816 code = 2132-9) Folate (test code = 5.90 ng/mL See_Comment L [Automa chrystal 2284-8) message] The system which generated this result transmit chrystal reference range : >=7.00. The reference range was not used to interpret this result as normal/abnormal . TOSHIA (test code = TOSHIA) Gel Coat Sprayer ID - DB Lab Interpretation Abnormal (test code = 43621-0) [facility]IT[facility]IN B12 AND [id number] 16:56:00 Test Item Value Reference Range Interpretation Comments VITAMIN B12 (BEAKER) 280 pg/mL 213-816 (test code = 774) FOLATE (BEAKER) 5.90 ng/mL See_Comment L [Automated message] (test code = 362) The system which generated this result transmitted ref erence range: >=7.00. The reference range was not used to interpr et this result as normal/abnormal . Gel Coat Sprayer ID - DBIRON, TIBC, % SAT. (WITHOUT FERRITIN)2021-01-01 16:21:00 Test Item Value Reference Range Interpretation Comments IRON (BEAKER) (test code = 547) 44.0 ug/dL 40.0-160.0 TOTAL IRON BINDING CAPACITY 264 ug/dL 250-450 (BEAKER) (test code = 769) IRON % SATURATION (2) (BEAKER) 17 % 20-55 L (test code = 2590) Gel Coat Sprayer ID - DB2D Echo W/Doppler(CW/PW/Color)2021-01-01 14:05:43Ejection FractionSLEH ECHO HEARTLAB MKCKESSON [facility] [id number] 11:50:00 Test Item Value Reference Range Interpretation Comments Prealbumin (test code = 20 mg/dL 14-45 08955-8) TOSHIA (test code = TOSHIA) Gel Coat Sprayer ID - DB Lab Interpretation (test Normal code = 52569-1) [facility] HospitalPREALBUMIN2021-09-03 11:50:00 Test Item Value Reference Range Interpretation Comments PREALBUMIN (BEAKER) (test code = 20 mg/dL 1445 586) Gel Coat Sprayer ID - DBTSH/FREE T4 IF [id number] 09:00:00 Test Item Value Reference Range Interpretation Comments THYROID STIMULATING HORMONE 0.479 uIU/mL 0.350-4.940 (BEAKER) (test code = 772) Gel Coat Sprayer ID - DBLipid [id number] 05:59:00 Test Item Value Reference Range Interpretation Comments Triglycerides (test 70 mg/dL code = 2571-8) Cholesterol (test code 160 mg/dL = 2093-3) HDL (test code = 44 mg/dL 2084-9) LDL Calculated (test 102 mg/dL code = 84728-9) TOSHIA (test code = TOSHIA) Triglyceride Reference Range: Low Risk <150 Borderline 150-199 High Risk 200-499 Very High Risk >=500 Cholesterol Reference Range: Low Risk <200 Borderline 200-239 High Risk >240 HDL Cholesterol Reference Range: Low Risk >=60 High Risk <40 LDL Cholesterol Reference Range: Optimal <100 Near Optimal 100-129 Borderline 130-159 High 160-189 Very High >=190 Gel Coat Sprayer ID - COREY Ware [facility] HospitalHepatic function [id number] 05:59:00 Test Item Value Reference Range Interpretation Comments Protein, Total (test 5.1 See_Comment L [Autom ated code = 2885-2) message] The system which generated this result transmit chrystal reference range : 6.0 - 8.3 gm/dL . The reference range was not u sed to interpret th is result as normal/abnormal . Albumin (test code = 3.0 g/dL 3.5-5.0 L 23752-5) Total Bilirubin (test 0.4 mg/dL 0.2-1.2 code = 1974-2) Bilirubin, Direct 0.2 mg/dL 0.1-0.5 (test code = 1968-7) Alkaline Phosphatase 39 U/L 40-150 L (test code = 6768-6) AST (test code = 14 U/L 5-34 1920-8) ALT (test code = 8 U/L 6-55 1742-6) TOSHIA (test code = TOSHIA) Gel Coat Sprayer ID Lety Ware Lab Interpretation Abnormal (test code = 74007-4) [facility] HospitalBASIC METABOLIC [id number] 05:59:00 Test Item Value Reference Range Interpretation Comments SODIUM (BEAKER) 137 meq/L 136-145 (test code = 381) POTASSIUM (BEAKER) 4.3 meq/L 3.5-5.1 (test code = 379) CHLORIDE (BEAKER) 105 meq/L 98-107 (test code = 382) CO2 (BEAKER) (test 25 meq/L 22-29 code = 355) BLOOD UREA NITROGEN 21 mg/dL 7-21 (BEAKER) (test code = 354) CREATININE (BEAKER) 0.93 mg/dL 0.57-1.25 (test code = 358) GLUCOSE RANDOM 80 mg/dL 70-105 (BEAKER) (test code = 652) CALCIUM (BEAKER) 8.4 mg/dL 8.4-10.2 (test code = 697) EGFR (BEAKER) (test 80 mL/min/1.73 ESTIMA CHRYSTAL GFR IS code = 1092) sq m NOT ACCURATE CREATININE CLEARANCE IN PREDICTING GLOMERULAR FILTRATION RATE . ESTIMATED GFR I S NOT APPLICABLE FOR DIALYSIS PATIEN TS. Gel Coat Sprayer ID - COREY [id number] 05:59:00 Test Item Value Reference Range Interpretation Comments MAGNESIUM (BEAKER) (test code = 2.7 mg/dL 1.6-2.6 H 627) Gel Coat Sprayer ID - COREY WLIPID [id number] 05:59:00 Test Item Value Reference Range Interpretation Comments TRIGLYCERIDES (BEAKER) (test code = 70 mg/dL 540) CHOLESTEROL (BEAKER) (test code = 160 mg/dL 631) HDL CHOLESTEROL (BEAKER) (test code 44 mg/dL = 976) LDL CHOLESTEROL CALCULATED (BEAKER) 102 mg/dL (test code = 633) Triglyceride Reference Range: Low Risk <150 Borderline 150-199 High Risk 200-499 Very High Risk >=500Cholesterol Reference Range: Low Risk <200 Borderline 200-239 High Risk >240HDL Cholesterol Reference Range: Low Risk >=60 High Risk <40LDL Cholesterol Reference Range: Optimal <100 Near Optimal 100-129 Borderline 130-159 High 160-189 Very High >=190 Gel Coat Sprayer ID Lety NICOLEWHEPATIC FUNCTION [id number] 05:59:00 Test Item Value Reference Range Interpretation Comments TOTAL PROTEIN (BEAKER) (test code = 5.1 gm/dL 6.0-8.3 L 770) ALBUMIN (BEAKER) (test code = 1145) 3.0 g/dL 3.5-5.0 L BILIRUBIN TOTAL (BEAKER) (test code 0.4 mg/dL 0.2-1.2 = 377) BILIRUBIN DIRECT (BEAKER) (test 0.2 mg/dL 0.1-0.5 code = 706) ALKALINE PHOSPHATASE (BEAKER) (test 39 U/L 40-150 L code = 346) AST (SGOT) (BEAKER) (test code = 14 U/L 5-34 353) ALT (SGPT) (BEAKER) (test code = 8 U/L 6-55 347) Gel Coat Sprayer ID - COREY FOURNIERigh Sensitivity Troponin [id number] 05:34:00 Test Item Value Reference Range Interpretation Comments Troponin I HS 5 pg/ml See_Comment [Automated (test code = message] The 36051-4) system which generated this result transmitted reference range : <=35. The reference range was not used to interpret this result as normal/abnormal . TOSHIA (test code = Gel Coat Sprayer ID - TOSHIA) COREY [email or web address] MOLDER WAX BALL STAT High Sensitivity Troponin-I results should be used in conjunction with other diagnostic information such as ECG, clinical observations and information, and patient symptoms to aid in the diagnosis of [place]. Lab Interpretation Normal (test code = 31460-8) [facility] TROPONIN [id number] 05:34:00 Test Item Value Reference Range Interpretation Comments HIGH SENSITIVITY 5 pg/ml See_Comment [Automated message] TROPONIN I (test code = The system which [id number]) generated this result transmitted ref erence range: <=35. Th e reference range was not used to interpr et this result as normal/abnormal . Gel Coat Sprayer ID - [email or web address] MOLDER WAX BALL STAT High Sensitivity Troponin-I results should be used in conjunction with other diagnostic information such as ECG, clinical observations and information, and patient symptoms to aid in the diagnosis of [place].CBC W/PLT COUNT & AUTO [id number] 05:16:00 Test Item Value Reference Range Interpretation Comments WHITE BLOOD CELL COUNT (BEAKER) 4.5 K/ L 3.5-10.5 (test code = 775) RED BLOOD CELL COUNT (BEAKER) 3.32 M/ L 4.63-6.08 L (test code = 761) HEMOGLOBIN (BEAKER) (test code = 9.5 GM/DL 13.7-17.5 L 410) HEMATOCRIT (BEAKER) (test code = 29.0 % 40.1-51.0 L 411) MEAN CORPUSCULAR VOLUME (BEAKER) 87.3 fL 79.0-92.2 (test code = 753) MEAN CORPUSCULAR HEMOGLOBIN 28.6 pg 25.7-32.2 (BEAKER) (test code = 751) MEAN CORPUSCULAR HEMOGLOBIN CONC 32.8 GM/DL 32.3-36.5 (BEAKER) (test code = 752) RED CELL DISTRIBUTION WIDTH 12.8 % 11.6-14.4 (BEAKER) (test code = 412) PLATELET COUNT (BEAKER) (test 151 K/CU MM 150-450 code = 756) MEAN PLATELET VOLUME (BEAKER) 10.2 fL 9.4-12.4 (test code = 754) NUCLEATED RED BLOOD CELLS 0 /100 WBC 0-0 (BEAKER) (test code = 413) NEUTROPHILS RELATIVE PERCENT 66 % (BEAKER) (test code = 429) LYMPHOCYTES RELATIVE PERCENT 20 % (BEAKER) (test code = 430) MONOCYTES RELATIVE PERCENT 11 % (BEAKER) (test code = 431) EOSINOPHILS RELATIVE PERCENT 3 % (BEAKER) (test code = 432) BASOPHILS RELATIVE PERCENT 0 % (BEAKER) (test code = 437) NEUTROPHILS ABSOLUTE COUNT 2.92 K/ L 1.78-5.38 (BEAKER) (test code = 670) LYMPHOCYTES ABSOLUTE COUNT 0.88 K/ L 1.32-3.57 L (BEAKER) (test code = 414) MONOCYTES ABSOLUTE COUNT (BEAKER) 0.47 K/ L 0.30-0.82 (test code = 415) EOSINOPHILS ABSOLUTE COUNT 0.15 K/ L 0.04-0.54 (BEAKER) (test code = 416) BASOPHILS ABSOLUTE COUNT (BEAKER) 0.02 K/ L 0.01-0.08 (test code = 417) IMMATURE GRANULOCYTES-RELATIVE 0 % 0-1 PERCENT (BEAKER) (test code = 2801) HIGH SENSITIVITY TROPONIN [id number] 00:46:00 Test Item Value Reference Range Interpretation Comments HIGH SENSITIVITY 11 pg/ml See_Comment [Automated message] TROPONIN I (test code = The system which [id number]) generated this result transmitted ref erence range: <=35. Th e reference range was not used to int erpret this result as normal/abnormal . Gel Coat Sprayer ID - [email or web address] MOLDER WAX BALL STAT High Sensitivity Troponin-I results should be used in conjunctionwith other diagnostic information such as ECG, clinical observations and information, and patient symptoms to aid in the diagnosis of [place].
[2021-05-09] MEDS ORDERED: NA CHLORIDE 0.9% 1,000 ML ONE (14:22)
[2021-05-09 14:23] LABS: Absolute Lymphocytes (CBC) 0.3 K/uL (0.7-4.9); Hematocrit 32.1 % (39.6-49.0); Lymphocytes % 5.1 % (15.3-44.8); MPV 7.4 fL (7.6-11.3)
[2021-05-09 14:36] LABS: Protime INR 1.17
[2021-05-09 14:42] LABS: ALT/SGPT 20 U/L (12-78); AST/SGOT 20 U/L (15-37); Albumin 3.5 g/dL (3.4-5.0); Alkaline Phosphatase 57 U/L (45-117); Amylase 26 U/L (25-115); BUN Blood Urea Nitrogen 31 mg/dL (7-18); Bicarbonate 27 mmol/L (21-32); Bilirubin Direct 0.1 mg/dL (0-0.2); Bilirubin Total 0.4 mg/dL (0.2-1.0); Creatine Phosphokinase 108 U/L (39-308); Glucose Level 91 mg/dL (74-106); Lipase 45 U/L (73-393); Potassium 4.2 mmol/L (3.5-5.1); Protein, Total 7.2 g/dL (6.4-8.2); Sodium Level 138 mmol/L (136-145); Troponin (Emerg Dept Use Only) < 0.02 ng/mL (0.0-0.045)
--- NOTE | 2021-05-09 14:46 | RAD REPORT ---
EXAM DESCRIPTION: CT - Head C Spine Mpr Wo Con - 05/09/2021 2:34 pm CLINICAL HISTORY: Numbness COMPARISON: 2017 TECHNIQUE: Computed axial tomography of the head and cervical spine was obtained. Sagittal and coronal reconstruction was performed. All CT scans are performed using dose optimization technique as appropriate and may include automated exposure control or mA/KV adjustment according to patient size. FINDINGS: An intracranial bleed is not seen. The ventricles are normal in caliber. An extra-axial fl uid collection is not noted.Fluid within the visualized sinuses and mastoids is not seen A cervical fracture is not visualized. No dislocation is noted. Mild posterior subluxation C3 on C4 without significant change. Broad-based central osteophyte result s in moderate narrowing of the thecal sac. Additional spondylosis results in moderate narrowing of th e neural foramina bilaterally. IMPRESSION: No acute intracranial abnormality is seen. A cervical fracture is not visualized. 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 If the patient continues to have symptoms to suggest intracranial /spinal cord/ spinal canal patholog y then MRI would be recommended
--- NOTE | 2021-05-09 16:08 | RAD REPORT ---
EXAM DESCRIPTION: Scotty Single View05/09/2021 3:57 pm CLINICAL HISTORY: Congestion COMPARISON: December 2020 FINDINGS: The lungs appear clear of acute infiltrate. The heart is mildly enlarged. Pacemaker leads are in place. IMPRESSION: No acute abnormalities displayed
--- NOTE | 2021-05-09 17:04 | ER ---
Nurse's Notes [facility] Name: Thong Mar Age: 70 yrs Sex: Male : 1950 Arrival Date: 05/09/2021 Time: 13:42 Bed 13 Private MD: Diagnosis: Hypotension, unspecified-RESOLVED Presentation: 05/09 13:42 Chief complaint: EMS states: Pt brought in by EMS for near syncopal episode. States pt ic1 fell d/t low bp. Denies hitting his head. Pt stated, "I always fall, I fell 3 months ago and broke my hip" Pt currently denies pain. AAOx2. GCS 15. Coronavirus screen: Client denies travel out of the [place] in the last 14 days. Ebola Screen: No symptoms or risks identified at this time. Initial Sepsis Screen: Does the patient meet any 2 criteria? No. Patient's initial sepsis screen is negative. Initial Sepsis Screen: Does the patient have a suspected source of infection? No. Patient's initial sepsis screen is negative. Risk Assessment: Do you want to hurt yourself or someone else? Patient reports no desire to harm self or others. Onset of symptoms was May 09, 2021. 13:42 Method Of Arrival: EMS: [facility] ic1 13:42 Acuity: GAYATRI 3 ic1 Triage Assessment: 13:42 General: Appears in no apparent distress. comfortable. Pain: Complains of pain in neck. ic1 EENT: No deficits noted. Neuro: No deficits noted. Cardiovascular: No deficits noted. Respiratory: No deficits noted. GI: No deficits noted. : No deficits noted. Derm: No deficits noted. Musculoskeletal: No deficits noted. - Immunization history:: Client reports receiving the 2nd dose of the Covid vaccine, Last tetanus immunization: Flu vaccine is up to date. - Social history:: Smoking status: unknown. - Family history:: not pertinent. Screenin:50 Abuse screen: Denies threats or abuse. Denies injuries from another. Nutritional ic1 screening: No deficits noted. Tuberculosis screening: No symptoms or risk factors identified. Fall Risk Fall in past 12 months (25 points). Exposure risk/Travel Screening: None identified. Assessment: 14:16 Reassessment:. General: Appears in no apparent distress. comfortable, Behavior is calm, ic1 cooperative. Pain: Complains of pain in neck. Neuro: No deficits noted. Cardiovascular: No deficits noted. Respiratory: No deficits noted. GI: No deficits noted. : No deficits noted. EENT: No deficits noted. Derm: No deficits noted. Musculoskeletal: Weakness. 15:39 Reassessment: EKG completed by this RN and given to provider. ic1 Vital Signs: 13:42 BP 127 / 78; Pulse 71; Resp 18; Temp 98.3(O); Pulse Ox 99% on R/A; Weight 56.7 kg; ic1 Height 72 in. (182.88 cm); 13:50 BP 127 / 78; Pulse 71; Resp 18; Temp 98.3(O); Pulse Ox 99% on R/A; ic1 15:18 BP 129 / 70; Pulse 70; Resp 18; Pulse Ox 99% on R/A; ic1 17:26 BP 136 / 81; Pulse 71; Resp 18; Pulse Ox 99% on R/A; ic1 18:09 BP 149 / 81; Pulse 70; Resp 18; Pulse Ox 96% on R/A; ic1 13:42 Body Mass Index 16.95 (56.70 kg, 182.88 cm) ic1 Vitals: 13:50 Cardiac Rhythm Assessment Paced. ic1 [place] Coma Score: 13:50 Eye Response: spontaneous(4). Verbal Response: oriented(5). Motor Response: obeys ic1 commands(6). Total: 15. ED Course: 13:42 Patient arrived in ED. eb 13:42 Donald Ramos MD is Attending Physician. ma2 13:42 Arm band placed on right wrist. ic1 13:46 Triage completed. ic1 13:50 Patient has correct armband on for positive identification. Bed in low position. Call ic1 light in reach. Side rails up X2. 14:16 Noise minimized. Lights dimmed. Warm blanket given. ic1 14:16 Inserted saline lock: 20 gauge in right upper arm, using aseptic technique. ic1 14:19 Blood Culture Sent. ic1 14:19 Creatine Phosphokinase Sent. ic1 14:19 CBC with Automated Diff Sent. ic1 14:19 Amylase Sent. ic1 14:19 Basic Metabolic Panel Sent. ic1 14:23 Ckmb Sent. ic1 14:23 LFT's Sent. ic1 14:23 Lactate Sent. ic1 14:23 Lipase Sent. ic1 14:23 Procalcitonin Sent. ic1 14:23 Protime (+inr) Sent. ic1 14:23 Ptt, Activated Sent. ic1 14:23 Troponin (emerg Dept Use Only) Sent. ic1 14:24 SARS-COV-2 RT PCR (Document "Date of Onset" if Symptomatic) Sent. ic1 14:34 CT Head C Spine In Process Unspecified. EDMS 15:57 Chest Single View XRAY In Process Unspecified. EDMS 19:57 Joao Jimenez, RN is Primary Nurse. sv1 19:59 No provider procedures requiring assistance completed. IV discontinued. sv1 Administered Medications: 14:24 Drug: NS 0.9% 1000 ml Route: IV; Rate: 1 bolus; Site: right upper arm; Delivery: ic1 Primary tubing; 15:15 Follow up: IV Status: Completed infusion; IV Intake: 1000ml ic1 Intake: 15:15 IV: 1000ml; Total: 1000ml. ic1 Outcome: 17:03 Discharge ordered by . la2 19:59 Discharged to home via wheelchair. sv1 19:59 Condition: stable 19:59 Discharge instructions given to patient. 20:17 Patient left the ED. cg Signatures: Dispatcher [employer] Megan Garza, RN RN Donald Ramos MD MD ma2 Botello, Elizabeth eb Villicano, Steven, RN RN sv1 Bridget Brown RN RN ic1
--- NOTE | 2021-05-09 17:05 | EDPHYS ---
Physician Documentation [facility] Name: Thong Mar Age: 70 yrs Sex: Male : 1950 Arrival Date: 05/09/2021 Time: 13:42 Bed 13 Private MD: ED Physician Donald Ramos HPI: 05/09 14:09 This 70 yrs old Male presents to ER via EMS with complaints of Syncope,. ma2 14:09 Onset: The symptoms/episode began/occurred suddenly, gradually, 1 hour(s) ago. ma2 Associated signs and symptoms: Pertinent negatives: ataxia, combativeness, diaphoresis, palpitations, , seizure, tingling. Severity of symptoms: At their worst the symptoms were mild in the emergency department the symptoms are unchanged. The patient has not recently seen a physician. Patient takes midodrine for low blood pressure chronically, he started cutting down midodrine dose because he noticed blood pressure being high over the last 3 days, this morning he has been lightheaded, and thinks he might have passed out, family called EMS because they found him on the floor, when EMS arrived systolic blood pressure was 90. At this time blood pressure is 127/78, patient is awake alert with no symptom or complaint at this time. No. - Immunization history:: Client reports receiving the 2nd dose of the Covid vaccine, Last tetanus immunization: Flu vaccine is up to date. - Social history:: Smoking status: unknown. - Family history:: not pertinent. ROS: 14:09 Constitutional: Negative for fever, chills, and weight loss. ma2 14:09 All other systems are negative. Exam: 14:09 Constitutional: This is a well developed, well nourished patient who is awake, alert, ma2 and in no acute distress. Head/Face: Normocephalic, atraumatic. Eyes: Pupils equal round and reactive to light, extra-ocular motions intact. Lids and lashes normal. Conjunctiva and sclera are non-icteric and not injected. Cornea within normal limits. Periorbital areas with no swelling, redness, or edema. ENT: Nares patent. No nasal discharge, no septal abnormalities noted. Tympanic membranes are normal and external auditory canals are clear. Oropharynx with no redness, swelling, or masses, exudates, or evidence of obstruction, uvula midline. Mucous membranes moist. Neck: Trachea midline, no thyromegaly or masses palpated, and no cervical lymphadenopathy. Supple, full range of motion without nuchal rigidity, or vertebral point tenderness. No Meningismus. Chest/axilla: Normal chest wall appearance and motion. Nontender with no deformity. No lesions are appreciated. Cardiovascular: Regular rate and rhythm with a normal S1 and S2. No gallops, murmurs, or rubs. Normal PMI, no JVD. No pulse deficits. Respiratory: Lungs have equal breath sounds bilaterally, clear to auscultation and percussion. No rales, rhonchi or wheezes noted. No increased work of breathing, no retractions or nasal flaring. Abdomen/GI: Soft, non-tender, with normal bowel sounds. No distension or tympany. No guarding or rebound. No evidence of tenderness throughout. Skin: Warm, dry with normal turgor. Normal color with no rashes, no lesions, and no evidence of cellulitis. MS/ Extremity: Pulses equal, no cyanosis. Neurovascular intact. Full, normal range of motion. Neuro: Awake and alert, GCS 15, oriented to person, place, time, and situation. Cranial nerves II-XII grossly intact. Motor strength 5/5 in all extremities. Sensory grossly intact. Cerebellar exam normal. Normal gait. Vital Signs: 13:42 BP 127 / 78; Pulse 71; Resp 18; Temp 98.3(O); Pulse Ox 99% on R/A; Weight 56.7 kg; ic1 Height 72 in. (182.88 cm); 13:50 BP 127 / 78; Pulse 71; Resp 18; Temp 98.3(O); Pulse Ox 99% on R/A; ic1 15:18 BP 129 / 70; Pulse 70; Resp 18; Pulse Ox 99% on R/A; ic1 17:26 BP 136 / 81; Pulse 71; Resp 18; Pulse Ox 99% on R/A; ic1 18:09 BP 149 / 81; Pulse 70; Resp 18; Pulse Ox 96% on R/A; ic1 13:42 Body Mass Index 16.95 (56.70 kg, 182.88 cm) ic1 [place] Coma Score: 13:50 Eye Response: spontaneous(4). Verbal Response: oriented(5). Motor Response: obeys ic1 commands(6). Total: 15. MDM: 13:42 Patient medically screened. 2 14:09 Differential diagnosis: cardiac arrhythmia, generalized weakness, hypovolemia, ma2 idiopathic dizziness, near-syncope, vertigo. 17:01 Data reviewed: vital signs, nurses notes, EMS record, alf records, diagnostic ma2 data from outside facility, old medical records, lab test result(s). Counseling: I had a detailed discussion with the patient and/or guardian regarding: the historical points, exam findings, and any diagnostic results supporting the discharge/admit diagnosis, the presence of at least one elevated blood pressure reading (>120/80) during this emergency department visit, lab results, radiology results, the need for outpatient follow up. Response to treatment: the patient's symptoms have resolved after treatment. ED course: Work-up is unremarkable to include CBC syncope work-up troponin EKG, chest x-ray and CT head all came back with no acute abnormalities. Blood pressure has been above 120s over 70s throughout his stay in the ER, patient does not have any symptoms. Low blood pressure at home is likely due to medication down-regulation which patient has been doing over the last 2 days as states in hpi . 05/09 13:43 Order name: Amylase, Serum [facility] 05/09 13:43 Order name: Basic Metabolic Panel [facility] 05/09 13:43 Order name: Blood Culture Adult (2) ok05/09 13:43 Order name: CBC with Diff [facility] 05/09 13:43 Order name: CPK [facility] 05/09 13:43 Order name: Ckmb; Complete Time: 16:12 [facility] 05/09 13:43 Order name: LFT's; Complete Time: 16:12 [facility] 05/09 13:43 Order name: Lactate; Complete Time: 16:12 [facility] 05/09 13:43 Order name: Lipase; Complete Time: 16:12 [facility] 05/09 13:43 Order name: Procalcitonin; Complete Time: 16:12 [facility] 05/09 13:43 Order name: Protime (+inr); Complete Time: 16:12 [facility] 05/09 13:43 Order name: Ptt, Activated; Complete Time: 16:12 [facility] 05/09 13:43 Order name: Troponin (emerg Dept Use Only); Complete Time: 16:12 ok2 05/09 13:43 Order name: Chest Single View XRAY; Complete Time: 16:12 ok2 05/09 13:43 Order name: Accucheck ok2 05/09 13:43 Order name: Cardiac monitoring ok2 05/09 13:43 Order name: EKG - Nurse/Tech; Complete Time: 15:16 ok2 05/09 13:43 Order name: IV Saline Lock - Large Bore; Complete Time: 14:23 [facility] 05/09 13:43 Order name: Labs collected and sent; Complete Time: 14:23 ok2 05/09 13:43 Order name: O2 Per Protocol; Complete Time: 14:23 [facility] 05/09 13:43 Order name: O2 Sat Monitoring; Complete Time: 14:23 [facility] 05/09 13:43 Order name: SARS-COV-2 RT PCR (Document "Date of Onset" if Symptomatic) [facility] 05/09 13:43 Order name: Amylase; Complete Time: 16:12 [facility] 05/09 13:43 Order name: Basic Metabolic Panel; Complete Time: 16:12 [facility] 05/09 13:43 Order name: Blood Culture [facility] 05/09 13:43 Order name: CBC with Automated Diff; Complete Time: 16:12 [facility] 05/09 13:43 Order name: Creatine Phosphokinase; Complete Time: 16:12 [facility] 05/09 14:11 Order name: CT Head C Spine; Complete Time: 16:12 ok2 05/09 13:43 Order name: Urine Dipstick-Ancillary (obtain specimen) ma2 Administered Medications: 14:24 Drug: NS 0.9% 1000 ml Route: IV; Rate: 1 bolus; Site: right upper arm; Delivery: ic1 Primary tubing; 15:15 Follow up: IV Status: Completed infusion; IV Intake: 1000ml ic1 Disposition Summary: 05/09/21 17:03 Discharge Ordered Location: Home ma2 Condition: Stable ma2 Diagnosis - Hypotension, unspecified - RESOLVED ma2 Followup: ma2 - With: Private Physician - When: Tomorrow - Reason: If symptoms return Discharge Instructions: - Discharge Summary Sheet ma2 - Hypotension, [id number] ma2 Forms: - Medication Reconciliation Form ma2 - Thank You Letter ma2 - Antibiotic Education ma2 - Prescription Opioid Use ma2 Signatures: Dispatcher [employer] EDMS Alzahri, Mohammad, MD MD ma2 Bridget Brown, UBALDO RN ic1
[2021-05-09 20:25] VITALS: TEMP 98.3
[2021-05-09 20:31] VITALS: BP 149/81; O2SAT 96
== END 2021-05-09 20:17 | disposition home or self-care (01) ==
LOC: ER 13:37
DX: U07.1 COVID-19 (principal)
CPT/HCPCS: 93005; 87040; 85025; 80048; 36415; 82150; 82550; 85610; 80076; 83605; 85730; 84484; 82553; 83690; 84145; 70450; 72125; 71045; 96360; 99284; U0003; J7030

== ENCOUNTER 2023-05-23 12:14 | Inpatient (IN) | payer OTHER ==
[2023-05-23 12:42] LABS: Absolute Lymphocytes (CBC) 0.9 K/uL (0.7-4.9); Hematocrit 27.1 % (39.6-49.0); Lymphocytes % 29.9 % (15.3-44.8); MCV 88.1 fL (80-100); MPV 8.3 fL (7.6-11.3); Platelets 132 thou/uL (152-406); RBC Red Blood Cell Count 3.08 M/uL (4.33-5.43)
[2023-05-23 12:58] LABS: Albumin 3.4 g/dL (3.4-5.0); Bilirubin Total 0.3 mg/dL (0.2-1.0); Potassium 5.1 mEq/L (3.5-5.1); Protein, Total 6.5 g/dL (6.4-8.2)
--- NOTE | 2023-05-23 13:37 | RAD REPORT ---
EXAM DESCRIPTION: CTAbdomen Pelvis W Contrast - 05/23/2023 1:23 pm CLINICAL HISTORY: Abdominal pain. painless hematuria COMPARISON: No comparisons TECHNIQUE: Biphasic CT imaging of the abdomen and pelvis was performed with 100 ml non-ionic IV cont rast. All CT scans are performed using dose optimization technique as appropriate and may include automated exposure control or mA/KV adjustment according to patient size. FINDINGS: The lung bases are clear.Pacer wires are present. Superior right lobe liver demonstrates 16 mm cyst. No aggressive liver lesion or biliary dilatation. The spleen, pancreas, adrenal glands and kidneys are within normal limits. No bowel obstruction, free air, free fluid or abscess. The appendix is normal. No evidence of signi ficant lymphadenopathy. There is frondlike asymmetric thickening of the urinary bladder superiorly an d posteriorly measuring up to 15 mm on the right. Direct visualization would be advised for followup Right total hip arthroplasty is noted. Mild lumbar degenerative changes. IMPRESSION: Asymmetric frondlike thickening of the urinary bladder is noted on the right measure up to 15 mm. Advise followup direct visualization with cystoscopy. Elsewhere, no acute or aggressive pro cess is seen.
[2023-05-23 14:02] LABS: Specific Gravity 1.007 (1.005-1.030); Urine Bacteria <20 /HPF (<20); Urine Bilirubin NEGATIVE (Negative); Urine Blood 3+ (OVER) (Negative); Urine Clarity Extremely Turbid (Clear); Urine Color Light-Brown (Yellow); Urine Glucose NEGATIVE (Negative); Urine Protein NEGATIVE (Negative); Urine RBC >50 /HPF (None Seen); Urine Urobilinogen Normal (Normal); Urine pH 5.5 (5.0-7.0)
--- NOTE | 2023-05-23 14:02 | EDPHYS ---
Physician Documentation [facility] Name: Thong Mar Age: 72 yrs Sex: Male : 1950 Arrival Date: 05/23/2023 Time: 12:14 Bed 14 Private MD: ED Physician Brandi Park HPI: 05/23 12:30 This 72 yrs old Male presents to ER via EMS with complaints of Urinary Problem. sp3 12:30 72-year-old male with a history of chronic back pain, status post pacemaker now sp3 presents with painless hematuria x 3 episodes since yesterday late afternoon. Patient states that his blood mixed with urine and not shima blood alone. Patient denies any urinary frequency, dysuria, prior bladder or prostate cancer, family history of the same, increased back pain, abdominal pain, nausea, vomiting, diarrhea, bleeding and other spots or areas, he denies being on any antiplatelet agents or anticoagulants, chest pain, shortness of breath, or any other signs or symptoms on ROS at this time.. 14:00 CT demonstrates bladder origin for bleeding. Hemoglobin is 9. Will administer IV fluids sp3 and obtain type and screen. Coags also pending. Urology consulted and patient will be admitted to hospitalist service.. Historical: - Allergies: 12:24 No Known Drug Allergies; bp - Home Meds: 16:01 indomethacin 50 mg Oral cap 1 cap 3 times per day [Active]; nj1 16:03 gabapentin 300 mg Oral cap 1 cap every day at bedtime [Active]; midodrine 10 mg oral nj1 tablet 0.5 tabs 3 times per day [Active]; - PMHx: 12:24 chronic back pain; hypotension; Pacemaker; bp - Immunization history:: Adult Immunizations up to date. - Social history:: Smoking status: Patient denies any tobacco usage or history of. ROS: 12:32 Constitutional: Negative for fever, chills, and weight loss, Eyes: Negative for injury, sp3 pain, redness, and discharge, ENT: Negative for injury, pain, and discharge, Neck: Negative for injury, pain, and swelling, Cardiovascular: Negative for chest pain, palpitations, and edema, Respiratory: Negative for shortness of breath, cough, wheezing, and pleuritic chest pain, Abdomen/GI: Negative for abdominal pain, nausea, vomiting, diarrhea, and constipation, Back: Negative for injury and pain, MS/Extremity: Negative for injury and deformity, Neuro: Negative for headache, weakness, numbness, tingling, and seizure, Psych: Negative for depression, anxiety, suicide ideation, homicidal ideation, and hallucinations, Allergy/Immunology: Negative for hives, rash, and allergies, Endocrine: Negative for neck swelling, polydipsia, polyuria, polyphagia, and marked weight changes, 12:32 All other systems are negative, Exam: 12:32 Constitutional: This is a well developed, well nourished patient who is awake, alert, sp3 and in no acute distress. Head/Face: Normocephalic, atraumatic. Eyes: Pupils equal round and reactive to light, extra-ocular motions intact. Lids and lashes normal. Conjunctiva and sclera are non-icteric and not injected. Cornea within normal limits. Periorbital areas with no swelling, redness, or edema. Neck: Trachea midline, no thyromegaly or masses palpated, and no cervical lymphadenopathy. Supple, full range of motion without nuchal rigidity, or vertebral point tenderness. No Meningismus. Chest/axilla: Normal chest wall appearance and motion. Nontender with no deformity. No lesions are appreciated. Cardiovascular: Regular rate and rhythm with a normal S1 and S2. No gallops, murmurs, or rubs. Normal PMI, no JVD. No pulse deficits. Respiratory: Lungs have equal breath sounds bilaterally, clear to auscultation and percussion. No rales, rhonchi or wheezes noted. No increased work of breathing, no retractions or nasal flaring. Abdomen/GI: Soft, non-tender, with normal bowel sounds. No distension or tympany. No guarding or rebound. No evidence of tenderness throughout. Back: No spinal tenderness. No costovertebral tenderness. Full range of motion. Male : Normal genitalia with no discharge or lesions. Skin: Warm, dry with normal turgor. Normal color with no rashes, no lesions, and no evidence of cellulitis. MS/ Extremity: Pulses equal, no cyanosis. Neurovascular intact. Full, normal range of motion. Neuro: Awake and alert, GCS 15, oriented to person, place, time, and situation. Cranial nerves II-XII grossly intact. Motor strength 5/5 in all extremities. Sensory grossly intact. Cerebellar exam normal. Normal gait. Psych: Awake, alert, with orientation to person, place and time. Behavior, mood, and affect are within normal limits. Vital Signs: 12:19 BP 94 / 60; Pulse 100; Resp 16; Temp 98; Pulse Ox 98% ; bp 15:28 BP 131 / 80; Pulse 70; Resp 18; Pulse Ox 100% on R/A; nj1 16:30 BP 107 / 73; Pulse 70; Resp 17; Pulse Ox 100% on R/A; nj1 17:30 BP 113 / 72; Pulse 70; Resp 12; Pulse Ox 100% on R/A; nj1 18:30 BP 119 / 76; Pulse 70; Resp 13; Pulse Ox 100% on R/A; nj1 19:30 BP 109 / 72; Pulse 70; Resp 16; Pulse Ox 100% ; cp4 MDM: 12:21 Patient medically screened. sp3 12:32 Data reviewed: vital signs, nurses notes, lab test result(s), radiologic studies. ED sp3 course: 72-year-old male with painless hematuria. Differential diagnosis is broad and includes UTI, kidney stone, other malignancy type spectrum, acute renal failure, acute tubular necrosis, among others. Workup will include urine analysis, laboratory values and CT scan of the abdomen pelvis with IV contrast. Disposition pending workup and patient course.. 05/23 12:21 Order name: CBC with Diff; Complete Time: 13:38 3 05/23 12:21 Order name: CMP; Complete Time: 13:38 3 05/23 12:21 Order name: Urinalysis w/ reflexes; Complete Time: 15:20 3 05/23 13:59 Order name: PT-INR; Complete Time: 15:20 3 05/23 13:59 Order name: Ptt, Activated; Complete Time: 15:20 3 05/23 13:59 Order name: Type And Screen; Complete Time: 15:20 [facility] 05/23 14:08 Order name: Urine Culture [facility] 05/23 14:48 Order name: Basic Metabolic Panel [facility] 05/23 14:48 Order name: Basic Metabolic Panel [facility] 05/23 14:48 Order name: Basic Metabolic Panel [facility] 05/23 14:48 Order name: Basic Metabolic Panel [facility] 05/23 14:48 Order name: Basic Metabolic Panel [facility] 05/23 14:48 Order name: Basic Metabolic Panel [facility] 05/23 14:48 Order name: CBC with Automated Diff [facility] 05/23 14:48 Order name: CBC with Automated Diff EDMS 05/23 14:48 Order name: CBC with Automated Diff EDMS 05/23 14:48 Order name: CBC with Automated Diff EDMS 05/23 14:48 Order name: CBC with Automated Diff EDMS 05/23 14:48 Order name: CBC with Automated Diff EDMS 05/23 14:48 Order name: Magnesium EDMS 05/23 14:48 Order name: Magnesium EDMS 05/23 14:48 Order name: Magnesium EDMS 05/23 14:48 Order name: Magnesium EDMS 05/23 14:48 Order name: Magnesium EDMS 05/23 14:48 Order name: Magnesium EDMS 05/23 14:48 Order name: Phosphorus EDMS 05/23 14:48 Order name: Phosphorus EDMS 05/23 14:48 Order name: Phosphorus EDMS 05/23 14:48 Order name: Phosphorus EDMS 05/23 14:48 Order name: Phosphorus EDMS 05/23 14:48 Order name: Phosphorus EDMS 05/23 12:21 Order name: CT Abd/Pelvis - IV Contrast Only; Complete Time: 13:38 sp3 05/23 14:48 Order name: CONS Physician Consult EDMS 05/23 12:21 Order name: IV Saline Lock; Complete Time: 12:32 sp3 05/23 12:21 Order name: Labs collected and sent; Complete Time: 12:32 sp3 05/23 13:59 Order name: NPO; Complete Time: 14:01 sp3 Administered Medications: 14:20 Drug: NS 0.9% IV 500 ml IV at bolus once Route: IV; Rate: bolus; Site: right forearm; nj1 15:28 Follow up: Response: No adverse reaction; IV Status: Completed infusion; IV Intake: nj1 500ml Disposition Summary: 05/23/23 14:01 Hospitalization Ordered Notes: Hospitalization Status: Inpatient Admission sp3 Provider: Robin Elizalde spKali Condition: Stable sp3 Problem: new sp3 Symptoms: have worsened sp3 Bed/Room Type: Standard sp3 Location: Telemetry/MedSurg (Inpatient)(05/23/23 19:07) Room Assignment: 225(05/23/23 19:07) cg Diagnosis - Hematuria, mild anemia sp3 Forms: - Medication Reconciliation Form sp3 - SBAR form sp3 - Leadership Thank You Letter sp3 Signatures: Dispatcher [employer] Megan Garza, RN RN cg Julian Garsia RN RN bp Brandi Park MD MD sp3 Lilia Perez RN RN nj1 Corrections: (The following items were deleted from the chart) 15:47 14:01 Telemetry/MedSurg (Inpatient) sp3 bp 15:47 14:01 sp3 bp 16:04 12:24 Home Meds: gabapentin 300 mg Oral cap 1 cap daily; bp nj1 16:04 16:01 Home Meds: midodrine 10 mg oral tablet 1 tab 3 times per day; nj nj1 19: 15:47 [facility] ER HOLD bp cg 19: 15:47 ERHOLD- bp cg
--- NOTE | 2023-05-23 14:02 | ER ---
Nurse's Notes [facility] Name: Thong Mar Age: 72 yrs Sex: Male : 1950 Arrival Date: 05/23/2023 Time: 12:14 Bed 14 Private MD: Diagnosis: Hematuria, mild anemia Presentation: 05/23 12:19 Chief complaint: EMS states: BLOOD IN URINE SINCE YESTERDAY. Coronavirus screen: At bp this time, the client does not indicate any symptoms associated with coronavirus-19. Ebola Screen: No symptoms or risks identified at this time. Initial Sepsis Screen: Does the patient meet any 2 criteria? No. Patient's initial sepsis screen is negative. Does the patient have a suspected source of infection? No. Patient's initial sepsis screen is negative. Risk Assessment: Do you want to hurt yourself or someone else? Patient reports no desire to harm self or others. Onset of symptoms is unknown. 12:19 Method Of Arrival: EMS: [facility] bp 12:19 Acuity: GAYATRI 3 bp Triage Assessment: 12:24 General: Appears in no apparent distress. Behavior is calm, cooperative, appropriate bp for age. Pain: Denies pain. : Reports BLOOD IN URINE. Historical: - Allergies: 12:24 No Known Drug Allergies; bp - Home Meds: 16:01 indomethacin 50 mg Oral cap 1 cap 3 times per day [Active]; nj1 16:03 gabapentin 300 mg Oral cap 1 cap every day at bedtime [Active]; midodrine 10 mg oral nj1 tablet 0.5 tabs 3 times per day [Active]; - PMHx: 12:24 chronic back pain; hypotension; Pacemaker; bp - Immunization history:: Adult Immunizations up to date. - Social history:: Smoking status: Patient denies any tobacco usage or history of. Screenin:24 [facility] ED Fall Risk Assessment (Adult) History of falling in the last 3 months, bp including since admission No falls in past 3 months (0 pts). Abuse screen: Denies threats or abuse. Denies injuries from another. Nutritional screening: No deficits noted. Tuberculosis screening: No symptoms or risk factors identified. Assessment: 12:24 General: SEE TRIAGE NOTE. bp 13:32 Reassessment: Not in room, in imaging. nj1 13:53 Reassessment: Patient appears in no apparent distress at this time. Patient and/or nj1 family updated on plan of care and expected duration. Pain level reassessed. Patient is alert, oriented x 3, equal unlabored respirations, skin warm/dry/pink. 15:28 Reassessment: Patient appears in no apparent distress at this time. Patient and/or nj1 family updated on plan of care and expected duration. Pain level reassessed. Patient is alert, oriented x 3, equal unlabored respirations, skin warm/dry/pink. 17:00 Reassessment: Patient appears in no apparent distress at this time. Patient and/or nj1 family updated on plan of care and expected duration. Pain level reassessed. Patient is alert, oriented x 3, equal unlabored respirations, skin warm/dry/pink. 17:00 Pain: Denies pain. nj1 18:00 Reassessment: Dr Rivers in room placing a catheter. nj1 19:27 Reassessment: Attempted to call report. Day shift nurse answered phone and stated night cp4 nurse just went into a room and to call back in 5 minutes. 19:47 Reassessment: Received call from 2nd floor stating the room was not clean. House cp4 detective supervisor stated that the room has been called out for a stat clean. Vital Signs: 12:19 BP 94 / 60; Pulse 100; Resp 16; Temp 98; Pulse Ox 98% ; bp 15:28 BP 131 / 80; Pulse 70; Resp 18; Pulse Ox 100% on R/A; nj1 16:30 BP 107 / 73; Pulse 70; Resp 17; Pulse Ox 100% on R/A; nj1 17:30 BP 113 / 72; Pulse 70; Resp 12; Pulse Ox 100% on R/A; nj1 18:30 BP 119 / 76; Pulse 70; Resp 13; Pulse Ox 100% on R/A; nj1 19:30 BP 109 / 72; Pulse 70; Resp 16; Pulse Ox 100% ; cp4 ED Course: 12:19 Patient arrived in ED. bp 12:20 Brandi Park MD is Attending Physician. sp3 12:24 Triage completed. bp 12:24 Arm band placed on. bp 12:24 Patient has correct armband on for positive identification. bp 12:31 Inserted saline lock: 20 gauge in right forearm, using aseptic technique. Blood bp collected. 12:34 Lilia Perez, RN is Primary Nurse. nj1 13:12 CT Abd/Pelvis - IV Contrast Only In Process Unspecified. EDMS 14:01 Robin Elizalde is Hospitalizing Provider. sp3 17:00 Client placed on continuous cardiac and pulse oximetry monitoring. NIBP monitoring nj1 applied. 18:30 Report given to Raven CONNER. nj1 19:18 Ziegler cath inserted, using sterile technique. nj1 19:32 No provider procedures requiring assistance completed. Patient admitted, IV remains in cp4 place. 19:49 Provided Education on: admission. cp4 Administered Medications: 14:20 Drug: NS 0.9% IV 500 ml IV at bolus once Route: IV; Rate: bolus; Site: right forearm; nj1 15:28 Follow up: Response: No adverse reaction; IV Status: Completed infusion; IV Intake: nj1 500ml Medication: 12:24 VIS not applicable for this client. bp Intake: 15:28 IV: 500ml; Total: 500ml. nj1 Outcome: 14:01 Decision to Hospitalize by Provider. sp3 19:32 Admitted to Med/surg accompanied by tech, via wheelchair, Report called to Giacomo rosen 19:32 Admitted to Med/surg accompanied by tech, via wheelchair, 19:32 Condition: stable 19:32 Instructed on follow up and referral plans. the need for admit, 19:32 Instructed on follow up and referral plans. the need for admit, 21:21 Patient left the ED. cp4 Signatures: Dispatcher [employer] EDPR Julian Garsia RN RN bp Patel, Setul, MD MD sp3 Lilia Perez, UBALDO RN Raven Mendes cp4 Corrections: (The following items were deleted from the chart) 16:04 12:24 Home Meds: gabapentin 300 mg Oral cap 1 cap daily; bp nj1 16:04 16:01 Home Meds: midodrine 10 mg oral tablet 1 tab 3 times per day; nj1 nj1
[2023-05-23] MEDS ORDERED: NA CHLORIDE 0.9% 500 ML ONE (14:13)
--- NOTE | 2023-05-23 14:20 | P.HP ---
Certification for Inpatient Patient admitted to: Observation With expected LOS: >2 Midnights Patient will require the following post-hospital care: None Practitioner: I am a practitioner with admitting privileges, knowledge of patient current condition, hospital course, and medical plan of care. Services: Services provided to patient in accordance with Admission requirements found in Title 42 Section 412.3 of the Code of Federal Regulations Patient History Date of Service: 05/23/23 Reason for admission: gross hematuria History of Present Illness: Thong Mar, is a 72-year-old male with past medical history chronic back pain; chronic hypotension; Pacemaker; who presents to the ED with complaints of hematuria x 3 episodes since late afternoon yesterday. Thong denies urinary frequency, dysuria, prior bladder or prostate cancer, family history of the same, increased back pain, abdominal pain, nausea, vomiting, diarrhea, and bleeding other spots or areas. Patient is not on antiplatelet agent or anticoagulant per his report. UA is positive for extreme turbid color, blood 3+, leukocyte esterase 25, RBC greater than 50, WBC greater than 50. He presents hypotensive at 94/60 and H&H 9/27. CT abdomen pelvis revealing bladder is source of bleeding, reporting "Asymmetric frondlike thickening of the urinary bladder is noted on the right measure up to [address] mm[address] Rivers has been consulted. Thong reports smoking cessation 30 years ago and has not used marijuana recently. Thong will be admitted to hospitalist service for further evaluation and treatment of gross hematuria. Allergies No Known Drug Allergies Allergy (Verified 05/23/23 16:12) Unknown No Known Allerg Allergy (Uncoded 01/04/17 18:43) Unknown Home Medications: Gabapentin 300 mg PO BEDTIME 05/23/23 Indomethacin 50 mg PO TID PRN 05/23/23 Midodrine HCl 5 mg PO TID PRN 05/23/23 Review of Systems 10-point ROS is otherwise unremarkable Physical Examination - Physical Exam General: Alert, In no apparent distress, Oriented x3 HEENT: Atraumatic, Normocephalic, PERRLA Neck: Supple, 2+ carotid pulse no bruit, JVD not distended Respiratory: Clear to auscultation bilaterally, Normal air movement Cardiovascular: No edema, Normal pulses, Regular rate/rhythm, Normal S1 S2 Capillary refill: <2 Seconds Gastrointestinal: Normal bowel sounds, Soft and benign, Non-distended Musculoskeletal: No clubbing, No swelling, No contractures Integumentary: No rashes, No breakdown, No significant lesion Neurological: Normal speech, Normal strength at 5/5 x4 extr, Normal tone - Studies Laboratory Data (last 24 hrs) 05/23/23 05/23/23 12:30 12:30 WBC 2.90 L Hgb 9.0 L Hct 27.1 L Plt Count 132 L Sodium 139 Potassium 5.1 BUN 39 H Creatinine 1.27 Glucose 92 Total Bilirubin 0.3 AST 13 L ALT 20 Alkaline Phosphatase 50 Assessment and Plan - Plan Assessment and plan Gross hematuria Urinary tract infection with urinary frequency TAL -CT abdomen pelvis revealing bladder is source of bleeding, reporting "Asymmetric frondlike thickening of the urinary bladder is noted on the right measure up to 15 mm." -UA is positive for extreme turbid color, blood 3+, leukocyte esterase 25, RBC greater than 50, WBC greater than 50 -Dr. Rivers consulted -Rocephin -BUN/creatinine 39/1.27, GFR 60 -NPO at midnight for surgical procedure Chronic anemia -H&H 01/18 -Type and screen -Monitor in a.m. lab -anemia work up ordered Chronic Hypotension -Midodrine PRN -Monitor BP every 4 hours DVT PPx SCD Full code LOS 2 to 3 days Discharge Plan: Home Plan to discharge in: 48 Hours - Advance Directives Does patient have a Living Will: No Does patient have a Durable POA for Healthcare: No Time Spent Managing Pts Care (In Minutes): 50
[2023-05-23 14:30] LABS: Protime INR 1.15
[2023-05-23] MEDS ORDERED: ENOXAPARIN 40 MG/0.4 ML SQ SCH (16:00)
[2023-05-23 16:28] VITALS: BMI 18.8
[2023-05-23] MEDS ORDERED: NA CHLORIDE 0.9% 100 ML ONE (16:39)
[2023-05-23] MEDS ORDERED: CEFTRIAXONE 1000 MG/VIAL ONE (16:39)
[2023-05-23] MEDS: CEFTRIAXONE 1,000 MG in NA CHLORIDE 0.9% 50 ML IVPB SCH (16:45)
--- NOTE | 2023-05-23 16:53 | P.CNS ---
Date of Consult: 05/23/23 Reason for Consult: gross hematuria Chief Complaint: gross hematuria History of Present Illness: 72-year-old gentleman with pacemaker and chronic hypotension with possible history of CVA and chronic back pain presented via the emergency department with gross hematuria present since yesterday. He denied any associated dysuria or fever, but his landlord at his apartment complex recommended he go to the emergency department, and he was transported here via ambulance. He acknowledges having had over 2 years of some bothersome urinary symptoms, but he never considered them anything bad because no one ever suggested they were a problem, and he does not have transportation to get him to any facility for evaluation. His LUTS consist of the following: Frequency/urgency/weak stream/nocturia 4 Straining/intermittency/incomplete emptying 0 AUA symptom score 16/35 and he acknowledges issues with relatively frequent urge incontinence that either requires him to wear a pad or change his underwear several times in a day. This has been occurring every 2 to 3 days. Associated with his most recent symptoms, he acknowledges being somewhat "queasy" in the stomach. No known drug allergies Past surgical history: Pacemaker and some lower extremity surgery Family history: His brother had some sort of cancer, but he does not know if it was urologic in nature Social history: He is a former smoker of 1 pack/day for 15 years but he quit 25 to 30 years ago Examination: Reasonably well-appearing and in no acute distress Alert, awake, oriented No dyspnea or sign of respiratory distress No cervical/supraclavicular adenopathy or thyromegaly Abdomen soft, but full beneath the umbilicus and the suprapubic region, nontender Genitalia: Circumcised without lesion, orthotopic meatus patent without lesion or discharge. Testes bilaterally descended without mass and nontender. Scrotum normal. LOYD deferred on this occasion in the ER Musculoskeletal: No lower extremity tenderness. Able to stand with slight instability. He felt the urge to void and was able to produce approximately 150 cc of [id number] tea colored urine without obvious clots 05/23/2023 1:23 pm CTAbdomen Pelvis W Contrast - FINDINGS: The lung bases are clear.Pacer wires are present. Superior right lobe liver demonstrates 16 mm cyst. No aggressive liver lesion or biliary dilatation. The spleen, pancreas, adrenal glands and kidneys are within normal limits. No bowel obstruction, free air, free fluid or abscess. The appendix is normal. No evidence of significant lymphadenopathy. There is frondlike asymmetric thickening of the urinary bladder superiorly and posteriorly measuring up to 15 mm on the right. Direct visualization would be advised for followup Right total hip arthroplasty is noted. Mild lumbar degenerative changes. IMPRESSION: Asymmetric frondlike thickening of the urinary bladder is noted on the right measure up to 15 mm. Advise followup direct visualization with cystoscopy. Elsewhere, no acute or aggressive process is seen. Laboratory analyses: 05/23/2023 WBC 2.9, hemoglobin/hematocrit 9.0/27.1, platelets 132, INR 1.15, creatinine 1.27, LFTs normal, UA micro trace leukocyte Estrace, greater than 50 RBCs per hpf, greater than 50 WBCs per hpf, no bacteria Assessment and recommendation: 72-year-old gentleman with pacemaker and chronic hypotension with possible history of CVA and chronic back pain with gross hematuria, suspected bladder mass on CT, anemia and irritative and obstructive LUTS potentially due to BPH with suspected large volume retention. -I requested the nurses perform bladder scan PVR. If greater than 250 to 300 cc retained, he likely would benefit from placement of a 20 [place] urethral Ziegler catheter. -I reviewed the images of the CT scan performed in detail. IV contrast/venous phase imaging revealed no obvious renal lesions. Delayed phase imaging was performed, but only of the pelvis, and there were no obvious filling defects within the distal ureters beneath the pelvic brim. Ultimately, he will need delayed phase imaging to rule out upper tract urothelial lesion/filling defect. Can obtain this prior to discharge, as an outpatient or potentially during subsequent operative evaluation as a retrograde pyelography study. -Follow-up urine culture -Continue antimicrobial therapy. Suspect Enterococcus, which may benefit more from Unasyn potentially than ceftriaxone, but may await cultures/sensitivities. -Recommend PSA testing -Will require outpatient cystoscopic evaluation within the next 3 weeks unless the hematuria resulted in progressive anemia that requires multiple/frequent transfusions or symptomatic. I counseled the patient on the importance of the outpatient evaluation since he expressed potential transportation difficulties noting he lives in [place]. He has a landlord, whom he thinks may be able to bring him to the appointment, and I explained the concern was the potential risk of bladder cancer, which necessitates the urgency of the evaluation. He understood and will make arrangements accordingly. Addendum: Bladder scan PVR performed with over 500 cc retained. Recommendation: Placement of a 20 [place] urethral Ziegler catheter Urethral Ziegler catheter insertion and bladder irrigation procedure note: The patient was supine on the ER stretcher, and I prepped his genitalia with Betadine and draped in standard fashion before applying lidocaine Uro-Jet intraurethrally for local anesthesia. I then passed a 20 [place] urethral Ziegler catheter via his urethra into his bladder with relative ease and decompressed it of some cranberry/port wine colored urine ~650cc. I then utilized a 60 cc catheter tip syringe to irrigate his bladder using 500 cc of normal saline removing a small burden of clot, until the urine was light pink and translucent. I then observed it for several minutes after that, and it remained light pink and translucent. Final recommendations: -Nursing to irrigate bladder using 60 cc catheter tip syringe and NS every 4 adam rs and as needed to remove clots. If urine more clear in the a.m., may discontinue manual bladder irrigations. -Follow-up a.m. labs and transfuse as necessary -If progressive worsening of the hematuria, notify me. -If hematuria resolves, may give an active voiding trial prior to discharge by retrograde filling his bladder slowly with 150 to 200 cc sterile NS/H2O, then removing the catheter by deflating the balloon of 10 cc while clamping the instilled fluid in his bladder, and then allow him to void into a urinal. If he voids less than half of the volume instilled, must replace a new 18 [place] coud tipped Ziegler catheter. If he voids more than half of the volume instilled, may discharge without the catheter. Allergies No Known Drug Allergies Allergy (Verified 05/23/23 16:12) Unknown No Known Allerg Allergy (Uncoded 01/04/17 18:43) Unknown Home medications list reviewed: Yes Home Medications: Gabapentin 300 mg PO BEDTIME 05/23/23 Indomethacin 50 mg PO TID PRN 05/23/23 Midodrine HCl 5 mg PO TID PRN 05/23/23 - Past Medical/Surgical History Diabetic: No - Social History Smoking Status: Former smoker, Unknown if ever smoked Physical Examination Laboratory Data (last 24 hrs) 05/23/23 05/23/23 05/23/23 14:05 12:30 12:30 WBC 2.90 L Hgb 9.0 L Hct 27.1 L Plt Count 132 L PT 12.6 H INR 1.15 APTT 36.1 Sodium 139 Potassium 5.1 BUN 39 H Creatinine 1.27 Glucose 92 Total Bilirubin 0.3 AST 13 L ALT 20 Alkaline Phosphatase 50 - Problems (1) Gross hematuria Current Visit: Yes Status: Acute (2) BPH loc w urin obs/LUTS Current Visit: Yes Status: Acute (3) Incomplete emptying of bladder Current Visit: Yes Status: Acute (4) Bladder mass Current Visit: Yes Status: Acute (5) Anemia Current Visit: Yes Status: Acute Qualifiers: Anemia type: other cause Other causes of anemia: other cause, not classified Qualified Code(s): D64.89 - Other specified anemias Conclusions/Impression: see A&P in [facility] Critical Care: No Time Spent Managing Pts care (In Minutes): 100
[2023-05-23] MEDS ORDERED: LIDOCAINE JELLY 2% 5 ML SYRINGE TOP ONE (17:40)
[2023-05-23] MEDS ORDERED: NA CHLORIDE 0.9% 1,000 ML ONE (17:53)
[2023-05-23] MEDS: GABAPENTIN 300 MG CAP PO SCH (22:00)
[2023-05-23] MEDS: MIDODRINE HCL 5 MG TABLET PO PRN (23:24)
[2023-05-24 06:21] LABS: Absolute Lymphocytes (CBC) 0.9 K/uL (0.7-4.9); Hematocrit 26.3 % (39.6-49.0); Lymphocytes % 13.5 % (15.3-44.8); MCV 87.8 fL (80-100); MPV 8.6 fL (7.6-11.3); Platelets 146 thou/uL (152-406); RBC Red Blood Cell Count 2.99 M/uL (4.33-5.43)
[2023-05-24 07:06] LABS: Magnesium 2.8 mg/dL (1.6-2.4); Phosphorus 3.2 mg/dL (2.5-4.9)
[2023-05-24] MEDS ORDERED: PNEUMOCOCCAL VACCINE 0.5 ML IMVAC ONE (08:00)
[2023-05-24] MEDS: CEFTRIAXONE 1,000 MG in NA CHLORIDE 0.9% 50 ML IVPB SCH (08:30)
[2023-05-24] MEDS: MIDODRINE HCL 5 MG TABLET PO PRN (08:30)
--- NOTE | 2023-05-24 12:18 | P.PN ---
Date of Service: 05/24/23 Aramis Benito is awake and feeling fine, no pain to his abdomen on palpation this morning. UOP 1300, 60 ml irrigation every [address] Rivers Urine output is dark red in color. ROS 10 point ROS as noted above, otherwise negative Physical Exam General: AAO x3, NAD, conversant HEENT: Atraumatic, Normocephalic, PERRLA Neck: Supple, 2+ carotid pulse no bruit, JVD not distended Respiratory: Clear to auscultation bilaterally, Normal air movement, symmetrical chest wall movement Cardiovascular: No edema, Normal pulses, Regular rate/rhythm, Normal S1 S2, no murmur appreciated Capillary refill: <2 Seconds Gastrointestinal: + Bowel sounds, Soft and benign, Non-distended Musculoskeletal: No clubbing, No swelling, No contractures Integumentary: No rashes, No breakdown, No significant lesion Neurological: Normal speech, Normal strength at 5/5 x4 extr, Normal tone Vitals Reviewed Problem list Gross hematuria Urinary tract infection with urinary frequency TAL Chronic anemia Chronic Hypotension Assessment and Plan Gross hematuria Urinary tract infection with urinary frequency TAL -CT abdomen pelvis revealing bladder is source of bleeding, reporting "Asymmetric frondlike thickening of the urinary bladder is noted on the right measure up to 15 mm." -UA is positive for extreme turbid color, blood 3+, leukocyte esterase 25, RBC greater than 50, WBC greater than 50 -Dr. Rivers consulted- placed three way riley for intermittent irrigation -Likely follow up as outpatient for surgical cystoscopy and follow up on the 15mm mass. -Rocephin -BUN/creatinine 41/1.31, GFR 58- gentle IVF -monitoring urine output to clear up, 60 ml irrigation Q4hr- will discharge when urine returns to normal color and has drained more than half of the total irrigation Iron deficiency anemia -H&H 01/24.3 stable, RBC 2.99 -Type and screen -Monitor in a.m. lab -Absolute reticulocyte 0.01, percent reticulocyte 0.25, iron 25, TIBC 279, transferrin 199, transferrin % 9.0, ferritin 106, vitamin B12 481 Chronic Hypotension -Midodrine PRN -Monitor BP every 4 hours -stable DVT PPx SCD Full code LOS 2 to 3 days
--- NOTE | 2023-05-24 14:53 | P.PN ---
Subjective Date of Service: 05/24/23 Chief Complaint: gross hematuria Subjective: Improving, Doing well (He was pleased with the nurse who flushed his catheter through the night) Physical Examination - Vital Signs Temperature: 97.5 F Blood Pressure: 100/57 Pulse: 70 Respirations: 16 Pulse Ox (%): 97 - Physical Exam General: Alert, In no apparent distress HEENT: Atraumatic, Normocephalic Respiratory: Normal air movement Neurological: Normal speech Urinary: Ziegler catheter (With tea colored urine without clots) - Studies Laboratory Data (last 24 hrs) 05/24/23 05/24/23 05:47 05:47 WBC 6.50 Hgb 9.0 L Hct 26.3 L Plt Count 146 L Sodium 138 Potassium 5.0 BUN 41 H Creatinine 1.31 H Glucose 98 Phosphorus 3.2 Magnesium 2.8 H Assessment And Plan - Current Problems (Diagnosis) (1) Gross hematuria Current Visit: Yes Status: Acute (2) BPH loc w urin obs/LUTS Current Visit: Yes Status: Acute (3) Incomplete emptying of bladder Current Visit: Yes Status: Acute (4) Bladder mass Current Visit: Yes Status: Acute (5) Anemia Current Visit: Yes Status: Acute Qualifiers: Anemia type: other cause Other causes of anemia: other cause, not classified Qualified Code(s): D64.89 - Other specified anemias - Plan Postadmission day 2 with apparent resolution of significant active hematuria, now with mostly old, oxidized hematuria. -Await results of urine culture -Continue manual catheter irrigation with nursing every 4 hours with 60 cc normal saline -Patient has expressed some significant difficulties with transportation. He lives in [place]. Additionally, my office finance staff expressed concerns that he has Medicare part a only, which may not cover outpatient examinations/evaluation. This raises concerns as to whether he would indeed seek follow-up as recommended. -As no progressive anemia or symptomatology associated with his gross hematuria, and since the active bleeding has seemed to slow/resolve, no indication for operative intervention/evaluation at this time. However, must consider operat ani assessment if patient unable to manage outpatient evaluation within the timeframe recommended. -Social work consultation to assist in potentially arranging necessary insurance status or emergency Medicaid necessary to achieve evaluation as recommended within 3 weeks, cystoscopy, as per previous consultation note. -He may also require repeat delayed phase upper tract imaging via CT or intraoperative retrograde pyelography studies. Discharge Plan: Home Time Spent Managing PTS Care (In Minutes): 15
[2023-05-24] MEDS ORDERED: NA CHLORIDE 0.9% 1,000 ML IV SCH (16:00)
[2023-05-24] MEDS ORDERED: MAGNESIUM HYDROXIDE 8% 30 ML PO PRN (20:35)
[2023-05-24] MEDS: GABAPENTIN 300 MG CAP PO SCH (20:40)
[2023-05-24] MEDS: LACTULOSE 20 GM/30 ML UCUP PO PRN (20:40)
[2023-05-25 07:23] LABS: Absolute Lymphocytes (CBC) 0.9 K/uL (0.7-4.9); Hematocrit 26.1 % (39.6-49.0); Lymphocytes % 14.9 % (15.3-44.8); MCV 88.8 fL (80-100); MPV 8.1 fL (7.6-11.3); Platelets 129 thou/uL (152-406); RBC Red Blood Cell Count 2.95 M/uL (4.33-5.43)
[2023-05-25 07:37] LABS: Magnesium 2.6 mg/dL (1.6-2.4); Phosphorus 2.7 mg/dL (2.5-4.9); Potassium 5.1 mEq/L (3.5-5.1)
--- NOTE | 2023-05-25 08:16 | P.PN ---
Date of Service: 05/25/23 Subjective No acute events overnight, this morning drea was called for what appeared to be a vagal epispde. Severe hypotension and nonresponsive. He has been constipated and seem to have a cold while on the toilet. When he recovered, stated he did not feel well and felt like he was going to pass out. He was safely helped back to bed, blood pressure rechecked with SBP 113. He reported feeling better at that time. Urine color has improved, back to karen color. ROS 10 point ROS as noted above, otherwise negative Physical Exam General: AAO x3, conversant, HEENT: Atraumatic, Normocephalic, PERRLA Neck: Supple, 2+ carotid pulse no bruit, JVD not distended Respiratory: Clear to auscultation bilaterally, Normal air movement, symmetrical chest wall movement Cardiovascular: No edema, S1 S2 present, Regular rate/rhythm, no murmur appreciated, hypotensive Capillary refill: <2 Seconds Gastrointestinal: + Bowel sounds, Soft and benign, Non-distended, nontender Musculoskeletal: No clubbing, No swelling, No contractures Integumentary: No rashes, No breakdown, No significant lesion Neurological: Normal speech, Normal strength at 5/5 x4 extr, Normal tone Vitals Reviewed Problem list Gross hematuria Urinary tract infection with urinary frequency TAL Chronic anemia Chronic Hypotension Assessment and Plan Gross hematuria Urinary tract infection with urinary frequency TAL -CT abdomen pelvis revealing bladder is source of bleeding, reporting "Asymmetric frondlike thickening of the urinary bladder is noted on the right measure up to 15 mm." -initial UA is positive for extreme turbid color, blood 3+, leukocyte esterase 25, RBC greater than 50, WBC greater than 50 -UA culture growing gram negative rods, pending sensitivity -Dr. Rivers consulted- placed three way riley for intermittent irrigation -Likely follow up as outpatient for surgical cystoscopy and follow up on the 15mm mass. -continue Rocephin -BUN/creatinine 32/1.17, GFR 66 -urine has cleared in color, will dc riley with void trial, UOP 900 ml today (05/25) Iron deficiency anemia -Hgb 8.8 stable -Type and screen -Monitor in a.m. lab -Absolute reticulocyte 0.01, percent reticulocyte 0.25, iron 25, TIBC 279, transferrin 199, transferrin % 9.0, ferritin 106, vitamin B12 481 Chronic Hypotension -Midodrine malia -Monitor BP every 4 hours -Vagal episode, causing hypotension today -gentle IVF DVT PPx SCD Full code LOS 24 hours
[2023-05-25] MEDS: CEFTRIAXONE 1,000 MG in NA CHLORIDE 0.9% 50 ML IVPB SCH (09:39)
[2023-05-25] MEDS: MIDODRINE HCL 5 MG TABLET PO SCH ×2 (16:10→20:42)
[2023-05-25] MEDS: GABAPENTIN 300 MG CAP PO SCH (20:40)
[2023-05-26 06:43] LABS: Absolute Lymphocytes (CBC) 0.9 K/uL (0.7-4.9); Hematocrit 26.6 % (39.6-49.0); Lymphocytes % 17.2 % (15.3-44.8); MCV 88.1 fL (80-100); MPV 8.6 fL (7.6-11.3); Platelets 131 thou/uL (152-406); RBC Red Blood Cell Count 3.02 M/uL (4.33-5.43)
[2023-05-26 06:55] LABS: Magnesium 2.4 mg/dL (1.6-2.4); Phosphorus 2.9 mg/dL (2.5-4.9); Potassium 4.8 mEq/L (3.5-5.1)
[2023-05-26] MEDS ORDERED: GENTAMICIN 80 MG/100 ML BAG 80 MG/100 ML BAG IV SCH (09:00)
[2023-05-26] MEDS: Meropenem 1,000 MG in NA CHLORIDE 0.9% 100 ML IV SCH ×2 (10:13→20:01)
[2023-05-26] MEDS: MIDODRINE HCL 5 MG TABLET PO SCH ×3 (10:14→20:02)
--- NOTE | 2023-05-26 12:30 | P.PN ---
Date of Service: 05/26/23 Subjective Stable overnight Alert and oriented x 3, continues to experience orthostatic hypotension No new complaints Will be starting Merrem for 14 days due to ESBL in urine ROS 10 point ROS as noted above, otherwise negative Physical Exam General: AAO x3, no acute distress HEENT: Atraumatic, Normocephalic, PERRLA Neck: Supple, 2+ carotid pulse no bruit, JVD not distended Respiratory: Clear to auscultation bilaterally, Normal air movement, symmetrical chest wall movement Cardiovascular: No edema or swelling, S1 S2 present, no murmur appreciated, RRR Capillary refill: <2 Seconds Gastrointestinal: + Bowel sounds, ND/NT, soft to palpation Musculoskeletal: No clubbing, No swelling, No contractures, able to bearweight Integumentary: No rashes, No breakdown, No significant lesion, warm/dry Neurological: Normal speech, Normal strength at 5/5 x4 extr, Normal tone Vitals Reviewed Problem list Gross hematuria Urinary tract infection with urinary frequency TAL Chronic anemia Chronic Hypotension Assessment and Plan Gross hematuria with complicated urinary tract infection (POA) Urinary tract infection with urinary frequency TAL -CT abdomen pelvis revealing bladder is source of bleeding, reporting "Asymmetric frondlike thickening of the urinary bladder is noted on the right measure up to 15 mm." -initial UA is positive for extreme turbid color, blood 3+, leukocyte esterase 25, RBC greater than 50, WBC greater than 50 -UA culture growing ESBL-Merrem for 14 days -Dr. Rivers consulted- placed three way riley for intermittent irrigation -Likely follow up as outpatient for surgical cystoscopy and follow up on the 15mm mass. -Stopped Rocephin -BUN/creatinine 28/1.22, GFR 63 -urine has cleared in color, will dc riley with void trial, UOP 900 ml today (05/25) -hematuria resolved Iron deficiency anemia -Hgb 9.0 stable -Type and screen -Monitor in a.m. lab -Absolute reticulocyte 0.01, percent reticulocyte 0.25, iron 25, TIBC 279, transferrin 199, transferrin % 9.0, ferritin 106, vitamin B12 481 Chronic Hypotension -continue Midodrine malia-continues with orthostatic hypotension -Monitor BP every 4 hours-stable -Vagal episode 05/25 -stopped IVF DVT PPx SCD Full code LOS 24 hours
[2023-05-26] MEDS: LACTULOSE 20 GM/30 ML UCUP PO PRN (15:19)
--- NOTE | 2023-05-26 19:32 | RAD REPORT ---
EXAM DESCRIPTION: RAD - Chest Single View - 05/26/2023 7:24 pm CLINICAL HISTORY: PICC line placement COMPARISON: Chest Single View dated 05/09/2021; Chest Single View dated 12/31/2020; Chest Single View da chrystal 01/04/2017; CHEST SINGLE VIEW dated 09/22/2014 FINDINGS: Portable chest was obtained following placement of a right upper extremity PICC line. The catheter tip projects over the SVC.
[2023-05-26] MEDS: GABAPENTIN 300 MG CAP PO SCH (20:02)
[2023-05-26 21:38] LABS: Immunoglobulin A 126 mg/dL (70-320); Tissue Transglutaminase IgA Ab <1.0 U/mL (<15.0)
[2023-05-27 04:10] LABS: Absolute Lymphocytes (CBC) 1.2 K/uL (0.7-4.9); Hematocrit 26.6 % (39.6-49.0); Lymphocytes % 23.3 % (15.3-44.8); MCV 87.6 fL (80-100); MPV 8.5 fL (7.6-11.3); Platelets 149 thou/uL (152-406); RBC Red Blood Cell Count 3.03 M/uL (4.33-5.43)
[2023-05-27 04:32] LABS: Magnesium 2.3 mg/dL (1.6-2.4); Phosphorus 3.2 mg/dL (2.5-4.9); Potassium 4.5 mEq/L (3.5-5.1)
[2023-05-27] MEDS: MIDODRINE HCL 5 MG TABLET PO SCH (08:36)
[2023-05-27] MEDS: Meropenem 1,000 MG in NA CHLORIDE 0.9% 100 ML IV SCH (08:37)
[2023-05-27 08:46] LABS: Albumin, (SPE) 3.7 g/dL (3.8-4.8); Alpha-1-Globulins 0.3 g/dL (0.2-0.3); Alpha-2-Globulins 0.6 g/dL (0.5-0.9); Gamma Globulins 0.7 g/dL (0.8-1.7); INTERPRETATION REPORT
[2023-05-27 08:58] VITALS: BP 96/53; TEMP 97.5
[2023-05-27 11:47] VITALS: O2SAT 98
--- NOTE | 2023-05-27 11:53 | P.DS ---
Admission Date: 05/24/23 Discharge Date: 05/27/23 Disposition: TRANSFER TO INPATIENT REHAB Discharge Condition: GOOD Reason for Admission: gross hematuria Brief History of Present Illness: Diagnosis: Gross hematuria Urinary tract infection with urinary frequency TAL Chronic anemia Chronic Hypotension Thong Mar, is a 72-year-old male with past medical history chronic back pain; chronic hypotension; Pacemaker; who presents to the ED with complaints of hematuria x 3 episodes since late afternoon yesterday. Thong denies urinary frequency, dysuria, prior bladder or prostate cancer, family history of the same, increased back pain, abdominal pain, nausea, vomiting, diarrhea, and bleeding other spots or areas. Patient is not on antiplatelet agent or anticoagulant per his report. UA is positive for extreme turbid color, blood 3+, leukocyte esterase 25, RBC greater than 50, WBC greater than 50. He presents hypotensive at 94/60 and H&H /. CT abdomen pelvis revealing bladder is source of bleeding, reporting "Asymmetric frondlike thickening of the urinary bladder is noted on the right measure up to [address] mm[address] Rivers has been consulted. Thong reports smoking cessation 30 years ago and has not used marijuana recently. Thong will be admitted to hospitalist service for further evaluation and treatment of gross hematuria. Hospital Course: Thong Mar is a pleasant 72 year old male with a past medical history significant for chronic back pain, chronic hypotension, and Pacemaker who was admitted to the [facility] on 05/23/23 for Gross hematuria. Thong presented to the ED with c/o of bloody urine. UA is positive for extreme turbid color, blood 3+, leukocyte esterase 25, RBC greater than 50, WBC greater than 50. Dr. Rivers was consulted and he applied a urinary catheter also ordered irrigation every 4 hours until urine cleared. UA positive for UTI present on admission, culture and sensitivity revealed ESBL. Merrem was started, PICC line was placed for continued Merrem doses x 14 days. His urine has cleared and is urinating without problems. He has been constipated during this admission, lactulose was ordered and constipation resolved. A vagal episode while having a BM. He return to baseline with no residual effects. CT abdomen pelvis revealed frond-like thickening of the urinary bladder on the right measuring 15 mm. Thong needs to see Dr. Rivers or other urologist for surgical cystoscopy for better diagnosis. Plan is for Thong to follow-up with the [facility] to restart insurance coverage. Urologist will be assigned at that point. He has been discharged to inpatient rehab to continue with physical therapy. He has orthostatic hypotension and will be using midodrine scheduled 3 times daily. He is tolerating p.o. diet, urinating with appropriate output, on room air, alert and oriented x 3, and hemodynamically stable ready for discharge. On 05/27/23, Thong was seen on morning rounds and deemed medically stable for discharge to inpatient rehab. Thong was discharged with instructions to schedule [facility] and [facility] Rivers. Thong was provided pre scriptions for midodrine, mild of mag, Merrem, and lactulose. He was given the opportunity to ask questions and reported no further questions. Furthermore, all questions were answered to the best of my ability. A copy of this discharge summary will be sent to the above providers to facilitate continuity of care. Today, I personally spent 50 minutes with Brendan, of which greater than 50% of the time was spent in patient education, counseling, and coordination of care as described above. Physical Exam General: Alert and oriented x3, no acute distress, conversnat HEENT: Atraumatic, Normocephalic, PERRLA Neck: Supple, 2+ carotid pulse no bruit, JVD not distended Respiratory: Clear to auscultation bilaterally, Normal air movement, symmetrical chest wall movement Cardiovascular: RRR, S1 S2 present, no murmur appreciated, no edema noted Capillary refill: <2 Seconds Gastrointestinal: Soft/ bengin, NT/ND, postive bowel sounds Musculoskeletal: No clubbing, No swelling, No contractures, able to bearweight Integumentary: No rashes, No breakdown, No significant lesion, warm/dry Neurological: Normal speech, Normal strength at 5/5 x4 extr, Normal tone Vital Signs/Physical Exam: Temp Pulse Resp BP Pulse Ox 97.5 F 69 16 96/53 L 98 05/27/23 08:00 05/27/23 08:00 05/27/23 08:00 05/27/23 08:00 05/27/23 08:00 Laboratory Data at Discharge: WBC 5.00 thou/uL (4.3-10.9) 05/27/23 03:48 Hgb 9.0 g/dL (13.6-17.9) L 05/27/23 03:48 Hct 26.6 % (39.6-49.0) L 05/27/23 03:48 Plt Count 149 thou/uL (152-406) L 05/27/23 03:48 PT 12.6 SECONDS (9.5-12.5) H 05/23/23 14:05 INR 1.15 05/23/23 14:05 APTT 36.1 SECONDS (24.3-36.9) 05/23/23 14:05 Sodium 139 mEq/L (136-145) 05/27/23 03:48 Potassium 4.5 mEq/L (3.5-5.1) 05/27/23 03:48 BUN 31 mg/dL (7-18) H 05/27/23 03:48 Creatinine 1.17 mg/dL (0.70-1.30) 05/27/23 03:48 Glucose 88 mg/dL (74-106) 05/27/23 03:48 Phosphorus 3.2 mg/dL (2.5-4.9) 05/27/23 03:48 Magnesium 2.3 mg/dL (1.6-2.4) 05/27/23 03:48 Total Bilirubin 0.3 mg/dL (0.2-1.0) 05/23/23 12:30 AST 13 U/L (15-37) L 05/23/23 12:30 ALT 20 U/L (16-61) 05/23/23 12:30 Alkaline Phosphatase 50 U/L (45-117) 05/23/23 12:30 Home Medications: Gabapentin 300 mg PO BEDTIME 05/23/23 Lactulose [Cephulac*] 30 ml PO DAILY PRN 05/27/23 Mag Hydroxide 8% [Milk Of Magnesia*] 30 ml PO DAILY PRN 05/27/23 Meropenem [Merrem*] 1 gm IV Q12H #20 vial 05/27/23 Midodrine HCl [Proamatine*] 5 mg PO TID tab 05/27/23 New Medications: Meropenem [Merrem*] 1 gm IV Q12H #20 vial Physician Discharge Instructions: 1. Please call and schedule a follow-up appointment with your PCP in 3-5 days - Please follow-up with your PCP for medication refills/adjustments 2. Please call restart [facility] 3. Continue Merrem to complete 14 total days (June 08 for last two doses)- treating ESBL in urine culture 4. Continue with midodrine TID scheduled, monitor Blood pressure closely 5. Return to the ED if symptoms worsen 6. Discharge to inpatient Rehab on 5th floor to continue physical therapy, fall precautions Diet: AHA Followup: NONE,NONE [Primary Care Provider] - Michoacano Rivers [ACTIVE - CAN ADMIT] - Time spent managing pt's care (in minutes): 50
== END 2023-05-27 11:40 | DRG 690 ==
LOC: ER 12:14 → ERHOLD 14:42 → 2ND 19:32 → OBSVTOIN 05-24 07:58
PROVIDERS: ADMIT Internal Medicine; ATTEND Internal Medicine
PROC: 0T9B70Z Drainage of Bladder with Drainage Device, Via Natural or Artificial Opening (ICD-10-PCS; principal; 2023-05-25)
PROC: 02HV33Z Insertion of Infusion Device into Superior Vena Cava, Percutaneous Approach (ICD-10-PCS; 2023-05-26)
DX: N39.0 Urinary tract infection, site not specified (principal); N17.9 Acute kidney failure, unspecified; Z16.12 Extended spectrum beta lactamase (ESBL) resistance; D64.89 Other specified anemias; I95.1 Orthostatic hypotension; G89.29 Other chronic pain; M54.9 Dorsalgia, unspecified; K59.00 Constipation, unspecified; D50.9 Iron deficiency anemia, unspecified; N40.1 Benign prostatic hyperplasia with lower urinary tract symptoms; R33.8 Other retention of urine; R31.0 Gross hematuria; R35.0 Frequency of micturition; Z23 Encounter for immunization; Z95.0 Presence of cardiac pacemaker; Z86.73 Personal history of transient ischemic attack (TIA), and cerebral infarction without residual deficits; Z79.899 Other long term (current) drug therapy; Z87.891 Personal history of nicotine dependence
CPT/HCPCS: 36415; 51702; 71045; 74177; 80048; 80053; 81001; 82607; 82728; 82784; 83010; 83540; 83615; 83735; 84100; 84165; 84466; 85025; 85044; 85610; 85730; 86364; 86850; 86900; 86901; 87077; 87086; 87088; 87186; 90471; 90732; 96360; 97110; 97112; 97161; 97530; 99285; G0378; J0696; J2185; J7030; J7040; Q9967

== ENCOUNTER 2023-05-27 10:20 | Inpatient (IN) | payer OTHER ==
[2023-05-27] MEDS ORDERED: DOCUSATE NA/SENNA CONC 1 TAB PO PRN (11:01)
[2023-05-27] MEDS: MIDODRINE HCL 5 MG TABLET PO SCH (13:30)
[2023-05-27 13:42] VITALS: BMI 18.8
[2023-05-27] MEDS ORDERED: FORMULATION-R RECTAL 57GM PR PRN (16:57)
[2023-05-27] MEDS: MAGNESIUM CITRATE 300 ML BOT PO SCH (17:00)
[2023-05-27] MEDS ORDERED: NA CHLORIDE 0.9% 250 ML ONE (19:34)
[2023-05-27] MEDS: Meropenem 1,000 MG in NA CHLORIDE 0.9% 100 ML IV SCH (19:34)
[2023-05-27] MEDS: GABAPENTIN 300 MG CAP PO SCH (19:35)
[2023-05-27] MEDS: ENSURE HIGH PROTEIN 237 ML CAN PO SCH (19:35)
[2023-05-27] MEDS: DOCUSATE NA/SENNA CONC 1 TAB PO SCH (19:35)
[2023-05-27] MEDS: SODIUM CHLORIDE 0.9% 10ML INJ IV SCH (20:00)
--- NOTE | 2023-05-28 02:09 | HP ---
Date of Admission: 05/27/2023 Time Of Service: 3:15 p.m. Chief Complaint: "I have problems going to the bathroom and blood in the urine." History Of Present Illness: Mr. Mar is a 72-year-old right-handed patient who was seen in the emergency room with 3 days of hematuria. Urinalysis was positive for extreme turbidity, 3+ blood, leukocyte esterase of 25, red blood cells were greater than 50, white blood cells greater than 50. In addition, he was hypotensive with blood pressures 94/60 and had a low hemoglobin and hematocrit of [address] scan of the abdomen and pelvis identified asymmetric frond like thickening of the urinary bladder on the right measuring up to 15 mm. The bladder was identified as a source of hematuria. He was admitted for further management with a diagnosis of gross hematuria. Has in addition to urinary tract infection, acute renal insufficiency and bladder mass. It was likely related to benign prostatic hypertrophy. He began Rocephin and was seen by Urology. He did receive midodrine for pressure support. He had a Ziegler catheter placed after his bladder scan showed he retained 650 cc. Bladder scans were scheduled every 4 hours. Urine cultures did grow ESBL E coli and he was placed on meropenem 14 days IV by PICC line. In addition, while hospitalized there were episodes of hypotension with more anemia and weakness. Also, he suffered a vagal episode with rapid response being called. He was found to be severely hypotensive and poorly responsive. He did receive IV hydration and returned back to baseline. However, he did have additional episodes of a sensation of passing out. The patient's evaluation by Urology was concerning for bladder cancer and would have to be worked up after his debility is addressed. He is functioning significantly at baseline level of functioning and as noted has multiple medical conditions that require daily evaluation and management. As a result, he is admitted to the inpatient rehabilitation unit for physical, occupational, speech therapy for 3-1/2 hours 5 of 7 days. Past Medical History: Chronic back pain, hypertension, pacemaker, and stroke. Allergies: NO KNOWN DRUG ALLERGIES. Medications: Tylenol 500 mg every 4 hours as needed, aspirin 81 mg daily, gabapentin 300 mg at bedtime, lactulose 20 g daily, Milk of Magnesia 30 mL daily as needed, melatonin 3 mg at bedtime, meropenem 1000 mg every 12 hours, midodrine 5 mg 3 times daily, Ensure Enlive 237 mL twice daily, Senokot-S 2 at bedtime. Family History: Noncontributory. Social History: No recent alcohol, tobacco, or IV drug use. Review of Systems: He reports constipation. Last bowel movement was around 3 days and has issues with his urination with hematuria that is now resolving. Also, he noted diffuse pain in the extremities, especially in the joints secondary to arthritis and has some difficulty sleeping. Says he only sleeps about 2 or 3 hours at a time. Otherwise, he denies any rash, any pulmonary issues, any other positives in a 10-point systems review. Physical Examination: Vital Signs: Blood pressure 108/64, pulse is 72, respiratory rate of 16, temperature 97.8, oxygen saturation 99%. He did have orthostatics: While lying, blood pressure 108/64, pulse of 72; while sitting, blood pressure 112/64, pulse of 76; and while standing, blood pressure 71/46. General: Mr. Mar is resting in bed. HEENT: He appears normocephalic, atraumatic. Sclerae anicteric. Oropharynx moist. Neck: Supple. Chest: Clear. Heart: Regular. Extremities: Show trace edema. No cyanosis. NEUROLOGIC: No focal deficits, just diffuse weakness noted. Laboratory Studies: White blood cell count 5.2, hemoglobin 9.0, hematocrit 26.6, platelets 131. Sodium 138, potassium 4.8, glucose 91, BUN 28, creatinine 1.22, calcium 8.9, magnesium 2.4, albumin 3.4. X-ray Imaging: Chest x-ray on May 26 shows placement of a right upper extremity PICC line. Catheter tip projects over the superior vena cava. Head and cervical spine CT scan done on May 09 shows no acute intracranial abnormalities. Cervical fracture not visualized. C3-4 spondylosis with mild posterior subluxation resulting in moderate central foraminal stenosis. Current Level Of Functioning: Eating, independent. Oral hygiene, independent. Toileting, setup assistance. Bathing, contact guard. Upper body dressing, contact guard assistance. Lower body dressing, contact guard. Rolling over from right to left and left to right, contact guard assistance. Moderate assistance for transfer from bed to toilet and to shower. Ambulation currently 0 feet and will be ambulated in the unit. Rehabilitation And Medical Assessment And Plan: Mr. Mar was admitted to the rehabilitation unit with impairment category 20 miscellaneous. His impairment group code is 16, debility, noncardiac, nonpulmonary. Etiologic diagnosis: Gross hematoma complicating urinary tract infection with ESBL requiring IV meropenem. Comorbidities: Anemia, hematuria, hypotension, urinary tract infection, benign prostatic hypertrophy, bladder mass, incomplete emptying of bladder. Plan: 1. Mr. Mar will have physical, occupational, speech therapy for 3-1/2 hours 5 of 7 days. 2. For his blood pressure support, continue with meropenem 1000 mg every 12 hours for 14 days as noted. 3. For DVT prophylaxis given his hematuria will be on sequential compression devices. Also will have aspirin 81 mg daily. The use of Lovenox and Eliquis currently may be re-evaluated depending on the patient's length of stay and if there is clearing of blood from the urine. 4. Lactulose for constipation, Senokot-S as well as needed. Please continue to have melatonin 3 mg at night for insomnia, gabapentin 300 mg at bedtime for neuropathic pain, and midodrine 5 mg 3 times daily for blood pressure support. Comorbidities That Are Impacting His Rehabilitation: Currently, Mr. 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 In addition, the low hemoglobin may be also contributing. At this point, when I interacted with him, he is fully oriented, followed all instructions appropriately and was cooperative with the nurse. However, at other times, the nurse did indicate he was refusing to have certain things done and required repeated reassurance. Rehab Specific Plan: Mr. Mar will have physical, occupational, and speech therapy for 3-1/2 hours, 5 of 7 days to improve his ability to transfer from bed to chair to toilet to shower and to ambulate 250 feet with modified independence, up and down 10 steps with modified independence. Mobilize a wheelchair 250 feet with modified independence and perform all cognitive functioning independently. Mr. Mar has a good understanding of the process of admission to the inpatient rehabilitation facility and his benefit from physical, occupational, and speech therapy. If need be, additional help from the hospitalist service and infectious disease service, and Urology may be consulted. Given his complex medical condition and risk of further complications, rehabilitation cannot be safely or effectively performed at a lower level facility such as [facility]. Barriers To Discharge: Currently, he does have the high risk of hematuria in addition to bladder cancer and may have a return of bleeding in the bladder area. His bladder mass has not been fully worked up and will be done after discharge. However, if need be the urologist service will be consulted to assist. Length Of Stay: About 10 days. Disposition: Home with family. Prognosis: Fair. Rehabilitation Goals: 1. Independent with upper and lower body dressing, toileting, showering, transferring, don and doff his shoes. 2. Independently ambulate 250 feet with a rolling walker. 3. Independent propel a wheelchair 250 feet. 4. Independently go up and down 10 steps with bilateral handrails. 5. Independently perform cognitive functioning, managing his medications, and making safe decisions and performing activities of daily living independently. 6. The above goals were reviewed with Mr. Mar who is in agreement. By signing this document, I acknowledge I have personally performed a full physical examination on Mr. Mar no later than 24 hours after his admission to the inpatient rehabilitation facility and determined he is able to tolerate the above course of treatment at a reasonable level of intensity for reasonable period of time. A detailed individualized plan of care for him will be completed by hospital day 4 based on the preadmission screen, history and physical, and therapy evaluations. BRET Voice ID: [id number] ION
[2023-05-28 06:00] LABS: Absolute Lymphocytes (CBC) 1.2 K/uL (0.7-4.9); Hematocrit 26.3 % (39.6-49.0); Lymphocytes % 26.4 % (15.3-44.8); MCV 87.4 fL (80-100); MPV 7.9 fL (7.6-11.3); Platelets 153 thou/uL (152-406)
[2023-05-28 06:11] LABS: Albumin 3.3 g/dL (3.4-5.0); Magnesium 2.5 mg/dL (1.6-2.4); Potassium 4.5 mEq/L (3.5-5.1); Prealbumin 17.9 mg/dL (20-40)
[2023-05-28] MEDS: ASPIRIN EC 81 MG TAB PO SCH (08:51)
[2023-05-29] MEDS: FERROUS SULFATE 325 MG TAB PO SCH (08:58)
[2023-05-29] MEDS: FE SULF/FA/VIT B COMP & C TAB PO SCH (08:58)
[2023-05-29] MEDS: MAGNESIUM HYDROXIDE 8% 30 ML PO PRN (13:02)
[2023-05-29] MEDS: NA CHLORIDE 0.9% 1,000 ML IV SCH (17:40)
[2023-05-29] MEDS: MELATONIN 3 MG TABLET PO PRN (20:34)
--- NOTE | 2023-05-29 22:18 | PN ---
Date of Progress Note: 05/29/2023 Time Of Service: 1:25 p.m. Subjective: Mr. Mar was resting in bed. Earlier today, the staff noted he had fluctuating coop eration. At 1 point, seeming to do very well than at 1 point, switching over and talking politics an d other topics not related to his therapy. However, at the time of my evaluation, he was very renaldo ative and agreed to participate fully without combative behavior. Otherwise, he is still concerned a bout potential blood in the urine, which earlier was shown to be dark blood, but that cleared very qu ickly and currently the urine which was observed at bedside shows no evidence of active bleeding or o ld blood in the urine. Objective: He denies any significant fevers, chills, nausea, vomiting, myalgias, arthralgias. No ra sh or other complaints. There is however a worry that he may have a baseline issue, perhaps a psychi atric issue as the speech therapist did note very significant fluctuations in his ability to pay atte ntion switching from topic to topic and at times being very tangential and the worry is he may have a n underlying or undiagnosed psychiatric condition and the psychiatrist may be asked to see the patien t to help potentially with diagnosis and treatment. Physical Examination: Vital Signs: Blood pressure 137/61, pulse 70, respiratory rate 18, temperature 97.2, oxygen saturati on 99%. General: Mr. Mar is lying in his bed in between therapy sessions. HEENT: He is normocephalic, atraumatic. Sclerae anicteric. Oropharynx moist. Neck: Supple. Chest: Clear. Heart: Regular. Extremities: No significant edema noted. Neuro: He has no focal neurological deficits. Mild diffuse weakness of upper and lower extremities. Laboratory Studies: White blood cell count 4.4, hemoglobin 8.9, platelets 153. Sodium 137, potassiu m 4.5, chloride 106, carbon dioxide 20, BUN 30, creatinine 0.03, prealbumin 17.9, albumin 3.3, magnes ium 2.5. X-ray/imaging: No new x-rays or imaging. Medications: He is on gabapentin 300 mg at bedtime, ferrous sulfate 325 mg daily, Tylenol 500 mg charissa ry 4 hours as needed, lactulose 20 g daily as needed for constipation, milk of magnesia 30 mL daily f or constipation, melatonin 3 mg at bedtime, meropenem 100 mg every 12 hours for ESBL urinary tract in fection, midodrine 5 mg 3 times daily, Hemocyte Plus 1 tablet with breakfast, Ensure Enlive 237 mL tw ice daily, Senokot-S 2 at bedtime. He is receiving IV fluids as a liter of sodium chloride going. Progress Made With Physical And Occupational Therapy: Today, bed mobility was standby assistance. Hieu pearce did need assistance with don his abdominal binder which was used as he has some orthostatic blood p ressure changes. He did feel dizzy and needed contact guard assistance. He did complete gait traini ng to the restroom and he did receive assistance to ambulate back to the restroom, total of 15 feet t wice. He also propel a wheelchair 250 feet twice with contact guard assistance. With his occupation al therapy, minimum assistance for bathing, independent for grooming, but otherwise 10 of 10 body par ts with instructions using assistive devices. Speech therapy emt intermediate goals to improve his executiv e functioning, memory skills, and to score 27+ on the BIMS. Mr. Mar is making progress overall with his physical and occupational therapy. However, he did have some issues per the speech pathologist of difficulty with short-term memory, decreased working m cherelle, decreased paragraph recall, and he did score 24/30 on the SLUMS and 14 on the BIMS, but as not ed, he at times would talk about unrelated topics that are circumferential and do not make much sense . Again, this was noted and the possibility to have a psychiatrist come in was considered. Assessment: Mr. Mar is a 72-year-old patient, admitted to the rehabilitation unit with urinary tract infection from ESBL and potential sepsis, for which he is receiving meropenem. He has some mil d dehydration now, anemia, hematuria which is improving, hypotension, benign prostatic hypertrophy wi th bladder mass. Plan: 1.Continue with physical, occupational, and speech therapy for 3.5 hours, 5 of 7 days. 2.Continue meropenem for 14 days every 12 hours 1000 mg. 3.His DVT prophylaxis will continue to be sequential compression devices and may continue also aspir in 81 mg daily, especially with the urine was clear. We will continue with his multiple comorbid con dition medications including receiving IV fluid hydration. The midodrine 3 times a day for pressure support, melatonin for insomnia, gabapentin for neuropathic pain, ferrous sulfate for his anemia, and Tylenol for pain. Comorbidities That Are Continuing To Impact The Rehabilitation: He is still significantly worried ab out blood in the urine and there was old blood likely which is a dark color that was noted, but at th e time I evaluated the patient, he had about 200 cc of urine in the urinal and there was no evidence of any blood there and that will be watched on a regular basis. Otherwise, he does appear to have so me potential personality issues or undiagnosed conditions such as a psychiatric condition, but by mahendra walker, he was appropriate on topic, but he did not remain so with speech pathology. Again, he may have psychiatry involvement if this continues. AMADOU/UZMA Voice ID: [id number] Report ID: [id number]
[2023-05-30] MEDS: LACTULOSE 20 GM/30 ML UCUP PO PRN (14:25)
--- NOTE | 2023-05-30 22:03 | PN ---
Date of Progress Note: 05/30/2023 Time Of Service: 1:20 p.m. Subjective: Mr. Mar is resting in bed. He is in bright spirits today. Reports no problems. D oing his therapy. No issues of tangential behaviors or speech. No nausea, vomiting, fever, chills, myalgias, arthralgias. No blood noted in the urine. Objective: Vital Signs: Blood pressure 111/63, pulse 70, respiratory rate 18, temperature 97.2, O2 saturation 97%. General: Mr. Mar is resting in bed. He is in no acute distress. HEENT: Normocephalic, atraumatic. Sclerae anicteric. Oropharynx pink, moist. Neck: Supple. Chest: Clear. Heart: Regular. Neuro: He has no focal neurological deficits. Diffuse weakness in upper and lower extremities. Laboratory Studies: No new laboratory studies compared to yesterday. X-ray/imaging: No new x-rays or imaging. Medications: Medications have been reviewed and are unchanged. Progress Made With Physical And Occupational Therapy Along With Speech Therapy: Today, he completed bed mobilization with contact guard assistance, multiple [id number] transfers with contact guard as sist as well. With occupational therapy, he was agreeable and participated well, was able to be inde pendent with grooming, oral care, shaving, independent lower body dressing, donning and doffing socks , independent. With speech therapy, recalled 3 of 4 unrelated pictures after 5 minutes on first atte mpt and 4 of 4 on second attempt after 5 minutes. Deductive reasoning skills used with 70% accuracy with minimum assistance and working memory for 4 words used with 70% accuracy and minimum assistance. Mr. Mar is doing well today with his physical, occupational, and speech therapy and he is refusi ng. He is not tangential, is more focused and not confused. Assessment: Mr. Mar is a 72-year-old patient in the rehabilitation unit with debility, who is m aking great progress. He has comorbidities that are stably managed. He is receiving meropenem for E SBL sepsis and urinary tract infection and is working very well around that as the nurses are hanging the IV antibiotics, has resolving hematuria not noted, he has hypotension, benign prostatic hypertro phy with bladder mass. Plan: 1.Continue with physical, occupational, and speech therapy for 3.5 hours, 5 of 7 days. 2.Continue with meropenem per protocol. 3.Continue with DVT prophylaxis, which is aspirin and SCDs, midodrine for pressure support, gabapent in for neuropathic pain, ferrous sulfate for anemia, Tylenol for pain. Comorbidities That Are Continuing To Impact His Rehabilitation: He is actually today not worried at all about blood in the urine and is doing well. However, he will still be watched for that carefully . His behaviors are much better today and he is on point and not tangential, but still will be obser memo to see if he needs to be evaluated by Psychiatry. AMADOU/UZMA Voice ID: [id number] Report ID: [id number]
[2023-05-31 05:30] LABS: Absolute Lymphocytes (CBC) 1.2 K/uL (0.7-4.9); Hematocrit 25.1 % (39.6-49.0); Lymphocytes % 30.7 % (15.3-44.8); MCV 88.1 fL (80-100); MPV 7.9 fL (7.6-11.3); Platelets 163 thou/uL (152-406); RBC Red Blood Cell Count 2.85 M/uL (4.33-5.43)
[2023-05-31 05:54] LABS: Albumin 3.1 g/dL (3.4-5.0); Magnesium 2.6 mg/dL (1.6-2.4); Potassium 4.3 mEq/L (3.5-5.1); Prealbumin 22.1 mg/dL (20-40)
--- NOTE | 2023-06-01 13:44 | P.RH.PN ---
Estimated Length of Stay: 11 Expected Discharge Date: 06/06/23 Discharge Disposition Plan: Home Family Support: Yes [facility] Goal: Mobility, Transfers, Self Care Vital Signs: Last Vital Signs Temp 97.2 F 06/01/23 08:00 Pulse 70 06/01/23 08:00 Resp 18 06/01/23 08:00 BP 112/68 06/01/23 08:00 Pulse Ox 98 06/01/23 08:00 Laboratory: Laboratory Last Values WBC 4.10 thou/uL (4.3-10.9) L 05/31/23 04:30 RBC 2.85 M/uL (4.33-5.43) L 05/31/23 04:30 Hgb 8.3 g/dL (13.6-17.9) L 05/31/23 04:30 Hct 25.1 % (39.6-49.0) L 05/31/23 04:30 MCV 88.1 fL (80-100) 05/31/23 04:30 MCH 29.3 pg (27.0-35.0) 05/31/23 04:30 MCHC 33.2 g/dL (32.0-36.0) 05/31/23 04:30 RDW 13.4 % (12.1-15.2) 05/31/23 04:30 Plt Count 163 thou/uL (152-406) 05/31/23 04:30 MPV 7.9 fL (7.6-11.3) 05/31/23 04:30 Neutrophils % 54.5 % (41.7-73.7) 05/31/23 04:30 Lymphocytes % 30.7 % (15.3-44.8) 05/31/23 04:30 Monocytes % 9.8 % (3.3-12.3) 05/31/23 04:30 Eosinophils % 4.2 % (0-4.4) 05/31/23 04:30 Basophils % 0.8 % (0-1.3) 05/31/23 04:30 Absolute Neutrophils 2.2 K/uL (1.8-8.0) 05/31/23 04:30 Absolute Lymphocytes 1.2 K/uL (0.7-4.9) 05/31/23 04:30 Absolute Monocytes 0.4 K/uL (0.1-1.3) 05/31/23 04:30 Absolute Eosinophils 0.2 K/uL (0-0.5) 05/31/23 04:30 Absolute Basophils 0.0 K/uL (0-0.5) 05/31/23 04:30 Sodium 140 mEq/L (136-145) 05/31/23 04:30 Potassium 4.3 mEq/L (3.5-5.1) 05/31/23 04:30 Chloride 110 mEq/L (98-107) H 05/31/23 04:30 Carbon Dioxide 29 mEq/L (21-32) 05/31/23 04:30 Anion Gap 5.3 mEq/L (5.0-15.0) 05/31/23 04:30 BUN 35 mg/dL (7-18) H 05/31/23 04:30 Creatinine 1.01 mg/dL (0.70-1.30) 05/31/23 04:30 Est GFR (CKD-EPI) 79 ml/min (=/>90) L 05/31/23 04:30 Glucose 78 mg/dL (74-106) 05/31/23 04:30 Calcium 8.8 mg/dL (8.5-10.1) 05/31/23 04:30 Magnesium 2.6 mg/dL (1.6-2.4) H 05/31/23 04:30 Albumin 3.1 g/dL (3.4-5.0) L 05/31/23 04:30 Prealbumin 22.1 mg/dL (20-40) 05/31/23 04:30 Weight: 135 lb Wound Present: Yes Closed Surgical Incision Present: No Negative Pressure Wound Therapy Present: No Physician Update: Labs were reviewed and are stable. He still has significant orthostatic low blood pressure. The abdominal binder and Abraham hose are in place. He is mildly malnurisned with low BMI. Meals on wheels would help. Supervision for loss of balance. Independent with transfers. Walking 250'. Independent with self care. He needs antibiotics up to 06/08/23. Summary: Patient's care plan and [facility] goals have been reviewed and revised as necessary. Please see the Rehabilitation Signature page for all necessary signatures.
[2023-06-01] MEDS: NA CHLORIDE 0.9% 1,000 ML IV SCH (19:31)
[2023-06-02] MEDS: FLUDROCORTISONE 0.1 MG TAB PO SCH (07:07)
--- NOTE | 2023-06-03 10:21 | P.PN ---
Date of Service: 06/03/23 Subjective: Mr. Mar with no new complaints. He is doing well; abdominal pian is improved. Objective: Vital Signs: reviewed General: Mr. Mar is resting in bed. He is in no acute distress. HEENT: Normocephalic, atraumatic. Sclerae anicteric. Oropharynx pink, moist. Neck: Supple. Chest: Clear. Heart: Regular. Neuro: He has no focal neurological deficits. Diffuse weakness in upper and lower extremities. Laboratory Studies: No new laboratory studies compared to yesterday. X-ray/imaging: No new x-rays or imaging. Medications: Medications have been reviewed and are unchanged. Progress Made With Physical And Occupational Therapy Along With Speech Therapy: Today, he completed bed mobilization with contact guard assistance, multiple [id number] transfers with contact guard assist as well. With occupational therapy, he was agreeable and participated well, was able to be independent with grooming, oral care, shaving, independent lower body dressing, donning and doffing socks, independent. With speech therapy, recalled 3 of 4 unrelated pictures after 5 minutes on first attempt and 4 of 4 on second attempt after 5 minutes. Deductive reasoning skills used with 70% accuracy with minimum assistance and working memory for 4 words used with 70% accuracy and minimum assistance. Mr. Mar is doing well today with his physical, occupational, and speech therapy and he is refusing. He is not tangential, is more focused and not confused. Assessment: Mr. Mar is a 72-year-old patient in the rehabilitation unit with debility, who is making great progress. He has comorbidities that are stably managed. He is receiving meropenem for ESBL sepsis and urinary tract infection and is working very well around that as the nurses are hanging the IV antibiotics, has resolving hematuria not noted, he has hypotension, benign prostatic hypertrophy with bladder mass. Plan: 1. Continue with physical, occupational, and speech therapy for 3.5 hours, 5 of 7 days. 2. Continue with meropenem per protocol. Patient is doing much better 3. Continue with DVT prophylaxis, which is aspirin and SCDs, midodrine for pressure support, gabapentin for neuropathic pain, ferrous sulfate for anemia, Tylenol for pain. Comorbidities That Are Continuing To Impact His Rehabilitation: He is doing well. His behaviors are better and he will be observed to see if he needs to be evaluated by sychiatry.
[2023-06-05] MEDS: ACETAMINOPHEN 500 MG TAB PO PRN (19:27)
--- NOTE | 2023-06-06 01:27 | PN ---
Date of Progress Note: 06/05/2023 Time Of Service: 1:25 p.m. Subjective: Mr. Mar is sitting at the side of his bed. He is getting ready for another physica l therapy session. There is abdominal binder in place. He said he is doing very well. Did enjoy hi s therapy today and is feeling better and stronger, able to do all of his own activities and return b ack to his prior state of functioning. Review of Systems: No fevers, chills, nausea, vomiting, myalgias, arthralgias, rash, headache, weight change. Physical Examination: Vital Signs: Blood pressure 120/62, pulse of 71, respiratory rate 16, temperature 97, oxygen saturat ion 98%. General: Mr. Mar is again sitting beside the bed. HEENT: He is normocephalic, atraumatic. Sclerae anicteric. Oropharynx pink, moist. Neck: Supple. Chest: Clear. Heart: Regular. Extremities: Show no significant cyanosis, clubbing, or edema. Laboratory Studies: No new laboratory studies. X-ray/imaging: No new x-rays or imaging. Progress Made With Physical And Occupational Therapy: Today, with physical therapy, ambulated with a rolling walker 500 feet and 375 feet with contact guard assistance. He was able to go up and down 1 5 steps with bilateral handrails and standby assistance twice. With occupational therapy, independen t with bathing, toileting, lower body dressing, footwear, all were independent. He did have signific ant drops in his blood pressure and was able to keep doing his therapy. With speech, he demonstrated reading comprehension. Level material with 90% accuracy, had sustained attention for adequate periods of time, able to parap hrase information that he read. Mr. Mar is making excellent progress with his physical, occupational, and speech therapy and rochelle pately will be ready to go home in the next few days. Assessment: Mr. Mar is a 72-year-old patient in the rehabilitation unit with debility from whic h he is recovering very well making excellent progress. He is having meropenem for ESBL bacterial se psis following urinary tract infection, that will complete his therapy on before his dischar ge. He has hypertension. He has abdominal binder and RONI hose in place and benign prostatic hypertr ophy and bladder mass. He has resolved hematuria. Plan: 1.Continue with physical, occupational, and speech therapy for 3.5 hours, 5 of 7 days. 2.Complete meropenem per protocol. 3.Continue with SCDs, abdominal binders, midodrine for pressure support, ferrous sulfate for anemia, Tylenol for pain, gabapentin for neuropathic pain. Comorbidities That Are Continuing To Impact His Rehabilitation: At this point, he will continue his IV antibiotics which is being worked around in terms of his therapy schedule. He will complete IV an tibiotics prior to his discharge home. He is actually doing well and had at least at 1 point, potent ial need for Psychiatry, but that is all resolved. LB/MODL Voice ID: [id number] Report ID: [id number]
[2023-06-06 07:10] LABS: Hematocrit 25.4 % (39.6-49.0); Lymphocytes % 24.5 % (15.3-44.8); MCV 87.8 fL (80-100); MPV 8.1 fL (7.6-11.3); Platelets 164 thou/uL (152-406)
[2023-06-06 07:17] LABS: Potassium 4.1 mEq/L (3.5-5.1)
[2023-06-06] MEDS: LIDOCAINE 4% PATCH TOP SCH (09:49)
[2023-06-06] MEDS ORDERED: NA CHLORIDE 0.9% 250 ML ONE (09:56)
[2023-06-07] MEDS: LIDOCAINE 4% PATCH TOP SCH (10:14)
[2023-06-07] MEDS: Meropenem 1,000 MG in NA CHLORIDE 0.9% 100 ML IV SCH (19:52)
--- NOTE | 2023-06-07 20:42 | PN ---
Date of Progress Note: 06/07/2023 Time Of Service: 1:20 p.m. Subjective: Mr. Mar is sitting in his bed. He is very happy with his therapy. He has no compl aints and says he is getting back to his normal self and getting strong. Review of Systems: No fevers, chills, myalgias, arthralgias. No blood in the urine, which was an issue when he first ar rived on the floor and no other complaints. Physical Examination: Vital Signs: Blood pressure 114/88, pulse of 70, respiratory rate 16, temperature 97.2, oxygen satur ation 95%. General: Mr. Mar is sitting comfortably in a chair. HEENT: He is normocephalic, atraumatic. Sclerae anicteric. Oropharynx pink, moist. Neck: Supple. Chest: Clear. Heart: Regular. Extremities: No significant edema or cyanosis and no focal neurological deficits and his diffuse wea kness is improving significantly. Laboratory Studies: White blood cell count from the 6th is 4, hemoglobin 8.7, platelets 164. Sodium 139, potassium 4.1, chloride 107, carbon dioxide 30, BUN 37, creatinine 1.08, glucose 84, calcium 8. 8. X-ray/imaging: No new x-rays or imaging. Medications: Medications have been reviewed and are unchanged. Progress Made With His Physical And Occupational And Speech Therapy: With his physical therapy, he m obilized 350 feet independently with a wheelchair. He did [id number] transfers independently and sit to stand transfers also independently. He did not want to participate in gait at the time of the therapist worked with him because of low blood pressure. Regarding his speech therapy, he was able to score a 50/15 on the BIMs test, 26/30 on the SLUMS tests showing mild cognitive impairment. In te sandip of his occupational therapy, independent with bed mobility, toileting, showering, propelling hims elf from the wheelchair to the shower, again covering 500 feet forward and 500 feet backward, all ind ependently. Independent with toileting, bathing, upper and lower body dressing. Goals actually were met and he is ready for discharge home from the standpoint of occupational therapy. Mr. Mar is making excellent progress with his physical, occupational, and speech therapy and is doing very well and referred to discharge. Assessment: Mr. Mar is a 72-year-old patient admitted to the rehabilitation unit with debility, from which he is recovering excellently and he is close to being ready for discharge. He did comple te meropenem for ESBL bacteremia and sepsis and has the orthostatic changes with low blood pressure, addressed with RONI hose, abdominal binder, and pressure support. His hematuria has resolved. Plan: 1.For now, continue physical, occupational, and speech therapy for 3.5 hours, 5 of 7 days. 2.Finished his antibiotics. 3.Continue with pressure support with RONI hose, abdominal binders, and medications appropriate. Con tinue with ferrous sulfate for anemia, gabapentin and Tylenol for his neuropathic pain, Hemocyte Plus for his malnutrition, midodrine will support his pressure, lidocaine patch for pain, and gabapentin for neuropathic pain. Comorbidities That Are Continuing To Impact His Rehabilitation: Currently, his pain has been mitigat ed very well. He has continued and completed antibiotics. No evidence of any infection or sepsis or urinary tract infection and he is actually ready for discharge. We will continue with therapy via [facility]. AMADOU/UZMA Voice ID: [id number] Report ID: [id number]
[2023-06-08 07:13] VITALS: BP 130/71; TEMP 97.2
--- NOTE | 2023-06-08 13:14 | P.RH.PN ---
Estimated Length of Stay: 14 Expected Discharge Date: 06/10/23 Discharge Disposition Plan: Home Family Support: Yes Vital Signs: Last Vital Signs Temp 97.2 F 06/08/23 07:01 Pulse 70 06/08/23 07:01 Resp 18 06/08/23 07:01 BP 130/71 06/08/23 07:01 Pulse Ox 100 06/08/23 07:01 Laboratory: Laboratory Last Values WBC 4.00 thou/uL (4.3-10.9) L 06/06/23 04:38 RBC 2.90 M/uL (4.33-5.43) L 06/06/23 04:38 Hgb 8.7 g/dL (13.6-17.9) L 06/06/23 04:38 Hct 25.4 % (39.6-49.0) L 06/06/23 04:38 MCV 87.8 fL (80-100) 06/06/23 04:38 MCH 30.0 pg (27.0-35.0) 06/06/23 04:38 MCHC 34.2 g/dL (32.0-36.0) 06/06/23 04:38 RDW 13.6 % (12.1-15.2) 06/06/23 04:38 Plt Count 164 thou/uL (152-406) 06/06/23 04:38 MPV 8.1 fL (7.6-11.3) 06/06/23 04:38 Neutrophils % 61.9 % (41.7-73.7) 06/06/23 04:38 Lymphocytes % 24.5 % (15.3-44.8) 06/06/23 04:38 Monocytes % 9.1 % (3.3-12.3) 06/06/23 04:38 Eosinophils % 3.5 % (0-4.4) 06/06/23 04:38 Basophils % 1.0 % (0-1.3) 06/06/23 04:38 Absolute Neutrophils 2.5 K/uL (1.8-8.0) 06/06/23 04:38 Absolute Lymphocytes 1.0 K/uL (0.7-4.9) 06/06/23 04:38 Absolute Monocytes 0.4 K/uL (0.1-1.3) 06/06/23 04:38 Absolute Eosinophils 0.1 K/uL (0-0.5) 06/06/23 04:38 Absolute Basophils 0.0 K/uL (0-0.5) 06/06/23 04:38 Sodium 139 mEq/L (136-145) 06/06/23 04:38 Potassium 4.1 mEq/L (3.5-5.1) 06/06/23 04:38 Chloride 107 mEq/L (98-107) 06/06/23 04:38 Carbon Dioxide 30 mEq/L (21-32) 06/06/23 04:38 Anion Gap 6.1 mEq/L (5.0-15.0) 06/06/23 04:38 BUN 37 mg/dL (7-18) H 06/06/23 04:38 Creatinine 1.08 mg/dL (0.70-1.30) 06/06/23 04:38 Est GFR (CKD-EPI) 73 ml/min (=/>90) L 06/06/23 04:38 Glucose 84 mg/dL (74-106) 06/06/23 04:38 Calcium 8.8 mg/dL (8.5-10.1) 06/06/23 04:38 Magnesium 2.6 mg/dL (1.6-2.4) H 05/31/23 04:30 Albumin 3.1 g/dL (3.4-5.0) L 05/31/23 04:30 Prealbumin 22.1 mg/dL (20-40) 05/31/23 04:30 Weight: 135 lb Wound Present: Yes Closed Surgical Incision Present: No Negative Pressure Wound Therapy Present: No Physician Update: His labs were reviewed and are stable. Hematuria has resolved. Still has orthstatic hypotention. BIMS 15, SLUMS 26. Independent 350' with RW with abdominal binder. Ready for discharge. Summary: Patient's care plan and retirement goals have been reviewed and revised as necessary. Please see the Rehabilitation Signature page for all necessary signatures.
== END 2023-06-08 17:39 | disposition home health service (06) | DRG 947 ==
LOC: 5TH 10:20
PROVIDERS: ADMIT Psychiatry & Neurology Neurology with Special Qualifications in Child Neurology; ATTEND Psychiatry & Neurology Neurology with Special Qualifications in Child Neurology
DX: R53.81 Other malaise (principal); A41.9 Sepsis, unspecified organism; G92.9 Unspecified toxic encephalopathy; N39.0 Urinary tract infection, site not specified; F05 Delirium due to known physiological condition; G89.29 Other chronic pain; I10 Essential (primary) hypertension; R31.0 Gross hematuria; D64.9 Anemia, unspecified; I95.9 Hypotension, unspecified; N40.0 Benign prostatic hyperplasia without lower urinary tract symptoms; K59.00 Constipation, unspecified; E86.0 Dehydration; N32.9 Bladder disorder, unspecified; Z95.0 Presence of cardiac pacemaker
CPT/HCPCS: 36415; 80048; 82040; 83735; 84134; 85025; 92523; 97110; 97116; 97129; 97161; 97165; 97530; 97542; A4216; J2001; J2185; J7030; J7050

== ENCOUNTER 2023-08-11 11:38 | Inpatient (IN) | payer OTHER ==
[2023-08-11] MEDS ORDERED: ACETAMINOPHEN 325 MG TABLET ONE (11:56)
[2023-08-11] MEDS ORDERED: NA CHLORIDE 0.9% 500 ML ONE (11:57)
[2023-08-11 12:05] LABS: Absolute Eosinophils 0.2 K/uL (0-0.5); Absolute Lymphocytes (CBC) 0.8 K/uL (0.7-4.9); Absolute Monocytes 0.5 K/uL (0.1-1.3); Absolute Neutrophil 5.1 K/uL (1.8-8.0); Basophils % 0.6 % (0-1.3); Eosinophils % 2.9 % (0-4.4); Hemoglobin 9.6 g/dL (13.6-17.9); Lymphocytes % 12.6 % (15.3-44.8); MCH 29.6 pg (27.0-35.0); MCHC 33.2 g/dL (32.0-36.0); MPV 8.4 fL (7.6-11.3); Neutrophils % 75.9 % (41.7-73.7); Platelets 197 thou/uL (152-406); RBC Red Blood Cell Count 3.26 M/uL (4.33-5.43); Red Cell Distribution Width 13.3 % (12.1-15.2)
[2023-08-11 12:08] LABS: PT Prothrombin Time 11.7 SECONDS (9.5-12.5); PTT, Activated Partial Thromb 34.4 SECONDS (24.3-36.9); Protime INR 1.07
[2023-08-11 12:21] LABS: ALT/SGPT 18 U/L (16-61); AST/SGOT 20 U/L (15-37); Albumin 3.6 g/dL (3.4-5.0); Alkaline Phosphatase 71 U/L (45-117); Anion Gap 6.4 mEq/L (5.0-15.0); BUN Blood Urea Nitrogen 38 mg/dL (7-18); Bicarbonate 27 mEq/L (21-32); Bilirubin Total 0.2 mg/dL (0.2-1.0); Globulin 3.6 g/dL (2.3-3.5); Glomerular Filtration Rate 58 ml/min (=/>90); Glucose Level 94 mg/dL (74-106); Magnesium 2.9 mg/dL (1.6-2.4); Potassium 5.4 mEq/L (3.5-5.1); Protein, Total 7.2 g/dL (6.4-8.2); Sodium Level 137 mEq/L (136-145)
[2023-08-11 12:22] LABS: Bilirubin Direct < 0.1 mg/dL (0-0.2); Bilirubin Indirect, Calculated ND mg/dL (0.2-0.8); Troponin High Sensitivity < 3.0 pg/mL (<58.9)
--- NOTE | 2023-08-11 12:35 | RAD REPORT ---
EXAM DESCRIPTION: RAD - Chest Single View - 08/11/2023 12:21 pm CLINICAL HISTORY: fall/syncope COMPARISON: Chest Single View dated 05/26/2023; Chest Single View dated 05/09/2021; Chest Single View d ated 12/31/2020; Chest Single View dated 01/04/2017; Shoulder Left 2 View dated 08/11/2023 FINDINGS: Lines: Pacemaker. Lungs: No evidence of edema or pneumonia. Pleural: No significant pleural effusions or pneumothorax. Cardiac: Mild cardiomegaly . Mediastinum: Within normal limits. Bones: No acute fractures. Other: None IMPRESSION: No acute cardiopulmonary disease.
--- NOTE | 2023-08-11 12:36 | RAD REPORT ---
EXAM DESCRIPTION: RAD - Shoulder Left 2 View - 08/11/2023 12:21 pm CLINICAL HISTORY: PAIN COMPARISON: No comparisons FINDINGS/IMPRESSION: Mildly displaced fracture at the lateral third of the clavicle. The fracture is mildly comminuted. No extension to the AC joint. No other fractures identified.
[2023-08-11 12:46] LABS: Specific Gravity 1.011 (1.005-1.030); Sqamous Epithelial None Seen /HPF (None Seen); Urine Bacteria >50 /HPF (<20); Urine Bilirubin NEGATIVE (Negative); Urine Blood Negative (Negative); Urine Clarity Turbid (Clear); Urine Color Light-Yellow (Yellow); Urine Culture Reflex Order REFLEXED; Urine Glucose NEGATIVE (Negative); Urine Ketones NEGATIVE (Negative); Urine Microscopic Reflex YN ORDER UMIC; Urine Mucus Slight /HPF (None Seen); Urine Nitrite NEGATIVE (Negative); Urine Protein NEGATIVE (Negative); Urine RBC <5 /HPF (None Seen); Urine Urobilinogen Normal (Normal)
--- NOTE | 2023-08-11 13:36 | RAD REPORT ---
EXAM DESCRIPTION: CT - Head C Spine Cap Chaz Lambert - 08/11/2023 12:49 pm CLINICAL HISTORY: fall, head/back/neck pain COMPARISON: No comparisons TECHNIQUE: Head and cervical spine CT images were obtained without IV contrast. Chest, abdomen, and pelvis CT images were obtained following intravenous administration of 100 mL Isovue-300. Multiplanar reformats were generated and reviewed. All CT scans are performed using dose optimization technique as appropriate and may include automated exposure control or mA/KV adjustment according to patient size. FINDINGS: CT HEAD: No intracranial hemorrhage, mass effect, or edema. No evidence of acute territorial infarct. No midli ne shift or abnormal fluid collection. The ventricles are normal in caliber and configuration for age . Basal cisterns are patent. Mastoid aircells and paranasal sinuses are clear. No acute skull fractur e. Left frontal scalp hematoma. CT CERVICAL SPINE: No acute cervical spine fracture or subluxation. Vertebral body heights are well maintained. Facet indra ints show moderate degenerative changes particularly at C2-3 and C3-4. No hyperattenuating canal dylan nia. Prevertebral and paraspinous soft tissues are unremarkable. CT CHEST: No pneumothorax, pulmonary contusion or pleural fluid collection. No mediastinal hematoma and the aor ta and pulmonary arteries are unremarkable. No chest will mass or abnormal axillary finding. No displ aced rib fracture or other significant bony finding. CT ABDOMEN/ PELVIS: No evidence of traumatic injury to solid abdominal viscera. Gallbladder and biliary tree are unremark able. No bowel injury or significant finding. No free air, free fluid or abnormal fat stranding. No u rinary bladder abnormality. Atrophic changes of the kidneys particularly on the left. Hypoattenuating 1.5 cm lesion at the dome of the liver, not well characterized, likely representing a small cyst. No significant bony finding. IMPRESSION: No acute traumatic findings. Left frontal scalp hematoma. Incidental findings as above.
--- NOTE | 2023-08-11 14:11 | EDPHYS ---
Physician Documentation [facility] Name: Thong Mar Age: 72 yrs Sex: Male : 1950 Arrival Date: 08/11/2023 Time: 11:38 Bed 16 Private MD: ED Physician Emory Anna HPI: 08/10 11:42 This 72 yrs old Male presents to ER via EMS with complaints of Fall Injury. rn 11:42 Details of fall: The patient fell from an upright position, while standing. Onset: The rn symptoms/episode began/occurred just prior to arrival. Associated injuries: The patient sustained injury to the head, neck injury, injury to the chest. Severity of symptoms: At their worst the symptoms were mild, in the emergency department the symptoms are unchanged. The patient has not experienced similar symptoms in the past. 11:43 Patient was walking out, throwing the trash out, fell, unknown if syncope, by the rn dumpsters. Patient reports head injury with mild headache. Also reports mild pain to the neck and back. Patient states has been constipated lately and took laxatives, had numerous bowel movements this morning. No abdominal pain. No blood in stool. Patient does not recall events of what happened. States woke up on the floor.. Historical: - Allergies: 11:42 No Known Drug Allergies; hb - PMHx: 11:42 chronic back pain; hypotension; Pacemaker; hb - Immunization history:: Adult Immunizations up to date. - Infectious Disease History:: Denies. - Social history:: Smoking status: Patient denies any tobacco usage or history of. - Family history:: not pertinent. - Hospitalizations: : No recent hospitalization is reported. ROS: 11:45 Constitutional: Negative for fever, chills, and weight loss, Eyes: Negative for injury, rn pain, redness, and discharge, Neck: Mild neck pain Cardiovascular: Negative for chest pain, palpitations, and edema, Respiratory: Negative for shortness of breath, cough, wheezing, and pleuritic chest pain, Abdomen/GI: Negative for abdominal pain, nausea, vomiting, diarrhea, and constipation, Back: Mild mid back pain MS/Extremity: Mild pain to left shoulder Skin: Positive for abrasion and hematoma to the left forehead/christian Neuro: Mild headache. No seizure. No focal weakness or numbness. Exam: 11:45 Constitutional: This is a well developed, well nourished patient who is awake, alert, rn and in no acute distress. Head/Face: Normocephalic, moderate hematoma left forehead/christian with overlying abrasion, no laceration that required sutures. No active bleeding. Eyes: Pupils equal round and reactive to light, extra-ocular motions intact. Ecchymosis inferiorly to both eyes. No bony tenderness of socket ENT: No intraoral trauma noted Neck: No midline cervical tenderness Chest/axilla: Normal chest wall appearance and motion. Nontender with no deformity. No lesions are appreciated. Cardiovascular: Regular rate and rhythm. No pulse deficits. Respiratory: No increased work of breathing, no retractions or nasal flaring. Abdomen/GI: Soft, non-tender Back: No spinal tenderness. MS/ Extremity: Pulses equal, no cyanosis. Neurovascular intact. Full, normal range of motion. Equal circumference. Neuro: Awake and alert, GCS 15 14:40 ECG was reviewed by the Attending Physician. rn Vital Signs: 11:40 BP 127 / 83; Pulse 68; Resp 16; Temp 98.1(TE); Pulse Ox 100% on R/A; Weight 68.04 kg; hb Height 5 ft. 11 in. ; Pain 8/10; 12:57 BP 128 / 65; Pulse 77; Resp 15; Pulse Ox 100% ; bp 14:53 BP 131 / 80; Pulse 70; Resp 16; Pulse Ox 99% ; bp 11:40 Body Mass Index 20.92 (68.04 kg, 180.34 cm) hb 11:40 Pain Scale: Adult hb MDM: 11:40 Patient medically screened. rn 14:09 Differential diagnosis: abrasion, closed head injury, contusion, fracture, sprain, rn strain. Data reviewed: vital signs, nurses notes, lab test result(s), EKG, radiologic studies, CT scan, plain films, and as a result, I will admit patient. Consideration of Admission/Observation Patient was admitted/placed on observation. Escalation of care including admission/observation considered. Care significantly affected by the following chronic conditions: Pacemaker. Counseling: I had a detailed discussion with the patient and/or guardian regarding the historical points, exam findings, and any diagnostic results supporting the discharge/admit diagnosis, lab results, radiology results, the need for further work-up and treatment in the hospital. 08/10 11:41 Order name: Basic Metabolic Panel; Complete Time: 13:48 rn 08/10 11:41 Order name: CBC with Diff; Complete Time: 13:48 rn 08/10 11:41 Order name: Hepatic Function; Complete Time: 13:48 rn 08/10 11:41 Order name: Magnesium; Complete Time: 13:48 rn 08/10 11:41 Order name: Protime (+inr); Complete Time: 13:48 rn 08/10 11:41 Order name: Ptt, Activated; Complete Time: 13:48 rn 08/10 11:41 Order name: Troponin High Sensitivity; Complete Time: 13:48 rn 08/10 11:41 Order name: Urinalysis w/ reflexes; Complete Time: 13:48 rn 08/10 12:49 Order name: Urine Culture EDMS 08/10 14:27 Order name: Urinalysis w/ reflexes EDMS 08/10 14:27 Order name: CBC with Automated Diff EDMS 08/10 14:27 Order name: CBC with Automated Diff EDMS 08/10 14:27 Order name: CBC with Automated Diff EDMS 08/10 14:27 Order name: CBC with Automated Diff EDMS 08/10 14:27 Order name: Comprehensive Metabolic Panel EDMS 08/10 14:27 Order name: Comprehensive Metabolic Panel EDMS 08/10 14:27 Order name: Comprehensive Metabolic Panel EDMS 08/10 14:27 Order name: Comprehensive Metabolic Panel EDMS 08/10 14:27 Order name: Lipid Profile EDMS 08/10 14:27 Order name: Lipid Profile EDMS 08/10 14:27 Order name: Magnesium EDMS 08/10 14:27 Order name: Magnesium EDMS 08/10 14:27 Order name: Blood Culture EDMS 08/10 14:31 Order name: Ferritin EDMS 08/10 14:31 Order name: Transferrin Sat/Iron Binding EDMS 08/10 11:41 Order name: CT Traumagram (Head C Spine CAP W Con); Complete Time: 13:48 rn 08/10 11:41 Order name: Chest Single View XRAY; Complete Time: 13:48 rn 08/10 11:44 Order name: XRAY Shoulder LEFT 2 view; Complete Time: 13:48 rn 08/10 14:15 Order name: Social Service Consult EDMS 08/10 14:27 Order name: Patient Safety Orders [facility] 08/10 14:27 Order name: CONS Physician Consult [facility] 08/10 11:41 Order name: Labs collected and sent; Complete Time: 11:50 rn 08/10 11:41 Order name: Cardiac monitoring; Complete Time: 11:49 rn 08/10 11:41 Order name: EKG - Nurse/Tech; Complete Time: 14:01 rn 08/10 11:41 Order name: IV Saline Lock; Complete Time: 11:49 rn 08/10 11:41 Order name: NPO; Complete Time: 11:49 rn 08/10 11:41 Order name: O2 Per Protocol; Complete Time: 11:49 rn 08/10 11:41 Order name: O2 Sat Monitoring; Complete Time: 11:49 rn 08/10 11:41 Order name: Wound Care; Complete Time: 12:56 rn 08/10 11:41 Order name: Wound dressing; Complete Time: 12:56 rn 08/10 11:43 Order name: Ice pack; Complete Time: 11:50 rn EC:40 Rate is 78 beats/min. Rhythm is regular. QRS interval is normal. QT interval is normal. rn T waves are Normal. No ST changes noted. Clinical impression: Paced rhythm. Interpreted by me. Reviewed by me. Administered Medications: 12:09 Drug: NS 0.9% IV 500 ml IV at bolus once Route: IV; Rate: bolus; Site: left forearm; bp 14:53 Follow up: IV Status: Completed infusion; IV Intake: 500ml bp 12:09 Drug: Acetaminophen PO 650 mg PO once Route: PO; bp 12:48 Follow up: Response: No adverse reaction bp 14:30 Drug: Rocephin IV 1 grams IV at calculated rate once; Given slow IV push per pharmacy bp instructions Route: IV; Rate: calculated rate; Site: left forearm; 14:53 Follow up: IV Status: Completed infusion; IV Intake: 100ml bp Disposition Summary: 08/11/23 14:11 Hospitalization Ordered Notes: Hospitalization Status: Observation rn Provider: Arpita Higgins rn Location: Telemetry/MedSurg (observation) rn Condition: Stable rn Problem: new rn Symptoms: have improved rn Bed/Room Type: Standard rn Room Assignment: 420(08/11/23 14:33) eb Diagnosis - Syncope rn - UTI/ Urinary tract infection, site not specified rn - Dehydration rn - Fracture of unspecified part of left clavicle, initial encounter for closed fracturern Forms: - Medication Reconciliation Form rn - SBAR form rn - Leadership Thank You Letter rn Signatures: Dispatcher [employer] [facility] Emory Anna MD MD rn Baxter, Heather, RN RN hb Peltier, Brian, RN Shahrzad Padilla Corrections: (The following items were deleted from the chart) 11:45 11:45 Shoulder Left 2 View+RAD.RAD.BRZ ordered. [facility] 11:49 11:45 Constitutional: This is a well developed, well nourished patient who is awake, rn alert, and in no acute distress. Head/Face: Normocephalic, moderate hematoma left forehead/christian with overlying abrasion, no laceration that required sutures. No active bleeding. Eyes: Pupils equal round and reactive to light, extra-ocular motions intact. Ecchymosis inferiorly to both eyes. No bony tenderness of socket ENT: No intraoral trauma noted Neck: No midline cervical tenderness Chest/axilla: Normal chest wall appearance and motion. Nontender with no deformity. No lesions are appreciated. Cardiovascular: Regular rate and rhythm. No pulse deficits. Respiratory: No increased work of breathing, no retractions or nasal flaring. Abdomen/GI: Soft, non-tender MS/ Extremity: Pulses equal, no cyanosis. Neurovascular intact. Full, normal range of motion. Equal circumference. Neuro: Awake and alert, GCS 15 rn 14:33 14:11 rn eb
--- NOTE | 2023-08-11 14:11 | ER ---
Nurse's Notes [facility] Name: Thong Mar Age: 72 yrs Sex: Male : 1950 Arrival Date: 08/11/2023 Time: 11:38 Bed 16 Private MD: Diagnosis: Syncope;UTI/ Urinary tract infection, site not specified;Dehydration;Fracture of unspecified part of left clavicle, initial encounter for closed fracture Presentation: 08/10 11:40 Chief complaint: EMS states: Left head hematoma and periorbital bruising after hb unwitnessed fall today. Pt remembers being outside taking out the trash then woke up on his couch. Coronavirus screen: At this time, the client does not indicate any symptoms associated with coronavirus-19. Ebola Screen: No symptoms or risks identified at this time. Initial Sepsis Screen: Does the patient meet any 2 criteria? No. Patient's initial sepsis screen is negative. Does the patient have a suspected source of infection? No. Patient's initial sepsis screen is negative. Risk Assessment: Do you want to hurt yourself or someone else? Patient reports no desire to harm self or others. Onset of symptoms was August 11, 2023. 11:40 Method Of Arrival: EMS: [facility] 11:40 Acuity: GAYATRI 2 11:43 Care prior to arrival: left elbow skin tear dressed. Mechanism of Injury: Fall unknown. Trauma event details: Injury occurred in the [facility], Injury occurred: at home. Injury occurred: August 11, 2023. Triage Assessment: 11:45 General: Appears in no apparent distress. Behavior is calm, cooperative, appropriate bp for age. Pain: Complains of pain in forehead. Injury Description: Bruise sustained to forehead. Trauma Activation: Not Applicable Physician: ED Physician; Name: ; Notified At: ; Arrived At: Physician: General Surgeon; Name: ; Notified At: ; Arrived At: Physician: Radiology; Name: ; Notified At: ; Arrived At: Physician: Respiratory; Name: ; Notified At: ; Arrived At: Physician: Lab; Name: ; Notified At: ; Arrived At: Historical: - Allergies: 11:42 No Known Drug Allergies; hb - PMHx: 11:42 chronic back pain; hypotension; Pacemaker; hb - Immunization history:: Adult Immunizations up to date. - Infectious Disease History:: Denies. - Social history:: Smoking status: Patient denies any tobacco usage or history of. - Family history:: not pertinent. - Hospitalizations: : No recent hospitalization is reported. Screenin:[facility] ED Fall Risk Assessment (Adult) History of falling in the last 3 months, bp including since admission No falls in past 3 months (0 pts). Abuse screen: Denies threats or abuse. Denies injuries from another. Nutritional screening: No deficits noted. Tuberculosis screening: No symptoms or risk factors identified. Assessment: 11:43 General: Appears in no apparent distress. Behavior is calm, cooperative. Pain: Pain hb currently is 8 out of 10 on a pain scale. Neuro: Level of Consciousness is awake, alert, obeys commands, Oriented to person, place, time, situation. EENT:. Cardiovascular: Patient's skin is warm and dry. Respiratory: Respiratory effort is even, unlabored, Respiratory pattern is regular, symmetrical. Injury Description: Head injury sustained to forehead bleeding, had loss of consciousness. 12:57 Reassessment: RETURNED FROM CT. bp 14:53 Reassessment: REPORT FAXED FOR RM 420. bp 15:00 Reassessment: TRANSPORT ON HOLD FOR ADMIT PROVIDER. bp Vital Signs: 11:40 BP 127 / 83; Pulse 68; Resp 16; Temp 98.1(TE); Pulse Ox 100% on R/A; Weight 68.04 kg; hb Height 5 ft. 11 in. ; Pain 8/10; 12:57 BP 128 / 65; Pulse 77; Resp 15; Pulse Ox 100% ; bp 14:53 BP 131 / 80; Pulse 70; Resp 16; Pulse Ox 99% ; bp 11:40 Body Mass Index 20.92 (68.04 kg, 180.34 cm) hb 11:40 Pain Scale: Adult hb ED Course: 11:39 Patient arrived in ED. hb 11:40 Emory Anna MD is Attending Physician. rn 11:41 Julian Garsia, UBALDO is Primary Nurse. bp 11:42 Triage completed. hb 11:42 Arm band placed on. hb 11:50 Basic Metabolic Panel Sent. bp 11:50 CBC with Diff Sent. bp 11:50 Urinalysis w/ reflexes Sent. bp 11:50 Troponin High Sensitivity Sent. bp 11:50 Ptt, Activated Sent. bp 11:50 Protime (+inr) Sent. bp 11:50 Magnesium Sent. bp 11:50 Hepatic Function Sent. bp 12:09 Hepatic Function Sent. bp 12:09 Magnesium Sent. bp 12:09 Troponin High Sensitivity Sent. bp 12:23 Chest Single View XRAY In Process Unspecified. EDMS 12:23 XRAY Shoulder LEFT 2 view In Process Unspecified. EDMS 12:50 CT Traumagram (Head C Spine CAP W Con) In Process Unspecified. EDMS 12:59 Patient has correct armband on for positive identification. bp 14:01 Urine Culture Sent. bp 14:10 Arpita Higgins MD is Hospitalizing Provider. rn 14:54 No provider procedures requiring assistance completed. Patient admitted, IV remains in bp place. 15:26 Provided Education on: N/A. bp Administered Medications: 12:09 Drug: NS 0.9% IV 500 ml IV at bolus once Route: IV; Rate: bolus; Site: left forearm; bp 14:53 Follow up: IV Status: Completed infusion; IV Intake: 500ml bp 12:09 Drug: Acetaminophen PO 650 mg PO once Route: PO; bp 12:48 Follow up: Response: No adverse reaction bp 14:30 Drug: Rocephin IV 1 grams IV at calculated rate once; Given slow IV push per pharmacy bp instructions Route: IV; Rate: calculated rate; Site: left forearm; 14:53 Follow up: IV Status: Completed infusion; IV Intake: 100ml bp Intake: 14:53 IV: 100ml; Total: 100ml. bp 14:53 IV: 500ml; Total: 600ml. bp Outcome: 14:11 Decision to Hospitalize by Provider. rn 14:54 Admitted to Med/surg accompanied by tech, via stretcher, room 420, with chart, bp 14:54 Condition: stable 14:54 Instructed on the need for admit, 15:38 Patient left the ED. eb Signatures: Dispatcher [employer] EDMS Emory Anna MD MD rn Baxter, Heather, RN RN hb Peltier, Brian, RN RN bp Botello, Elizabeth eb
--- NOTE | 2023-08-11 14:13 | P.HP ---
Certification for Inpatient Patient admitted to: Inpatient With expected LOS: >2 Midnights Patient will require the following post-hospital care: Assisted Practitioner: I am a practitioner with admitting privileges, knowledge of patient current condition, hospital course, and medical plan of care. Services: Services provided to patient in accordance with Admission requirements found in Title 42 Section 412.3 of the Code of Federal Regulations <Saira Cheatham Jean Carlos - Last Filed: 08/11/23 18:05> Patient History Date of Service: 08/11/23 Reason for admission: CHI, clavicle fx, Syncope, UTI, History of Present Illness: Mr. Mar is a very pleasant 72-year-old gentleman who spent a lot of time in [facility] and in inpatient rehab between June and June 2023. He has a history of anemia, hypotension, BPH, with a recent ESBL urine infection treated with Merrem via PICC x 2 weeks in June that prompted his inpatient rehab stay in June. Today Mr. Erickson, was walking with his walker, to a gate where he throws his trash away. He states he remembers falling so there is some question of mechanical fall versus syncope. He unfortunately landed on a curb on his left side. He has a large hematoma to his left forehead resulting in raccoon eyes; however, CT evaluation of his head and neck were negative for acute fracture or intracranial pathology. He did scrape his left shoulder and has a left clavicle fracture. He also skinned his left knee but was otherwise not traumatized. On evaluation in the emergency department, he is awake and alert although pale and bruised. He received Rocephin in the emergency department for an apparent urinary tract infection. We will admit him to inpatient services for further evaluation and treatment. Home medications list reviewed: Yes - Past Medical/Surgical History Diabetic: No -: chronic back pain -: hypotention -: cva -: BPH -: pacemaker Psychosocial/ Personal History: Lives alone. Has a walker and wheelchair. He states he has been doing his exercises that he learned in rehab - Family History Family History: Reviewed- Non-Contributory - Social History Smoking Status: Unknown if ever smoked Alcohol use: No CD- Drugs: No Caffeine use: No Place of Residence: Home <CheathamLeonorbisi Evangelista - Last Filed: 08/11/23 18:05> Date of Service: 08/11/23 <Arpita Higgins - Last Filed: 08/11/23 21:39> Allergies No Known Drug Allergies Allergy (Verified 05/23/23 16:12) Unknown Home Medications: Gabapentin 300 mg PO BEDTIME 05/23/23 Midodrine HCl [Proamatine*] 5 mg PO TID tab 05/27/23 Review of Systems 10-point ROS is otherwise unremarkable General: Weakness Genitourinary: As per HPI Musculoskeletal: As per HPI Integumentary: Bruising, As per HPI <Saira Cheatham - Last Filed: 08/11/23 18:05> Physical Examination - Physical Exam General: Alert, Oriented x3, Cooperative, Other (pale) HEENT: Normocephalic, Other (large hematoma over left eye, periorbital ecchymosis) Neck: JVD not distended Respiratory: Normal air movement Cardiovascular: No edema, Other (pacemaker), Irregular heart rate/rhythm Capillary refill: <2 Seconds Gastrointestinal: Soft and benign Musculoskeletal: Other (left shoulder tenderness with palpation) Integumentary: Other (large hematoma to left forehead, oozing, periorbital ecchymosis, abrasion to left shoulder, left elbow, left knee) Neurological: Normal speech, Normal tone, Normal affect, Other (alert and responsive, moves all extremities well) Lymphatics: No axilla or inguinal lymphadenopathy External genitalia: Deferred Rectal: Deferred - Studies Laboratory Data (last 24 hrs) 08/11/23 08/11/23 08/11/23 11:50 11:50 11:50 WBC 6.70 Hgb 9.6 L Hct 29.0 L Plt Count 197 PT 11.7 INR 1.07 APTT 34.4 Sodium 137 Potassium 5.4 H BUN 38 H Creatinine 1.30 Glucose 94 Magnesium 2.9 H Total Bilirubin 0.2 AST 20 ALT 18 Alkaline Phosphatase 71 <Saira Cheatham - Last Filed: 08/11/23 18:05> - Studies Laboratory Data (last 24 hrs) 08/11/23 08/11/23 08/11/23 11:50 11:50 11:50 WBC 6.70 Hgb 9.6 L Hct 29.0 L Plt Count 197 PT 11.7 INR 1.07 APTT 34.4 Sodium 137 Potassium 5.4 H BUN 38 H Creatinine 1.30 Glucose 94 Magnesium 2.9 H Total Bilirubin 0.2 AST 20 ALT 18 Alkaline Phosphatase 71 <Arpita Higgins Charline - Last Filed: 08/11/23 21:39> Assessment and Plan - Plan Mechanical fall vs syncope: Orthostatics Cardiac enzymes telemetry Head injury: neuro checks q 4h Consult Dr. Chi Consult vice president consulting services Anemia: check ferritin, iron, tibc - IV iron replacement trend hemoglobin Hypotension: Midodrine 5mg po TID trend blood pressure, vital signs UTI/hyperkalemia: Lokelma x one dose, trend chem 7 Urine culture Rocephin 1gm IVPB q 12h follow cultures low threshhold for PICC for IV abx/pressors prn Clavicle fracture: Sling to left arm pain management with close eval of blood pressure. abrasion/avulsions: mupirocin to nares BID DVT prophylaxis: SCDs 2nd to anemia, closed head injury GI prophylaxis: Protonix - Advance Directives Does patient have a Living Will: No Does patient have a Durable POA for Healthcare: No <Saira Cheatham - Last Filed: 08/11/23 18:05> Physician Review Additional Text: Pt seen and examined. I agree with the note by the PLUG SORTER. Pt is a 72 yo male with past medical history of chronic back pain and hypotension who presents in the ER s/p fall. He had a same level fall while taking trash to the dumpster and sustained head and neck injury. He noticed mild headache that was followed by mild neck and back pain. Of note, pt had massive BM after taking laxatives for constipation. At bedside, pt does not remember what happened but he remembers waking up on the floor. He has a left frontal hematoma with bilateral racoon eyes. On admission, lab studies show wbc 6.7. Hgb 9.6, K 5.4, Cr 1.3, glucose 94. A/p: Possible syncope: Will f/u orthostatic vitals, Echo, carotid ultrasound. Hyperkalemia: Likely due to Tal. Will improve with resolution of TAL. If not, give lokelma. TAL: Continue IVF, avoid nephrotoxins and monitor renal function. UTI: Continue rocpehin and f/u urine cx. Likely source of weakness left frontal hematoma: Continue care. Left clavicular fracture: Continue left shoulder sling and prn pain med. Generalized weakness: Will consult PT. DVT ppx: heparin Code: full <Arpita Higgins - Last Filed: 08/11/23 21:39>
[2023-08-11] MEDS ORDERED: CEFTRIAXONE 1000 MG/VIAL ONE (14:44)
[2023-08-11] MEDS ORDERED: NA CHLORIDE 0.9% 100 ML ONE (14:44)
[2023-08-11] MEDS: ENOXAPARIN 40 MG/0.4 ML SQ SCH (15:00)
[2023-08-11 15:33] LABS: Ferritin 74.8 ng/mL (26-388)
[2023-08-11] MEDS: SODIUM ZIRCONIUM CYCLOSILICATE 10 GM/PKT PO ONE (16:00)
[2023-08-11] MEDS: NA CHLORIDE 0.9% 1,000 ML IV SCH (16:00)
[2023-08-11 16:36] VITALS: BMI 20.9
[2023-08-11] MEDS: MIDODRINE HCL 5 MG TABLET PO SCH (20:20)
[2023-08-11] MEDS: MORPHINE 2 MG/ML SYR IV PRN (20:21)
[2023-08-11] MEDS: ENSURE ENLIVE 237 ML CAN PO SCH (20:21)
[2023-08-11] MEDS: GABAPENTIN 300 MG CAP PO SCH (20:21)
[2023-08-11] MEDS: Mupirocin NASAL 2 APPL/1 GM TUBE NAS SCH (20:21)
[2023-08-12 01:14] LABS: Specific Gravity > 1.030 (1.005-1.030); Sqamous Epithelial None Seen /HPF (None Seen); Urine Bacteria <20 /HPF (<20); Urine Bilirubin NEGATIVE (Negative); Urine Blood Negative (Negative); Urine Clarity Extremely Turbid (Clear); Urine Color Light-Yellow (Yellow); Urine Culture Reflex Order REFLEXED; Urine Glucose NEGATIVE (Negative); Urine Ketones NEGATIVE (Negative); Urine Microscopic Reflex YN ORDER UMIC; Urine Mucus 4+ /HPF (None Seen); Urine Nitrite NEGATIVE (Negative); Urine Protein NEGATIVE (Negative); Urine Urobilinogen Normal (Normal)
[2023-08-12 07:45] LABS: Absolute Eosinophils 0.2 K/uL (0-0.5); Absolute Lymphocytes (CBC) 0.9 K/uL (0.7-4.9); Absolute Monocytes 0.7 K/uL (0.1-1.3); Absolute Neutrophil 5.4 K/uL (1.8-8.0); Basophils % 0.5 % (0-1.3); Eosinophils % 3.5 % (0-4.4); Hematocrit 26.1 % (39.6-49.0); Hemoglobin 8.8 g/dL (13.6-17.9); Lymphocytes % 11.9 % (15.3-44.8); MCH 29.8 pg (27.0-35.0); MCHC 33.9 g/dL (32.0-36.0); Monocytes % 9.7 % (3.3-12.3); Neutrophils % 74.4 % (41.7-73.7); Platelets 181 thou/uL (152-406); RBC Red Blood Cell Count 2.96 M/uL (4.33-5.43); Red Cell Distribution Width 13.6 % (12.1-15.2)
[2023-08-12] MEDS: FLUDROCORTISONE 0.1 MG TAB PO SCH (08:03)
[2023-08-12] MEDS: CEFTRIAXONE 1,000 MG in NA CHLORIDE 0.9% 50 ML IVPB SCH (08:03)
[2023-08-12 08:04] LABS: Anion Gap 8.9 mEq/L (5.0-15.0); Potassium 4.9 mEq/L (3.5-5.1)
[2023-08-12 08:05] LABS: Albumin/Globulin Ratio 0.9 (1.1-1.8); Bilirubin Total 0.2 mg/dL (0.2-1.0); Globulin 3.2 g/dL (2.3-3.5); Magnesium 2.8 mg/dL (1.6-2.4); Protein, Total 6.2 g/dL (6.4-8.2); Troponin High Sensitivity 3.3 pg/mL (<58.9)
[2023-08-12] MEDS: SOD FERRIC GLUC COMPLX/SUCROSE 125 MG in NA CHLORIDE 0.9% 100 ML IV SCH (10:00)
--- NOTE | 2023-08-12 12:03 | P.PN ---
Subjective Date of Service: 08/12/23 Chief Complaint: CHI, clavicle fx, Syncope, UTI, Subjective: Improving (has sling to left arm) <Leonor Cheathambisi Evangelista - Last Filed: 08/12/23 11:59> Date of Service: 08/12/23 <Arpita Higgins Charline - Last Filed: 08/12/23 14:19> Review of Systems 10-point ROS is otherwise unremarkable General: Other (left forehead hematoma decreased in size), As per HPI Eyes: Other (ecchymosis less pronounced today) Genitourinary: As per HPI Integumentary: As per HPI <Saira Cheatham - Last Filed: 08/12/23 11:59> Physical Examination - Vital Signs Temperature: 97.6 F Blood Pressure: 102/59 Pulse: 69 Respirations: 20 Pulse Ox (%): 95 - Physical Exam General: Alert, In no apparent distress, Oriented x3, Cooperative HEENT: Normocephalic Neck: JVD not distended Respiratory: Normal air movement, Diminished Cardiovascular: Normal pulses Capillary refill: <2 Seconds Gastrointestinal: Soft and benign Musculoskeletal: No clubbing Integumentary: Other (abrasions to left shoulder, elbow, knee stable) Neurological: Normal speech, Normal tone Lymphatics: No axilla or inguinal lymphadenopathy External genitalia: Deferred Rectal: Deferred - Studies Laboratory Data (last 24 hrs) 08/11/23 08/11/23 08/11/23 11:50 11:50 11:50 WBC 6.70 Hgb 9.6 L Hct 29.0 L Plt Count 197 PT 11.7 INR 1.07 APTT 34.4 Sodium 137 Potassium 5.4 H BUN 38 H Creatinine 1.30 Glucose 94 Magnesium 2.9 H Total Bilirubin 0.2 AST 20 ALT 18 Alkaline Phosphatase 71 <Leonor Cheathambisi Evangelista - Last Filed: 08/12/23 11:59> Assessment And Plan - Plan Mechanical fall vs syncope: Orthostatics Cardiac enzymes telemetry Head injury: neuro checks q 4h Consult Dr. Chi Consult services executive Anemia: check ferritin, iron, tibc - IV iron replacement trend hemoglobin Hypotension: Midodrine 5mg po TID trend blood pressure, vital signs UTI/hyperkalemia: Lokelma x one dose, trend chem 7, 08/11 potassium improved Urine culture, 4/13 pending Rocephin 1gm IVPB q 12h follow cultures low threshhold for PICC for IV abx/pressors prn Clavicle fracture: Sling to left arm pain management with close eval of blood pressure. abrasion/avulsions: mupirocin to nares BID DVT prophylaxis: SCDs 2nd to anemia, closed head injury GI prophylaxis: Protonix <Saira Cheatham - Last Filed: 08/12/23 11:59> - Plan Pt seen and examined. I agree with the note by the MANAGER OFFICE. Continue to wear left shoulder sling. Continue prn pain med. Continue wound care <Arpita Higgins - Last Filed: 08/12/23 14:19>
[2023-08-13 03:40] LABS: Absolute Eosinophils 0.3 K/uL (0-0.5); Absolute Lymphocytes (CBC) 0.7 K/uL (0.7-4.9); Absolute Monocytes 0.7 K/uL (0.1-1.3); Absolute Neutrophil 5.6 K/uL (1.8-8.0); Basophils % 0.6 % (0-1.3); Eosinophils % 3.9 % (0-4.4); Hematocrit 27.5 % (39.6-49.0); Lymphocytes % 9.4 % (15.3-44.8); MCH 29.1 pg (27.0-35.0); MCHC 32.7 g/dL (32.0-36.0); MCV 88.9 fL (80-100); MPV 8.5 fL (7.6-11.3); Monocytes % 9.6 % (3.3-12.3); Neutrophils % 76.5 % (41.7-73.7); Platelets 172 thou/uL (152-406); Red Cell Distribution Width 13.3 % (12.1-15.2)
[2023-08-13 03:56] LABS: Albumin 2.8 g/dL (3.4-5.0); Albumin/Globulin Ratio 0.8 (1.1-1.8); Anion Gap 9.4 mEq/L (5.0-15.0); Bilirubin Total 0.3 mg/dL (0.2-1.0); Globulin 3.4 g/dL (2.3-3.5); Potassium 4.4 mEq/L (3.5-5.1); Protein, Total 6.2 g/dL (6.4-8.2)
--- NOTE | 2023-08-13 11:15 | P.PN ---
Subjective Date of Service: 08/13/23 Chief Complaint: CHI, clavicle fx, Syncope, UTI, Pt is resting comfortably in bed. Wearing a left shoulder sling. The forehead hematoma is improving. No other complaints overnight. Review of Systems General: Unremarkable Eyes: Unremarkable ENT: Unremarkable Respiratory: Unremarkable Cardiovascular: Unremarkable Gastrointestinal: Unremarkable Genitourinary: Unremarkable Musculoskeletal: Unremarkable Integumentary: Unremarkable Neurological: Unremarkable Lymphatics: Unremarkable Physical Examination - Vital Signs Temperature: 97.4 F Blood Pressure: 114/57 Pulse: 71 Respirations: 18 Pulse Ox (%): 98 - Physical Exam General: Alert, In no apparent distress, Oriented x3 HEENT: Atraumatic, Normocephalic, PERRLA Neck: Supple, 2+ carotid pulse no bruit Respiratory: Clear to auscultation bilaterally, Normal air movement Cardiovascular: No edema, Normal pulses, Regular rate/rhythm, Normal S1 S2 Capillary refill: <2 Seconds Gastrointestinal: Normal bowel sounds, Soft and benign, Non-distended Musculoskeletal: No clubbing, No swelling, Other (left shoulder sling in place du eto left clavicle fracture) Integumentary: No rashes, No breakdown, Skin lesion (Forehead hematoma, bruises on left shoulser and left knee) Neurological: Normal speech, Normal strength at 5/5 x4 extr, Normal tone, Sensation intact Lymphatics: No axilla or inguinal lymphadenopathy Assessment And Plan - Plan Mechanical fall vs syncope: Will f/u orthostatic vitals. Continue telemetry and fall precaution. Head injury: Due to the fall. Continue wound care and neuro checks q 4h. Consulted Dr. Chi Anemia: Hgb is 9.0. Monitor H/H. Will f/u iron studies. Hypotension: Will continue midodrine 5mg po TID and monitor vitals. UTI: Continue rocephina nd f/u urine cx. Hyperkalemia: Improved. K is 4.4 s/p lokelma. Clavicle fracture: Continue left shoulder sling and prn pain med. Abrasion/avulsions: Continue mupirocin to nares BID Deconditioning: Consulted PT. DVT ppx: SCDs GI ppx: Protonix Dispo: Pending hospital course. Pt may need SNF placement. Consulted director case management.
[2023-08-13] MEDS: DOCUSATE NA/SENNA CONC 1 TAB PO PRN (21:30)
[2023-08-14 03:57] LABS: Absolute Eosinophils 0.3 K/uL (0-0.5); Absolute Lymphocytes (CBC) 0.8 K/uL (0.7-4.9); Absolute Monocytes 0.8 K/uL (0.1-1.3); Absolute Neutrophil 4.9 K/uL (1.8-8.0); Basophils % 0.7 % (0-1.3); Eosinophils % 4.8 % (0-4.4); Hematocrit 28.1 % (39.6-49.0); Hemoglobin 9.3 g/dL (13.6-17.9); Lymphocytes % 11.9 % (15.3-44.8); MCH 29.5 pg (27.0-35.0); MCHC 33.1 g/dL (32.0-36.0); MPV 8.7 fL (7.6-11.3); Monocytes % 11.7 % (3.3-12.3); Neutrophils % 70.9 % (41.7-73.7); Platelets 168 thou/uL (152-406); RBC Red Blood Cell Count 3.16 M/uL (4.33-5.43); Red Cell Distribution Width 13.1 % (12.1-15.2)
[2023-08-14 04:18] LABS: Anion Gap 8.2 mEq/L (5.0-15.0); Potassium 4.2 mEq/L (3.5-5.1)
[2023-08-14 04:19] LABS: Albumin 2.8 g/dL (3.4-5.0); Albumin/Globulin Ratio 0.8 (1.1-1.8); Bilirubin Total 0.3 mg/dL (0.2-1.0); Globulin 3.6 g/dL (2.3-3.5); Protein, Total 6.4 g/dL (6.4-8.2)
--- NOTE | 2023-08-14 09:32 | P.PN ---
Subjective Date of Service: 08/14/23 Chief Complaint: CHI, clavicle fx, Syncope, UTI, Admitted for fall, unknown syncopal versus mechanical fall, bilateral periorbital ecchymosis, Wearing a left shoulder sling. The forehead hematoma is improving. No other complaints overnight. Microbiology ESBL in the urine, IV PICC line ordered for IV antibiotics, pending inpatient rehab placed - Physical Exam General: Alert, Oriented x3, Cooperative, Other (pale) HEENT: Normocephalic, Other (large hematoma over left eye, periorbital ecchymosis) Neck: JVD not distended Respiratory: Normal air movement Cardiovascular: No edema, Other (pacemaker), Irregular heart rate/rhythm Capillary refill: <2 Seconds Gastrointestinal: Soft and benign Musculoskeletal: Other (left shoulder tenderness with palpation) Integumentary: Other (large hematoma to left forehead, oozing, periorbital ecchymosis, abrasion to left shoulder, left elbow, left knee) Neurological: Normal speech, Normal tone, Normal affect, Other (alert and responsive, moves all extremities well) Lymphatics: No axilla or inguinal lymphadenopathy Review of Systems Per HPI Physical Examination - Vital Signs Temperature: 98.5 F Blood Pressure: 121/72 Pulse: 70 Respirations: 16 Pulse Ox (%): 97 Assessment And Plan - Plan Assessment And Plan Mechanical fall vs syncope: Will f/u orthostatic vitals. Continue telemetry and fall precaution. Fall Head injury: Clavicle fracture: Continue left shoulder sling and prn pain med. CT of the shoulder FINDINGS/IMPRESSION: Mildly displaced fracture at the lateral third of the clavicle. The fracture is mildly comminuted. No extension to the AC joint. No other fractures identified CT of the head IMPRESSION: No acute traumatic finding Abrasion/avulsions: Continue mupirocin to nares BID Deconditioning: Consulted PT. Due to the fall. Continue wound care and neuro checks q 4h. Consulted Dr. Chi Anemia: Hgb is 9.0. Monitor H/H. Will f/u iron studies. Hypotension: Will continue midodrine 5mg po TID and monitor vitals. Acute cystitis without hematuria ESBL in the urine UTI: Continue rocephina nd f/u urine cx. IV antibiotics for Merrem, will need PICC line for IV antibiotics, inpatient rehab placed Hyperkalemia: Improved. K is 4.4 s/p lokelma. DVT ppx: SCDs GI ppx: Protonix Dispo: Inpatient rehab IV antibiotics for ESBL of the urine, Discharge Plan: Long-Term - Code Status/Comfort Care Code Status: Full Code Critical Care: No Time Spent Managing PTS Care (In Minutes): 35
[2023-08-14] MEDS: DOCUSATE NA/SENNA CONC 1 TAB PO ONE (17:09)
[2023-08-14] MEDS: CODEINE 30MG/APAP 300MG TAB PO PRN (17:13)
[2023-08-14] MEDS: Meropenem 1,000 MG in NA CHLORIDE 0.9% 100 ML IV SCH (18:31)
[2023-08-14] MEDS ORDERED: Mupirocin NASAL 2 APPL/1 GM TUBE NAS SCH (21:00)
[2023-08-15 04:20] LABS: Hematocrit 27.1 % (39.6-49.0); Hemoglobin 8.8 g/dL (13.6-17.9); Lymphocytes % 7.9 % (15.3-44.8); MCH 28.7 pg (27.0-35.0); MCHC 32.5 g/dL (32.0-36.0); MCV 88.4 fL (80-100); MPV 8.5 fL (7.6-11.3); Neutrophils % 76.4 % (41.7-73.7); Platelets 168 thou/uL (152-406); RBC Red Blood Cell Count 3.07 M/uL (4.33-5.43)
[2023-08-15 04:21] LABS: Absolute Eosinophils 0.3 K/uL (0-0.5); Absolute Lymphocytes (CBC) 0.6 K/uL (0.7-4.9); Absolute Monocytes 0.9 K/uL (0.1-1.3); Absolute Neutrophil 5.7 K/uL (1.8-8.0); Basophils % 0.4 % (0-1.3); Eosinophils % 3.6 % (0-4.4); Monocytes % 11.7 % (3.3-12.3)
[2023-08-15 04:36] LABS: Anion Gap 9.1 mEq/L (5.0-15.0); Magnesium 2.1 mg/dL (1.6-2.4); Potassium 4.1 mEq/L (3.5-5.1)
--- NOTE | 2023-08-15 18:10 | P.PN ---
Subjective Date of Service: 08/15/23 Chief Complaint: CHI, clavicle fx, Syncope, UTI, Admitted for fall, unknown syncopal versus mechanical fall, bilateral periorbital ecchymosis, Wearing a left shoulder sling. The forehead hematoma is improving. No other complaints overnight. Microbiology ESBL in the urine, IV PICC line ordered for IV antibiotics, pending inpatient rehab placed No reported fever overnight, - Physical Exam General: Alert, Oriented x3, Cooperative, Other (pale) HEENT: Normocephalic, Other (large hematoma over left eye, periorbital ecchymosis) Neck: JVD not distended Respiratory: Normal air movement Cardiovascular: No edema, Other (pacemaker), Irregular heart rate/rhythm Capillary refill: <2 Seconds Gastrointestinal: Soft and benign Musculoskeletal: Other (left shoulder tenderness with palpation) Integumentary: Other (large hematoma to left forehead, oozing, periorbital ecchymosis, abrasion to left shoulder, left elbow, left knee) Neurological: Normal speech, Normal tone, Normal affect, Other (alert and responsive, moves all extremities well) Lymphatics: No axilla or inguinal lymphadenopathy Review of Systems Per HPI Physical Examination - Vital Signs Temperature: 97.7 F Blood Pressure: 112/64 Pulse: 70 Respirations: 16 Pulse Ox (%): 96 - Studies Microbiology Data (last 24 hrs): 08/11/23 12:27 Clean Catch Urine [place] Count - Final >100,000 CFU/ML. 08/11/23 12:27 Clean Catch Urine - Final Escherichia Coli Esbl Assessment And Plan - Plan Assessment And Plan Mechanical fall vs syncope: Will f/u orthostatic vitals. Continue telemetry and fall precaution. Fall Head injury: Clavicle fracture: Continue left shoulder sling and prn pain med. CT of the shoulder FINDINGS/IMPRESSION: Mildly displaced fracture at the lateral third of the clavicle. The fracture is mildly comminuted. No extension to the AC joint. No other fractures identified CT of the head IMPRESSION: No acute traumatic finding Abrasion/avulsions: Continue mupirocin to nares BID Deconditioning: Consulted PT. Due to the fall. Continue wound care and neuro checks q 4h. Consulted Dr. Chi Anemia: Hgb is 9.0. Monitor H/H. Will f/u iron studies. Hypotension: Will continue midodrine 5mg po TID and monitor vitals. Acute cystitis without hematuria ESBL in the urine UTI: Continue rocephina nd f/u urine cx. IV antibiotics for Merrem, will need PICC line for IV antibiotics, inpatient rehab placed Hyperkalemia: Improved. K is 4.4 s/p lokelma. DVT ppx: SCDs GI ppx: Protonix Dispo: Inpatient rehab IV antibiotics for ESBL of the urine, Discharge Plan: Other (Inpatient rehab pending) - Code Status/Comfort Care Code Status: Full Code Critical Care: No Time Spent Managing PTS Care (In Minutes): 35
[2023-08-16 06:54] LABS: Albumin 2.7 g/dL (3.4-5.0); Anion Gap 8.1 mEq/L (5.0-15.0); Phosphorus 2.5 mg/dL (2.5-4.9); Potassium 4.1 mEq/L (3.5-5.1)
--- NOTE | 2023-08-16 08:11 | P.PN ---
Subjective Date of Service: 08/16/23 Chief Complaint: CHI, clavicle fx, Syncope, UTI, Admitted for fall, unknown syncopal versus mechanical fall, bilateral periorbital ecchymosis, Wearing a left shoulder sling. The forehead hematoma is improving. No other complaints overnight. Microbiology ESBL in the urine, IV PICC line ordered for IV antibiotics, pending inpatient rehab placed No reported fever overnight, - Physical Exam General: Alert, Oriented x3, Cooperative, Other (pale) HEENT: Normocephalic, Other (large hematoma over left eye, periorbital ecchymosis) Neck: JVD not distended Respiratory: Normal air movement Cardiovascular: No edema, Other (pacemaker), Irregular heart rate/rhythm Capillary refill: <2 Seconds Gastrointestinal: Soft and benign Musculoskeletal: Other (left shoulder tenderness with palpation) Integumentary: Other (large hematoma to left forehead, oozing, periorbital ecchymosis, abrasion to left shoulder, left elbow, left knee) Neurological: Normal speech, Normal tone, Normal affect, Other (alert and responsive, moves all extremities well) Lymphatics: No axilla or inguinal lymphadenopathy Physical Examination - Vital Signs Temperature: 96.9 F Blood Pressure: 111/61 Pulse: 70 Respirations: 16 Pulse Ox (%): 96 Assessment And Plan - Plan Assessment And Plan Mechanical fall vs syncope: Will f/u orthostatic vitals. Continue telemetry and fall precaution. Fall Head injury: Clavicle fracture: Continue left shoulder sling and prn pain med. CT of the shoulder FINDINGS/IMPRESSION: Mildly displaced fracture at the lateral third of the clavicle. The fracture is mildly comminuted. No extension to the AC joint. No other fractures identified CT of the head IMPRESSION: No acute traumatic finding Abrasion/avulsions: Continue mupirocin to nares BID Deconditioning: Consulted PT. Due to the fall. Continue wound care and neuro checks q 4h. Consulted Dr. Chi Anemia: Hgb is 9.0. Monitor H/H. Will f/u iron studies. Hypotension: Will continue midodrine 5mg po TID and monitor vitals. Acute cystitis without hematuria ESBL in the urine UTI: Continue rocephina nd f/u urine cx. IV antibiotics for Merrem, will need PICC line for IV antibiotics, inpatient rehab placed Hyperkalemia: Improved. K is 4.4 s/p lokelma. DVT ppx: SCDs GI ppx: Protonix Dispo: Inpatient rehab IV antibiotics for ESBL of the urine,
--- NOTE | 2023-08-16 15:04 | P.DS ---
Admission Date: 08/11/23 Discharge Date: 08/17/23 Disposition: TRANSFER TO INPATIENT REHAB Discharge Condition: GOOD Reason for Admission: CHI, clavicle fx, Syncope, UTI, Brief History of Present Illness: Mr. Mar is a very pleasant 72-year-old gentleman who spent a lot of time in [facility] and in inpatient rehab between June and June 2023. He has a history of anemia, hypotension, BPH, with a recent ESBL urine infection treated with Merrem via PICC x 2 weeks in June that prompted his inpatient rehab stay in June. Today Mr. Erickson, was walking with his walker, to a gate where he throws his trash away. He states he remembers falling so there is some question of mechanical fall versus syncope. He unfortunately landed on a curb on his left side. He has a large hematoma to his left forehead resulting in raccoon eyes; however, CT evaluation of his head and neck were negative for acute fracture or intracranial pathology. He did scrape his left shoulder and has a left clavicle fracture. He also skinned his left knee but was otherwise not traumatized. On evaluation in the emergency department, he is awake and alert although pale and bruised. He received Rocephin in the emergency department for an apparent urinary tract infection. We will admit him to inpatient services for further evaluation and treatment. - Physical Exam General: Alert, Oriented x3, Cooperative, Other (pale) HEENT: Normocephalic, Other (large hematoma over left eye, periorbital ecchymosis) Neck: JVD not distended Respiratory: Normal air movement Cardiovascular: No edema, Other (pacemaker) Capillary refill: <2 Seconds Gastrointestinal: Soft and benign Musculoskeletal: Other (left shoulder tenderness with palpation) Integumentary: Other (large hematoma to left forehead, oozing, periorbital ecc hymosis, abrasion to left shoulder, left elbow, left knee) Neurological: Normal speech, Normal tone, Normal affect, Other (alert and responsive, moves all extremities well) Lymphatics: No axilla or inguinal lymphadenopathy Hospital Course: 72 year-old male patient presented with mechanical fall. Was noted to have left clavicle clavicle fracture, ESBL in the urine. Condition improved with physical therapy, IV antibiotics, as needed analgesics. Patient tolerating diet, stable for discharge to inpatient rehab with follow-up appointment with primary care physician. Follow-up with orthopedic outpatient. transition to acute in patient rehab for IV antibiotics, strengthening, continued gait training PROBLEM: Mechanical fall Clavicle fracture Closed head injury ESBL the urine IV Merrem 10 days on day 7 of 10 anemia, Po iron added daily Transfer to acute inpatient rehab, encourage incentive spirometer, fall preca utions Continue home medicines as previously prescribed GOAL: Clear understanding of disease process INSTRUCTIONS: Physician Discharge Instructions: -Follow-up with PCP in 1 to 2 weeks -Please call Dr. Ricardo at [phone] if any questions regarding hospital stay -Please call nursing station at [phone] if any nursing or medication questions -Return to the emergency room if symptoms worsen Diet: ADA, low sodium Activity: Fall precautions Vital Signs/Physical Exam: Temp Pulse Resp BP Pulse Ox 96.9 F 70 16 111/61 96 08/16/23 14:59 08/16/23 14:59 08/16/23 14:59 08/16/23 14:59 08/16/23 14:59 Laboratory Data at Discharge: WBC 7.40 thou/uL (4.3-10.9) 08/15/23 03:35 Hgb 8.8 g/dL (13.6-17.9) L 08/15/23 03:35 Hct 27.1 % (39.6-49.0) L 08/15/23 03:35 Plt Count 168 thou/uL (152-406) 08/15/23 03:35 PT 11.7 SECONDS (9.5-12.5) 08/11/23 11:50 INR 1.07 08/11/23 11:50 APTT 34.4 SECONDS (24.3-36.9) 08/11/23 11:50 Sodium 138 mEq/L (136-145) 08/16/23 06:20 Potassium 4.1 mEq/L (3.5-5.1) 08/16/23 06:20 BUN 26 mg/dL (7-18) H 08/16/23 06:20 Creatinine 0.96 mg/dL (0.70-1.30) 08/16/23 06:20 Glucose 97 mg/dL (74-106) 08/16/23 06:20 Phosphorus 2.5 mg/dL (2.5-4.9) 08/16/23 06:20 Magnesium 2.1 mg/dL (1.6-2.4) 08/15/23 03:35 Total Bilirubin 0.3 mg/dL (0.2-1.0) 08/14/23 03:02 AST 20 U/L (15-37) 08/14/23 03:02 ALT 14 U/L (16-61) L 08/14/23 03:02 Alkaline Phosphatase 59 U/L (45-117) 08/14/23 03:02 Triglycerides 79 mg/dL (<150) 08/12/23 07:20 Cholesterol 153 mg/dL (<200) 08/12/23 07:20 HDL Cholesterol 45 mg/dL (40-60) 08/12/23 07:20 Cholesterol/HDL Ratio 3.40 08/12/23 07:20 Home Medications: Gabapentin 300 mg PO BEDTIME 05/23/23 Midodrine HCl [Proamatine*] 5 mg PO TID tab 05/27/23 Codeine/APAP [Tylenol #3*] 1 tab PO Q4H PRN tab 08/17/23 Docusate/Senna [Senokot-S*] 2 tab PO BEDTIME PRN tab 08/17/23 Ensure Enlive 237 ml PO BID can 08/17/23 Ferrous Gluconate 240 mg PO DAILY #30 tab 08/17/23 Fludrocortisone [Florinef *] 0.1 mg PO DAILY tab 08/17/23 Meropenem-0.9% Sodium Chloride [Meropenem-0.9% NaCl 1 Gram/50] 1 gm IV DAILY #7 ml 08/17/23 Midodrine HCl [Proamatine*] 5 mg PO TID tab 08/17/23 New Medications: Ferrous Gluconate 240 mg PO DAILY #30 tab Meropenem-0.9% Sodium Chloride [Meropenem-0.9% NaCl 1 Gram/50] 1 gm IV DAILY #7 ml Physician Discharge Instructions: 72 year-old male patient presented with mechanical fall. Was noted to have left clavicle clavicle fracture, ESBL in the urine. Condition improved with physical therapy, IV antibiotics, as needed analgesics. Patient tolerating diet, stable for discharge to inpatient rehab with follow-up appointment with primary care physician. Follow-up with orthopedic outpatient, transition to acute in patient rehab for IV antibiotics, strengthening, continued gait training PROBLEM: Mechanical fall Clavicle fracture Closed head injury ESBL the urine IV Merrem complete 10 days, on day 7 of 10 anemia -po iron complex added Transfer to acute inpatient rehab, encourage incentive spirometer, fall precautions Continue home medicines as previously prescribed GOAL: Clear understanding of disease process INSTRUCTIONS: Physician Discharge Instructions: -Follow-up with PCP in 1 to 2 weeks -Please call Dr. Ricardo at [phone] if any questions regarding hospital stay -Please call nursing station at [phone] if any nursing or medication questions -Return to the emergency room if symptoms worsen Diet: ADA, low sodium Activity: Fall precautions Diet: AHA Activity: Fall precautions Time spent managing pt's care (in minutes): 55
[2023-08-16 21:46] VITALS: O2SAT 97
[2023-08-17 05:23] LABS: Albumin 2.6 g/dL (3.4-5.0); Anion Gap 7.4 mEq/L (5.0-15.0); Potassium 4.4 mEq/L (3.5-5.1)
[2023-08-17 08:31] VITALS: BP 164/82; TEMP 98.9
== END 2023-08-17 09:00 | DRG 563 ==
LOC: ER 11:38 → ERHOLD 14:21 → 4TH 14:44
PROVIDERS: ADMIT Hospitalist; ATTEND Hospitalist
PROC: 02HV33Z Insertion of Infusion Device into Superior Vena Cava, Percutaneous Approach (ICD-10-PCS; principal; 2023-08-14)
DX: S42.032A Displaced fracture of lateral end of left clavicle, initial encounter for closed fracture (principal); N17.9 Acute kidney failure, unspecified; Z16.12 Extended spectrum beta lactamase (ESBL) resistance; N30.00 Acute cystitis without hematuria; E87.5 Hyperkalemia; K59.00 Constipation, unspecified; G89.29 Other chronic pain; M54.9 Dorsalgia, unspecified; E86.0 Dehydration; D64.9 Anemia, unspecified; I95.9 Hypotension, unspecified; N40.0 Benign prostatic hyperplasia without lower urinary tract symptoms; S05.12XA Contusion of eyeball and orbital tissues, left eye, initial encounter; R55 Syncope and collapse; Z60.2 Problems related to living alone; Z95.0 Presence of cardiac pacemaker; Z86.73 Personal history of transient ischemic attack (TIA), and cerebral infarction without residual deficits; Z79.899 Other long term (current) drug therapy; W18.30XA Fall on same level, unspecified, initial encounter; Y93.89 Activity, other specified; Y92.9 Unspecified place or not applicable; Y99.9 Unspecified external cause status
CPT/HCPCS: 36415; 70450; 71045; 71260; 72125; 74177; 80048; 80053; 80061; 80069; 80076; 81001; 82728; 83540; 83735; 84466; 84484; 85025; 85610; 85730; 87077; 87086; 87088; 87186; 93005; 96361; 96365; 97112; 97116; 97161; 97530; 99285; J0696; J2185; J2270; J2916; J7030; J7040; Q9967

== ENCOUNTER 2023-08-17 09:00 | Inpatient (IN) | payer OTHER ==
[2023-08-17] MEDS ORDERED: DOCUSATE NA/SENNA CONC 1 TAB PO PRN (10:03)
[2023-08-17 11:22] LABS: Specific Gravity 1.014 (1.005-1.030); Sqamous Epithelial <5 /HPF (None Seen); Transitional Epithelial <5 /HPF (None Seen); Urine Bacteria <20 /HPF (<20); Urine Bilirubin NEGATIVE (Negative); Urine Blood Negative (Negative); Urine Clarity Turbid (Clear); Urine Color Light-Yellow (Yellow); Urine Culture Reflex Order REFLEXED; Urine Glucose NEGATIVE (Negative); Urine Ketones NEGATIVE (Negative); Urine Micro Reflex YN NO BILL MICROSCOPIC; Urine Mucus Slight /HPF (None Seen); Urine Nitrite NEGATIVE (Negative); Urine Protein NEGATIVE (Negative); Urine RBC <5 /HPF (None Seen); Urine Urobilinogen Normal (Normal); Urine WBC 20-50 /HPF (<5)
[2023-08-17] MEDS: CODEINE 30MG/APAP 300MG TAB PO PRN (12:12)
[2023-08-17] MEDS: MIDODRINE HCL 5 MG TABLET PO SCH (13:15)
[2023-08-17] MEDS: LIDOCAINE 4% PATCH TOP SCH (15:45)
[2023-08-17 17:21] VITALS: BMI 20.2
[2023-08-17] MEDS: Meropenem 1,000 MG in NA CHLORIDE 0.9% 100 ML IV SCH (20:34)
[2023-08-17] MEDS: DOCUSATE NA/SENNA CONC 1 TAB PO SCH (20:35)
[2023-08-17] MEDS: ENSURE ENLIVE 237 ML CAN PO SCH (20:35)
[2023-08-17] MEDS: GABAPENTIN 300 MG CAP PO SCH (20:35)
[2023-08-17] MEDS: APIXABAN 2.5 MG TABLET PO SCH (20:35)
--- NOTE | 2023-08-17 23:26 | HP ---
Date of Admission: 08/17/2023 Time Of Service: 1 p.m. Chief Complaint: "I fell and I have a bladder infection." History Of Present Illness: Mr. Mar is a 72-year-old patient, who has prostate hypertrophy, was recently admitted to the hospital with ESBL urinary tract infection, [facility] He was discharged home to continue therapy via Home Health, ambulating with a rolling walker. On the 10 of August, he took trash out and parked his wheelchair which he was using and ambulated 15 feet with trash can. He threw the trash in his dumpster, fell and hit his left barbara e. He hit his head, neck, and upper and lower extremity. He has a large hematoma on the left head a nd bruising in the neck and arm. Imaging did show a left clavicular fracture. The fracture was mild ly displaced of the lateral third of the clavicle and mildly comminuted. There was no extension into the AC joint or other fractures identified. CT scan of the head showed a left frontal scalp hematom a. Head CT scan otherwise showed no acute intracranial findings. Chest x-ray showed no acute cardio pulmonary disease. Blood work did show slightly low hemoglobin and hematocrit. Magnesium 2.9, BUN 3 8. His urinalysis suggested urinary tract infection for which he was treated with Rocephin. He did have a PICC line placed to continue longer-term antibiotics. He did have hyperkalemia which did impr ove with hydration. He was evaluated by the Therapy Service and found to be requiring moderate faustino tance for bed mobilization transfers and zof-cd-xalrq required minimum assistance and to begin to amb ulate, he did go 80 feet with minimal assistance with IV pump in place and mobilizing with them. No significant dizziness and working with physical therapy. The patient was determined to be an appropr iate candidate for aggressive inpatient rehabilitation for him to improve his ability to return to [facility] functioning, ambulating safely, and to have his medical conditions managed. Past Medical And Surgical History: Chronic back pain, hypertension, coronary artery bypass grafting with recovery, benign prostatic hypertrophy, and cardiac pacemaker placement. Allergies: NO KNOWN DRUG ALLERGIES. Medications: Tylenol with Codeine, Tylenol No. 3, 1 every 4 hours as needed, Eliquis 2.5 mg twice da varun, Dulcolax 10 per rectum as needed, Fergon 324 mg daily, Florinef 0.1 mg daily, gabapentin 300 mg at bedtime, lidocaine 1 patch daily, meropenem 1000 mg every 12 hours, midodrine 5 mg 3 times daily, Ensure Enlive 237 mL twice daily, and Senokot-S 2 at bedtime. Social History: The patient lives at home, single-story home with some family available. No alcohol , tobacco, or IV drug use. Family History: Noncontributory. Review of Systems: Head and Neck: He does have the hematoma as noted on the left frontal scalp, otherwise some bruising in the left neck, left shoulder, and arm. His left arm is in a sling, where he has the mildly displ aced left clavicular fracture noted. Lungs: Good air movement. Abdomen: Soft. Extremities: No significant edema or cyanosis in the extremities. Current Level Of Functioning: Currently, he is at supervision for eating, oral hygiene, moderate ass istance for toileting, showering, upper body dressing, lower body dressing, donning and doffing of fo otwear, all moderate assistance. For rolling mgbdi-it-mycp, grt-ou-rbeyj, tab-wh-eqxsq, nizdl-de-cfu ting, moderate assistance required. Toileting transfers, moderate assistance. Ambulation 150 feet w ith a quad cane with moderate assistance. Did have some pain as he ambulated. Physical Examination: Vital Signs: Blood pressure 172/64, pulse 69, respiratory rate 18, temperature is 98.9, oxygen satur ation 97%. General: Mr. Mar again is sitting in a chair getting ready to do therapy. The left arm is in a sling. There is some left shoulder pain as he notes and some bruising on the left forehead, face, a nd arm. HEENT: Sclerae anicteric. Oropharynx moist. Neck: Supple. Chest: Appears clear. Heart: Regular. Abdomen: No distention. Extremities: Show no significant edema, cyanosis, or clubbing. In terms of strength, his right side fully strong. Left side, the left arm in a sling due to the clavicular fracture. He is bearing nico ght in the left arm at this point. Laboratory Studies: White blood cell count 7.4, hemoglobin 8.8, platelets 168. INR 1.07. Sodium 13 8, potassium 4.4, chloride 107, carbon dioxide 28, BUN 32, creatinine 1.11, glucose 98, calcium 8.6, phosphorus 3.0, albumin is 2.6, AST 20, ALT 14, alkaline phosphatase 59. Rehabilitation And Medical Assessment And Plan: Mr. Mar is a 72-year-old patient in the rehabil itation unit with impairment category 20, miscellaneous. His impairment group code is 16, debility, noncardiac, nonpulmonary. His etiologic diagnosis is acute cystitis without hematuria. Comorbiditie s are anemia, decreased physical functioning, decreased mobility, hyperkalemia, syncope with weakness , prior stroke, left clavicular fracture, anemia, mild malnutrition. Plan: 1.He will have physical, occupational, and speech therapy for 3.5 hours, 5 of 7 days. 2.Pain will be managed with Tylenol No. 3. 3.Eliquis 2.5 mg twice daily for DVT prophylaxis, Dulcolax and Senokot for constipation, Ensure Enli ve for malnutrition, midodrine and Florinef for pressure support. Continue with meropenem for his ur inary tract infection, gabapentin 300 mg at bedtime for neuropathic pain, lidocaine patch apply to th e left shoulder, ferrous gluconate used for iron deficiency anemia. Comorbidities That Are Impacting Rehabilitation: He does have a risk of loss of balance and falling again. Fall precautions will be adhered to strictly. A gait belt and chair alarm placed if need be. Urinary tract infection is addressed by his IV antibiotics. Therapy will be worked around his anti biotics as scheduled. He has clavicular fracture with the left arm in a sling with the bearing weigh t. We will have a repeat interval x-ray to evaluate for any further change as appropriate. Rehab Specific Plan: Mr. Mar will have the left arm in a sling nonweightbearing. He will work on transfers using a right upper extremity and both lower extremities. His capacity to ambulate and to mobilize a wheelchair will be worked on with physical therapy, ability to dress upper and lower ventura dy, donning and doffing footwear. He has adaptive equipment, work with occupational therapy. We nan l have speech therapy to evaluate cognitive functioning, review safety strategies, and planning on [place] for him to manage medications and physician followup. He will have correction 24 hours a day, 7 days a week. He will have physician evaluation and ma tino on a daily basis. [employer] Se[employer] evaluation and management for discharge planning, home eq uipment and help minimize rehospitalization. Mr. Mar has a good understanding of the process of admission to inpatient rehabilitation facilit y. He will benefit from physical, occupational, and speech therapy. If need be, additional help fro m the Orthopedic Service, Infectious Disease Service, and Hospitalist Service will be consulted. Giv en his complex medical condition and risk of further complications, rehabilitation cannot be safely o r effectively performed at a lower level facility such as correction. By his discharge, currently IV antibiotics is given for a period of time. He does have no weightbear ing on that left upper extremity due to clavicular fracture and he required extended period of time t o heal. May consider a correction. Length Of Stay: About 12 days. Disposition: Home with Home Health and therapy to continue. Prognosis: Good. Rehab Goals: 1.Become independent with upper and lower body dressing, toileting, donning and doffing footwear, an d showering. 2.Independently ambulate 250 feet with a left platform walker. 3.Independently propel a wheelchair 250 feet. 4.Independently go up and down 10 steps with right-sided handrail. 5.Independently perform cognitive functioning. The above goals were reviewed with Mr. Mar and he is in agreement. By signing this document, I acknowledge I personally performed a full physical examination on Mr. New joseph no later than 24 hours after his admission to the inpatient rehabilitation facility and determi tanvi that he is able to tolerate the above course of treatment at an intensive level for a reasonable period of time. A detailed individualized plan of care for him will be completed by hospital day 4 based on the preadmission screen, history and phy sical, and therapy evaluations. AMADOU/UZMA Voice ID: [id number]
[2023-08-18 05:25] LABS: Absolute Eosinophils 0.3 K/uL (0-0.5); Absolute Monocytes 0.6 K/uL (0.1-1.3); Absolute Neutrophil 2.6 K/uL (1.8-8.0); Eosinophils % 5.8 % (0-4.4); Hematocrit 26.4 % (39.6-49.0); Hemoglobin 8.9 g/dL (13.6-17.9); MCH 29.4 pg (27.0-35.0); MCHC 33.7 g/dL (32.0-36.0); MCV 87.3 fL (80-100); MPV 7.4 fL (7.6-11.3); Neutrophils % 58.2 % (41.7-73.7); Nucleated Red Blood Cells % 0.2 % (0-0); Platelets 174 thou/uL (152-406); RBC Red Blood Cell Count 3.03 M/uL (4.33-5.43); Red Cell Distribution Width 13.1 % (12.1-15.2)
[2023-08-18 05:42] LABS: Albumin 2.9 g/dL (3.4-5.0); Anion Gap 4.9 mEq/L (5.0-15.0); Magnesium 2.2 mg/dL (1.6-2.4); Potassium 4.9 mEq/L (3.5-5.1); Prealbumin 19.5 mg/dL (20-40)
[2023-08-18] MEDS: MIDODRINE HCL 5 MG TABLET PO SCH (06:31)
[2023-08-18] MEDS: FLUDROCORTISONE 0.1 MG TAB PO SCH (08:46)
[2023-08-18] MEDS: FERROUS GLUCONATE 324 MG TAB PO SCH (09:06)
--- NOTE | 2023-08-18 13:54 | P.RH.PN ---
Estimated Length of Stay: 13 Expected Discharge Date: 08/29/23 Discharge Disposition Plan: Home Family Support: Yes [facility] Goal: Mobility, Transfers, Self Care Vital Signs: Last Vital Signs Temp 97.4 F 08/18/23 08:00 Pulse 69 08/18/23 08:00 Resp 16 08/18/23 13:40 BP 117/66 08/18/23 08:00 Pulse Ox 97 08/18/23 13:40 Laboratory: Laboratory Last Values WBC 4.50 thou/uL (4.3-10.9) 08/18/23 05:15 RBC 3.03 M/uL (4.33-5.43) L 08/18/23 05:15 Hgb 8.9 g/dL (13.6-17.9) L 08/18/23 05:15 Hct 26.4 % (39.6-49.0) L 08/18/23 05:15 MCV 87.3 fL (80-100) 08/18/23 05:15 MCH 29.4 pg (27.0-35.0) 08/18/23 05:15 MCHC 33.7 g/dL (32.0-36.0) 08/18/23 05:15 RDW 13.1 % (12.1-15.2) 08/18/23 05:15 Plt Count 174 thou/uL (152-406) 08/18/23 05:15 MPV 7.4 fL (7.6-11.3) L 08/18/23 05:15 Neutrophils % 58.2 % (41.7-73.7) 08/18/23 05:15 Lymphocytes % 22.0 % (15.3-44.8) 08/18/23 05:15 Monocytes % 13.0 % (3.3-12.3) H 08/18/23 05:15 Eosinophils % 5.8 % (0-4.4) H 08/18/23 05:15 Basophils % 1.0 % (0-1.3) 08/18/23 05:15 Absolute Neutrophils 2.6 K/uL (1.8-8.0) 08/18/23 05:15 Absolute Lymphocytes 1.0 K/uL (0.7-4.9) 08/18/23 05:15 Absolute Monocytes 0.6 K/uL (0.1-1.3) 08/18/23 05:15 Absolute Eosinophils 0.3 K/uL (0-0.5) 08/18/23 05:15 Absolute Basophils 0.0 K/uL (0-0.5) 08/18/23 05:15 Sodium 138 mEq/L (136-145) 08/18/23 05:15 Potassium 4.9 mEq/L (3.5-5.1) 08/18/23 05:15 Chloride 110 mEq/L (98-107) H 08/18/23 05:15 Carbon Dioxide 28 mEq/L (21-32) 08/18/23 05:15 Anion Gap 4.9 mEq/L (5.0-15.0) L 08/18/23 05:15 BUN 39 mg/dL (7-18) H 08/18/23 05:15 Creatinine 1.16 mg/dL (0.70-1.30) 08/18/23 05:15 Est GFR (CKD-EPI) 67 ml/min (=/>90) L 08/18/23 05:15 Glucose 95 mg/dL (74-106) 08/18/23 05:15 Calcium 9.0 mg/dL (8.5-10.1) 08/18/23 05:15 Magnesium 2.2 mg/dL (1.6-2.4) 08/18/23 05:15 Albumin 2.9 g/dL (3.4-5.0) L 08/18/23 05:15 Prealbumin 19.5 mg/dL (20-40) L 08/18/23 05:15 Urine Color Light-yellow (Yellow) 08/17/23 10:32 Urine Clarity Turbid (Clear) H 08/17/23 10:32 Urine pH 7.0 (5.0-7.0) 08/17/23 10:32 Ur Specific Clear 1.014 (1.005-1.030) 08/17/23 10:32 Glucose (UA)(Auto) Negative (Negative) 08/17/23 10:32 Urine Ketones Negative (Negative) 08/17/23 10:32 Urine Blood Negative (Negative) 08/17/23 10:32 Urine Nitrite Negative (Negative) 08/17/23 10:32 Urine Bilirubin Negative (Negative) 08/17/23 10:32 Urine Urobilinogen Normal (Normal) 08/17/23 10:32 Ur Leukocyte Esterase 500 Dave/uL (Negative) H 08/17/23 10:32 Urine RBC <5 /HPF (None Seen) 08/17/23 10:32 Urine WBC 20-50 /HPF (<5) H 08/17/23 10:32 Ur Squamous Epith Cells <5 /HPF (None Seen) 08/17/23 10:32 Ur Transition Epith Cell <5 /HPF (None Seen) 08/17/23 10:32 Amorphous Crystals Trace /HPF (None Seen) 08/17/23 10:32 Urine Bacteria <20 /HPF (<20) 08/17/23 10:32 Urine Mucus Slight /HPF (None Seen) 08/17/23 10:32 Urine Culture Reflexed Reflexed 08/17/23 10:32 Urine Total Protein Negative (Negative) 08/17/23 10:32 Weight: 145 lb Wound Present: Yes Closed Surgical Incision Present: No Negative Pressure Wound Therapy Present: No Physician Update: Labs reviewed and are stable. BIMS 15, pain is 3/10. Did well with PT, WC 250' without assistance, Quad cane 250' with CGA, 15 steps CGA. Blood pressures was very low today with therapy. On florinef and midodrine. Toileting supervision, able to put the left arm sling on. Summary: Patient's care plan and fci goals have been reviewed and revised as necessary. Please see the Rehabilitation Signature page for all necessary signatures.
[2023-08-19] MEDS: GABAPENTIN 100 MG CAP PO SCH (07:20)
[2023-08-19] MEDS: MIDODRINE HCL 5 MG TABLET PO SCH ×2 (07:23→11:48)
[2023-08-19] MEDS ORDERED: NA CHLORIDE 0.9% 250 ML ONE (19:37)
[2023-08-21] MEDS: BISACODYL 10 MG RECTAL SUPP PR PRN (16:01)
[2023-08-21] MEDS: MAGNESIUM OXIDE 400 MG TAB PO SCH (20:08)
--- NOTE | 2023-08-22 01:04 | PN ---
Date of Progress Note: 08/21/2023 Subjective: Mr. Mar reports some improvement in the left shoulder pain. He has a left sling. There is a clavicular fracture. Does have a pain patch placed on the left shoulder. Reports mild my algias, arthralgias. Otherwise, he is doing very well. Says the food is very good. He ate all of h is breakfast and lunch and is happy so far with all of his therapy. Objective: No fevers, chills. No nausea, vomiting. Mild myalgias, arthralgias, especially in the l eft upper extremity, where left arm is in a sling and in the left shoulder and neck, but that is medi cated by his pain treatment regimen. Otherwise, improving bruising noted again in the face, neck, an d arm. Physical Examination: Vital Signs: Blood pressure 117/62, pulse 69, respiratory rate 16, temperature 97.9, oxygen saturati on 94%. General: Mr. Mar is sitting in a chair. His left arm in a sling and bruising noted on the face from his fall and has pain patch in the left shoulder. Lungs: Otherwise, clear to auscultation. Heart: Regular. Extremities: Show no significant edema, cyanosis, or clubbing. Laboratory Studies: White blood cell count 4.5, hemoglobin 8.9, platelets 174. Sodium 138, potassiu m 4.9, chloride 110, carbon dioxide 28, BUN 39, creatinine 1.16, prealbumin 19.5, albumin 2.9, magnes ium 2.2, calcium 9.0, glucose 95. Urinalysis shows 500 esterase, 20 to 50 white blood cells, turbid clarity. X-ray/imaging: None. Current Medications: Tylenol No. 3 one every 4 hours as needed, Eliquis 2.5 mg twice daily, baclofen 5 mg twice daily for muscle spasms as needed, Dulcolax suppository 10 mg per rectum as needed for co nstipation, Fergon 324 mg daily, Florinef 0.1 mg daily, gabapentin 300 mg at bedtime and 100 mg every day, lidocaine patch apply topically daily to the left shoulder, magnesium oxide 400 mg twice daily, meropenem, he will complete 10 days of treatment for ESBL UTI that is 1000 mg every 12 hours, midodr ine 2.5 mg in the morning, Ensure Enlive 237 mL twice daily, Senokot-S 2 at bedtime. Progress Made With Physical And Occupational Therapy: Today with physical therapy, completed sit-to- stand transfer with standby assistance and ucnkc-pb-ckydc transfers standby assistance, toilet transf er standby assistance. Did fair management, up and down 10 steps with contact guard assistance. Als o used a quad cane to ambulate 125 feet 3 times with contact guard assistance. Later on, he did supi ne-to-sit transfers independently, qfr-bs-igrzf transfers with standby assistance. With occupational therapy, supervision for bathing, donning and doffing of his gown and lower body dressing, especiall y with the brief. He had no loss of balance. Mr. Mar is making good progress with his physical and occupational therapy despite the nonweight bearing status of left upper extremity which is in a sling. Assessment: Mr. Mar is a 72-year-old patient in the rehabilitation unit with cystitis without h ematuria that is treated with meropenem for ESBL status. He has comorbidities of chronic back pain, hypertension, coronary artery disease with bypass grafting, benign prostatic hypertrophy with cardiac pacemaker placement, left clavicular fracture after fall, anemia, mild malnutrition. Plan: He will continue with physical and occupational therapy for 3 hours a day, 5 of 7 days. Piter nue with pain regimen including Tylenol No. 3, muscle relaxants, gabapentin, and lidocaine patch. To have episodes of hypotension, continue with Florinef and midodrine. For bowel movements, Dulcolax, Senokot as needed. For DVT prophylaxis, Eliquis 2.5 mg twice daily. Iron deficiency anemia addresse d with iron supplementation. Comorbidities That Are Impacting Rehabilitation: His left clavicular fracture and nonweightbearing s irineo of left upper extremity will pose a challenge for him to transfer, to ambulate, and to dress hims elf, but he is working around that. In addition, he is on IV antibiotics which we will continue until the that is 4 more days and should be completed prior to he is ready for discharge. LB/MODL Voice ID: [id number] Report ID: [id number]
[2023-08-22] MEDS: POLYETHYL GLY 3350 17 GM/DOSE PO PRN (09:57)
[2023-08-22] MEDS ORDERED: MAGNESIUM HYDROXIDE 8% 30 ML PO PRN (11:09)
[2023-08-22] MEDS: FLEET ENEMA ADULT PR ONE ×2 (11:13→14:53)
--- NOTE | 2023-08-22 15:21 | RAD REPORT ---
EXAM DESCRIPTION: RAD - Abdomen 1 View (KUB) - 08/22/2023 2:25 pm CLINICAL HISTORY: Constipation FINDINGS: The bowel gas pattern is unremarkable. Moderate to large amount of stool is present throug hout the colon. No significant abnormal calcification is displayed Right hip arthroplasty
--- NOTE | 2023-08-23 23:14 | PN ---
Date of Progress Note: 08/23/2023 Time Of Service: 1:10 p.m. Subjective: Mr. Mar is resting in bed in between therapy sessions. Sling in the left upper ext remity at his clavicular fracture site to offload the left arm. He has no new complaints. He is hyd rating well, eating well, mobilizing well. Review of Systems: No fevers, chills, nausea, vomiting, myalgias, arthralgias, rash, headache, weight change. No active psychiatric or gastrointestinal issues. I did have a KUB study done yesterday to rule out bowel obs truction. This study showed bowel gas pattern is unremarkable. There was a moderate to large amount of stool present throughout the colon. The patient did have a Fleet Enema to help clear the stool. Physical Examination: Vital Signs: Blood pressure 124/76, pulse 70, respiratory rate 16, temperature 97.8, oxygen saturati on 97%. Extremities: He has again the left arm in a sling with a clavicular fracture. He does have improvin g bruising on his face where he has mild hematomas noted and the raccoon eye on the left side otherwi se. Chest: Clear. Heart: Regular. Extremities: Show no significant edema, cyanosis, or clubbing. Laboratory Studies: No new laboratory studies. X-ray/imaging: As noted above. Medications: His medications have been reviewed and are unchanged. He is continuing with midodrine for his orthostatic hypotension. Continue with meropenem for cystitis. Continue with Senokot S for constipation. Stool softener along with laxatives also given. He has a Fleet Enema, gabapentin 100 mg in the morning, 300 mg at night, Florinef for pressure support, baclofen for muscle spasms, Eliqui s for DVT prophylaxis. Progress Made With Physical And Occupational Therapy: Today with physical therapy, he was able to am bulate with a quad cane 150 feet 3 times with standby assistance. He was able to go up and down 15 s teps with bilateral handrails and standby assistance. Sbuhfv-ls-vdb transfers done independently. S it-to-stand transfers done independently. With occupational therapy, completed 5 x 6 sets of sit-to- stand transfers at varying heights and did that well. Did use 5 pounds ankle weight 2 times 15 sets of repetitions. Mr. Mar is making great progress with physical and occupational therapy and likely will be on tr ack for his being discharged home. Assessment: Mr. Mar is a 72-year-old patient admitted to the rehabilitation unit with cystitis without hematuria. He has ESBL bacterial infection and is on meropenem. Chronic pain, hypertension, coronary artery disease with artery bypass grafting, heart also done. He has benign prostatic hyper trophy, cardiac pacemaker in the left clavicular fracture with anemia and malnutrition. Plan: 1.Continue with physical, occupational, and speech therapy for 3 hours a day, 5/7 days. 2.His comorbid conditions have been listed are addressed by continuing his current regimen of medica tions. Comorbidities That Are Impacting Rehabilitation: The left clavicular fracture, where he is nonweight bearing left upper extremity is still challenge that he is working hard to overcome, to transfer, and not bear weight with that left side and mobilize as well and he is doing that very well. LB/MODL Voice ID: [id number] Report ID: [id number]
[2023-08-24 04:25] LABS: Absolute Basophils 0.1 K/uL (0-0.5); Absolute Eosinophils 0.2 K/uL (0-0.5); Absolute Lymphocytes (CBC) 1.1 K/uL (0.7-4.9); Absolute Monocytes 0.4 K/uL (0.1-1.3); Absolute Neutrophil 3.1 K/uL (1.8-8.0); Basophils % 1.1 % (0-1.3); Eosinophils % 3.4 % (0-4.4); Hematocrit 27.8 % (39.6-49.0); Hemoglobin 9.6 g/dL (13.6-17.9); Lymphocytes % 22.3 % (15.3-44.8); MCHC 34.7 g/dL (32.0-36.0); MCV 86.6 fL (80-100); MPV 7.5 fL (7.6-11.3); Monocytes % 8.9 % (3.3-12.3); Neutrophils % 64.3 % (41.7-73.7); Nucleated Red Blood Cells % 0.1 % (0-0); Platelets 180 thou/uL (152-406); RBC Red Blood Cell Count 3.21 M/uL (4.33-5.43); Red Cell Distribution Width 12.9 % (12.1-15.2)
[2023-08-24 05:04] LABS: Albumin 3.1 g/dL (3.4-5.0); Anion Gap 8.3 mEq/L (5.0-15.0); Magnesium 2.5 mg/dL (1.6-2.4); Potassium 4.3 mEq/L (3.5-5.1); Prealbumin 26.5 mg/dL (20-40)
--- NOTE | 2023-08-24 22:56 | PN ---
Subjective: Mr. Mar is in bed in between therapy sessions. He has no complaints. He is happy with his therapy so far and making great progress in the bed, hydrating well, eating well, sleeping w ell, good bowel movement. Review of Systems: No fevers, chills, nausea, vomiting. No significant myalgias, arthralgias, rash, headache, weight ch aranza. No other issues. Physical Examination: Vital Signs: Blood pressure 113/61, pulse 69, respiratory rate 16, temperature 98, oxygen saturation 95%. General: Mr. Mar is resting comfortably. He has healing bruises on the left face, cheek, and n nilesh area. His left arm is in a sling. He denies any significant pain. He has a pain patch in the l eft shoulder and pain medicines are adequate. Chest: Good air movement. Abdomen: Soft. Extremities: No significant edema, cyanosis, or clubbing. Laboratory Studies: White blood cell count 4.8, hemoglobin 9.6, platelets 180. Sodium 135, potassiu m 4.3, chloride 102, carbon dioxide 29, BUN 39, creatinine 1.18, glucose 88, calcium 8.7, magnesium 2 .5, albumin 3.1, prealbumin 26.5, which increased from 19.5. X-ray/imaging: No new x-rays or imaging. Medications: His medications have been reviewed and remained unchanged. Progress Made With Physical And Occupational Therapy: Today, he ambulated 175 feet 3 times with lisha dby assistance. Verbal cues required. Bed mobility and nfu-ee-aswzmu and iqupgh-nw-iff done indepen dently. With occupational therapy, independent with toilet hygiene, bathing, lower body dressing, fo otwear as well. Mr. Mar is making excellent progress with his physical and occupational therapy. Assessment: Mr. Mar is a 72-year-old patient in the rehabilitation unit with cystitis without h ematuria. He has ESBL bacteremia. He is on meropenem. He has a fall with a left clavicular fractur e, left arm is in a sling. He has benign prostatic hypertrophy with a cardiac pacemaker, hypertensio n, coronary artery disease, and coronary artery bypass grafting. Plan: 1.Continue with physical and occupational therapy for 3 hours a day, 5 of 7 days. 2.Continue all antibiotics. Continue with hydration. Continue with management of bowel movements. Continue with pain medications as noted. Comorbidities That Are Impacting His Rehabilitation: The left arm which is in a sling and is nonweig htbearing is not inhibiting him from doing his therapy. He is mobilizing well. He will have to cont inue and follow up with Orthopedic Surgery before he can be released to begin to bear weight. LB/MODL Voice ID: [id number] Report ID: [id number]
--- NOTE | 2023-08-25 13:32 | P.RH.PN ---
Estimated Length of Stay: 12 Expected Discharge Date: 08/29/23 Discharge Disposition Plan: Home Family Support: Yes Nursing Home Goal: Mobility, Transfers, Self Care Vital Signs: Last Vital Signs Temp 97.6 F 08/25/23 07:01 Pulse 70 08/25/23 07:01 Resp 18 08/25/23 13:14 BP 129/67 08/25/23 07:01 Pulse Ox 95 08/25/23 13:14 Laboratory: Laboratory Last Values WBC 4.80 thou/uL (4.3-10.9) 08/24/23 04:10 RBC 3.21 M/uL (4.33-5.43) L 08/24/23 04:10 Hgb 9.6 g/dL (13.6-17.9) L 08/24/23 04:10 Hct 27.8 % (39.6-49.0) L 08/24/23 04:10 MCV 86.6 fL (80-100) 08/24/23 04:10 MCH 30.0 pg (27.0-35.0) 08/24/23 04:10 MCHC 34.7 g/dL (32.0-36.0) 08/24/23 04:10 RDW 12.9 % (12.1-15.2) 08/24/23 04:10 Plt Count 180 thou/uL (152-406) 08/24/23 04:10 MPV 7.5 fL (7.6-11.3) L 08/24/23 04:10 Neutrophils % 64.3 % (41.7-73.7) 08/24/23 04:10 Lymphocytes % 22.3 % (15.3-44.8) 08/24/23 04:10 Monocytes % 8.9 % (3.3-12.3) 08/24/23 04:10 Eosinophils % 3.4 % (0-4.4) 08/24/23 04:10 Basophils % 1.1 % (0-1.3) 08/24/23 04:10 Absolute Neutrophils 3.1 K/uL (1.8-8.0) 08/24/23 04:10 Absolute Lymphocytes 1.1 K/uL (0.7-4.9) 08/24/23 04:10 Absolute Monocytes 0.4 K/uL (0.1-1.3) 08/24/23 04:10 Absolute Eosinophils 0.2 K/uL (0-0.5) 08/24/23 04:10 Absolute Basophils 0.1 K/uL (0-0.5) 08/24/23 04:10 Sodium 135 mEq/L (136-145) L 08/24/23 04:10 Potassium 4.3 mEq/L (3.5-5.1) 08/24/23 04:10 Chloride 102 mEq/L (98-107) 08/24/23 04:10 Carbon Dioxide 29 mEq/L (21-32) 08/24/23 04:10 Anion Gap 8.3 mEq/L (5.0-15.0) 08/24/23 04:10 BUN 39 mg/dL (7-18) H 08/24/23 04:10 Creatinine 1.18 mg/dL (0.70-1.30) 08/24/23 04:10 Est GFR (CKD-EPI) 66 ml/min (=/>90) L 08/24/23 04:10 Glucose 88 mg/dL (74-106) 08/24/23 04:10 Calcium 8.7 mg/dL (8.5-10.1) 08/24/23 04:10 Magnesium 2.5 mg/dL (1.6-2.4) H 08/24/23 04:10 Albumin 3.1 g/dL (3.4-5.0) L 08/24/23 04:10 Prealbumin 26.5 mg/dL (20-40) 08/24/23 04:10 Urine Color Light-yellow (Yellow) 08/17/23 10:32 Urine Clarity Turbid (Clear) H 08/17/23 10:32 Urine pH 7.0 (5.0-7.0) 08/17/23 10:32 Ur Specific [place] 1.014 (1.005-1.030) 08/17/23 10:32 Glucose (UA)(Auto) Negative (Negative) 08/17/23 10:32 Urine Ketones Negative (Negative) 08/17/23 10:32 Urine Blood Negative (Negative) 08/17/23 10:32 Urine Nitrite Negative (Negative) 08/17/23 10:32 Urine Bilirubin Negative (Negative) 08/17/23 10:32 Urine Urobilinogen Normal (Normal) 08/17/23 10:32 Ur Leukocyte Esterase 500 Dave/uL (Negative) H 08/17/23 10:32 Urine RBC <5 /HPF (None Seen) 08/17/23 10:32 Urine WBC 20-50 /HPF (<5) H 08/17/23 10:32 Ur Squamous Epith Cells <5 /HPF (None Seen) 08/17/23 10:32 Ur Transition Epith Cell <5 /HPF (None Seen) 08/17/23 10:32 Amorphous Crystals Trace /HPF (None Seen) 08/17/23 10:32 Urine Bacteria <20 /HPF (<20) 08/17/23 10:32 Urine Mucus Slight /HPF (None Seen) 08/17/23 10:32 Urine Culture Reflexed Reflexed 08/17/23 10:32 Urine Total Protein Negative (Negative) 08/17/23 10:32 Weight: 145 lb Wound Present: Yes Closed Surgical Incision Present: No Negative Pressure Wound Therapy Present: No Physician Update: Mild anemia. Labs stable. BIMS 15. Pain 7/10 at most with multiple modalities. Mild orthostatic hypotension and left clavicular fracture. Continue antibiotics until Monday. 175' x 3 with RW, 15 steps, RW 250', independent with dressing, toileting. 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 Please see the Rehabilitation Signature page for all necessary signatures.
[2023-08-25] MEDS: BACLOFEN 10 MG TAB PO PRN (20:56)
[2023-08-25] MEDS: MAGNESIUM HYDROXIDE 8% 30 ML PO PRN (22:38)
[2023-08-27 21:28] VITALS: TEMP 97.6
[2023-08-28 07:27] VITALS: BP 131/71
== END 2023-08-28 11:30 | disposition home health service (06) | DRG 948 ==
LOC: 5TH 09:00
PROVIDERS: ADMIT Psychiatry & Neurology Neurology with Special Qualifications in Child Neurology; ATTEND Psychiatry & Neurology Neurology with Special Qualifications in Child Neurology
DX: R53.81 Other malaise (principal); N30.00 Acute cystitis without hematuria; E44.1 Mild protein-calorie malnutrition; S42.002D Fracture of unspecified part of left clavicle, subsequent encounter for fracture with routine healing; D64.9 Anemia, unspecified; E87.5 Hyperkalemia; R55 Syncope and collapse; G89.29 Other chronic pain; I10 Essential (primary) hypertension; N40.0 Benign prostatic hyperplasia without lower urinary tract symptoms; D50.9 Iron deficiency anemia, unspecified; I25.10 Atherosclerotic heart disease of native coronary artery without angina pectoris; Z86.73 Personal history of transient ischemic attack (TIA), and cerebral infarction without residual deficits; Z68.20 Body mass index [BMI] 20.0-20.9, adult; Z95.1 Presence of aortocoronary bypass graft; Z95.0 Presence of cardiac pacemaker
CPT/HCPCS: 36415; 74018; 80048; 81001; 82040; 83735; 84134; 85025; 87086; 87088; 92523; 97110; 97116; 97163; 97165; 97530; 97542; J2001; J2185; J7050